=== PATIENT | female | born 1955 | race Caucasian/White ===

== ENCOUNTER 2017-01-20 12:53 | Observation (INO) ==
[2017-01-20 13:48] LABS: Basophils % 0.5 %; Eosinophils # 0.2 K/mcL (0.0-0.6); Eosinophils % 2.8 %; Hematocrit 28.9 % (35.3-44.9); Hemoglobin 8.8 g/dL (11.5-15.4); Immature Granulocytes % 0.4 % (0-4); Lymphocytes # 1.8 K/mcL (0.6-4.6); Lymphocytes % 23.1 %; Mean Corpuscular HGB Conc 30.4 g/dL (31.6-35.5); Mean Corpuscular Hemoglobin 29.1 pg (28.0-33.3); Mean Corpuscular Volume 95.7 fL (83.0-100.0); Mean Platelet Volume 9.6 fL (9.4-12.4); Monocytes # 0.5 K/mcL (0.0-1.3); Monocytes % 6.7 %; Neutrophils # 5.2 K/mcL (1.6-8.9); Platelet Count 267 K/mcL (140-400); Red Blood Count 3.02 M/mcL (3.82-4.97); Red Cell Distribution Width 13.2 % (11.5-14.5); Segmented Neutrophils % 66.5 %
[2017-01-20 14:00] LABS: Calcium 8.1 mg/dL (8.6-10.8); Potassium 4.5 mEq/L (3.5-4.5)
[2017-01-20 14:02] LABS: INR 1.1; Prothrombin Time 11.4 Seconds (9.4-12.1)
--- NOTE | 2017-01-20 14:03 | Emergency Department Note ---
Disposition Clinical Impression: Asthma with exacerbation Qualifiers: Asthma severity: mild intermittent Qualified Code(s): J45.21 - Mild intermittent asthma with (acute) exacerbation Disposition: Admitted As Inpatient Condition: Good Referrals: Aranza Ring [Primary Care Provider] - Forms: ED Satisfaction Letter SOB HPI - General Chief Complaint: ED Shortness of Breath/Dyspnea Stated Complaint: Cough Source: patient Limitations: no limitations Nursing Notes Reviewed: Yes Vital Signs Reviewed: Yes - History of Present Illness Pt Subjective Complaint: shortness of breath, cough Onset (ago): Just PATIENT SUPPORT REPRESENTATIVE Context: other (Crushable aspiration durinG EGD procedure ) Severity: mild Consistency/Duration: constant Improves with: oxygen, rest, bronchodilators Worsens with: nothing Known history of: asthma Associated symptoms: Denies: chest pain, fever Treatment prior to arrival: oxygen, bronchodilator Cough present: No - Related Data Home Medications Medication Instructions Recorded Confirmed Albuterol Sulfate [Ventolin Hfa] 2 puff IH Q4-6H PRN 01/20/17 01/20/17 Ascorbic Acid [Vitamin C] 500 mg PO DAILY 01/20/17 01/20/17 Budesonide/Formoterol 160/4.5 2 puff IH BIDR 01/20/17 01/20/17 [Symbicort 160/4.5] Bupropion HCl [Wellbutrin Xl] 300 mg PO DAILY 01/20/17 01/20/17 Calcitriol 0.25 mcg PO DAILY 01/20/17 01/20/17 Cholecalciferol (Vitamin D3) 1,000 unit PO DAILY 01/20/17 01/20/17 [Vitamin D3] Citalopram Hydrobromide 40 mg PO DAILY 01/20/17 01/20/17 [Citalopram HBr] Cyanocobalamin (Vitamin B-12) 1,000 mcg PO DAILY 01/20/17 01/20/17 [Vitamin B12] Folic Acid 1 mg PO DAILY 01/20/17 01/20/17 Lisinopril/Hydrochlorothiazide 1 each PO DAILY 01/20/17 01/20/17 [Zestoretic 20-12.5 mg Tablet] Sertraline [Zoloft] 100 mg PO DAILY 01/20/17 01/20/17 raNITIdine HCl [Ranitidine HCl] 150 mg PO BID 01/20/17 01/20/17 Allergies Allergy/AdvReac Type Severity Reaction Status Date / Time codeine AdvReac Nausea Verified 01/20/17 09:44 morphine AdvReac Nausea Verified 01/20/17 09:44 Penicillins [PCN] AdvReac Rash Verified 01/20/17 09:44 Sulfa (Sulfonamide AdvReac Rash Verified 01/20/17 09:44 Antibiotics) All systems ED: reviewed and negative except as stated. Constitutional: Denies: fever, weakness Respiratory: Reports: wheezes Gastrointestinal: Denies: nausea, vomiting Past Medical History - Past Medical History Source: patient, old records reviewed, obtained from family, nursing notes reviewed Medical history: Reports: asthma, GERD, hypertension, renal disease, other Surgical history: Reports: appendectomy, cholecystectomy, orthopedic, other Psychiatric history: Reports: anxiety, depression - Social History Smoking Status: Never smoker Smokeless Tobacco Status: No Alcohol use: Reports: none Drug use: Reports: none Physical Exam - General Limitations: no limitations General appearance: in no apparent distress - Head Head exam: atraumatic, normocephalic, normal inspection - Eye Eye exam: Present: normal appearance, PERRL, EOMI - Expanded Eye Exam Pupils: Left: reactive - ENT ENT exam: normal exam, normal oropharynx, mucous membranes moist - Expanded ENT Exam External ear exam: Present: normal external inspection Mouth exam: Present: normal external inspection Teeth exam: Present: normal inspection Throat exam: Present: normal inspection - Neck Neck exam: Present: normal inspection, full ROM, trachea midline - Chest Chest inspection: Present: normal inspection, symmetric chest wall rise - Respiratory Respiratory exam: Present: normal lung sounds bilaterally - Cardiovascular Cardiovascular exam: Present: regular rate, normal rhythm, normal heart sounds - Abdominal Exam Abdominal exam: Present: soft, Non-Tender. Absent: tenderness, distention, guarding, rebound, rigidity - Extremities Exam Extremities exam: Present: normal inspection, full ROM. Absent: tenderness, pedal edema - Expanded Upper Extremity Exam Shoulder exam: Present: normal inspection, full ROM Arm exam: Present: normal inspection, full ROM Elbow exam: Present: normal inspection, full ROM Forearm/Wrist exam: Present: normal inspection, full ROM Hand exam: Present: normal inspection, full ROM Vascular exam: Normal: capillary refill, radial pulse - Expanded Lower Extremity Exam Hip/Pelvis exam: Present: normal inspection, full ROM Upper leg exam: Present: normal inspection, full ROM Knee exam: Present: normal inspection, full ROM Lower leg exam: Present: normal inspection, full ROM Ankle exam: Present: normal inspection, full ROM Foot/toe exam: Present: normal inspection, full ROM Neurovascular/Tendon exam: Absent: motor deficit, sensory deficit, tendon deficit - Back Exam Back exam: Present: normal inspection, full ROM. Absent: tenderness - Neurological Exam Neurological exam: Present: alert, oriented X3 - Expanded Neurological Exam Patient oriented to: Present: person, place, time Coma Scale Eye Opening: Spontaneous Coma Scale Motor Response: Obeys Commands Coma Scale Verbal Response: Oriented Coma Scale Total: 15 - Psychiatric Psychiatric exam: Present: normal affect, normal mood - Skin Skin exam: Present: warm, dry, intact, normal color Course Vital Signs Temperature 98.7 F 01/20/17 12:59 Pulse Rate 74 01/20/17 12:59 Respiratory Rate 20 01/20/17 12:59 Blood Pressure 108/58 01/20/17 12:59 O2 Sat by Pulse Oximetry 98 01/20/17 12:59 Temperature 98.7 F 01/20/17 12:59 Pulse Rate 61 01/20/17 14:33 Respiratory Rate 18 01/20/17 14:33 Blood Pressure 98/62 01/20/17 14:33 O2 Sat by Pulse Oximetry 100 01/20/17 14:33 Oxygen Delivery Oxygen Delivery Room Air Shortness of Breath/Dyspnea - MDM Narrative Medical decision making narrative: DR. FORD unsure if this is atelectasis the x-ray was done 11:00 questionable aspiration of Mucomyst. The patient's saturations are normal she does have a audible wheezing she complains of some feelings of wheezing at rest without being audible. We gave her breathing treatment and [facility] will decide if they want antibiotics or not - Medical Records Medical records reviewed: Yes I reviewed the patient's medical records. - Lab Data Lab results reviewed: Yes I reviewed the patient's lab results. Result diagrams: 01/20/17 13:36 01/20/17 13:36 Lab Results 01/20/17 01/20/17 01/20/17 Range/Units 13:36 13:36 13:36 WBC 7.8 (4.3-11.1) K/mcL RBC 3.02 L (3.82-4.97) M/mcL Hgb 8.8 L (11.5-15.4) g/dL Hct 28.9 L (35.3-44.9) % MCV 95.7 (83.0-100.0) fL MCH 29.1 (28.0-33.3) pg MCHC 30.4 L (31.6-35.5) g/dL RDW 13.2 (11.5-14.5) % Plt Count 267 (140-400) K/mcL MPV 9.6 (9.4-12.4) fL Immature Gran % 0.4 (0-4) % Seg Neutrophils % 66.5 % Lymphocytes % 23.1 % Monocytes % 6.7 % Eosinophils % 2.8 % Basophils % 0.5 % Neutrophils # 5.2 (1.6-8.9) K/mcL Lymphocytes # 1.8 (0.6-4.6) K/mcL Monocytes # 0.5 (0.0-1.3) K/mcL Eosinophils # 0.2 (0.0-0.6) K/mcL Basophils # 0.0 (0.0-0.2) K/mcL PT 11.4 (9.4-12.1) Seconds INR 1.1 APTT 34.5 (26.0-36.0) Seconds Sodium 140 (136-145) mEq/L Potassium 4.5 (3.5-4.5) mEq/L Chloride 111 H (98-109) mEq/L Carbon Dioxide 23 (19-29) mEq/L BUN 35 H (7-20) mg/dL Creatinine 2.15 H (0.57-1.11) mg/dL Est GFR ( Amer) 28 L (> 60) Est GFR (Non-Af Amer) 23 L (> 60) BUN/Creatinine Ratio 16 (6-26) Glucose 127 H (70-99) mg/dL Calculated Osmolality 300 (280-300) Calcium 8.1 L (8.6-10.8) mg/dL - Radiology Data Radiology results reviewed: Yes I reviewed the patient's radiology results.
[2017-01-20 14:05] LABS: Activated Partial Thrombo Time 34.5 Seconds (26.0-36.0)
[2017-01-20] MEDS ORDERED: methylPREDNISolone 125 MG/2 ML VIAL IVP ONE (14:32)
[2017-01-20] MEDS ORDERED: Ipratropium/Albuterol Neb 3 ML IH ONE (14:32)
[2017-01-20] MEDS ORDERED: Ondansetron 4 MG/2 ML VIAL IVP PRN (15:53)
[2017-01-20] MEDS ORDERED: Naloxone 0.4 MG/ML INJ IVP PRN (15:53)
[2017-01-20] MEDS ORDERED: Acetaminophen 325 MG TABLET PO PRN (15:53)
[2017-01-20] MEDS ORDERED: levoFLOXacin 750 MG TABLET PO SCH (16:00)
--- NOTE | 2017-01-20 16:01 | Internal Med History&Physical ---
Date of Encounter: 01/20/17 Time of Encounter: 15:59 Assessment and Plan (1) Asthma with exacerbation Current visit: Yes Status: Acute Possibly secondary to aspiration of acetylicysteine durng procedure Patient was wheezing at time of review Albuterol q4h prn wheezing Prednisone 40mg daily No hypoxia, continue to monitor Qualifiers: Asthma severity: mild intermittent Qualified Code(s): J45.21 - Mild intermittent asthma with (acute) exacerbation (2) Pneumonia Current visit: Yes Status: Acute CXR done immediately after procedure showed LLL infiltrate Chest CT done here reveals the same Most likely atelectasis vs pneumonitis However, if she has a pneumonia, it is most likely community acquired due to presence of infiltrates right after procedure Patient has no fever or cough, no sick contacts, no phlegm production Patient had no symptoms prior to presentation for her procedure this morning She has multiple medication allergies, and is on QT prolonging medications Will start doxycycline po BID, and Flagyl po for anerobic coverage May escalate prn symptoms Qualifiers: Pneumonia type: due to unspecified organism Laterality: left Lung location: unspecified part of lung Qualified Code(s): J18.9 - Pneumonia, unspecified organism (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 Continue H2 blockers Qualifiers: Monsalve's esophagus type: with dysplasia of unspecified degree Qualified Code(s): K22.719 - Monsalve's esophagus with dysplasia, unspecified; K22.71 - Monsalve's esophagus with dysplasia (4) Depression Current visit: Yes Status: Chronic No suicidal ideations Resume home meds Qualifiers: Depression Type: unspecified Qualified Code(s): F32.9 - Major depressive disorder, single episode, unspecified (5) Hypertension Current visit: Yes Status: Chronic Controlled on Lisinopril-HCTZ daily However, patient with azotemia and increase in Creatinine from last value in November Hold Home meds, Norvasc will be started for HTN prn May resume home meds if renal function improves Qualifiers: Hypertension type: essential hypertension Qualified Code(s): I10 - Essential (primary) hypertension (6) CKD (chronic kidney disease), stage III Current visit: Yes Status: Chronic Creatinine slighlty higher than baseline Gave 500cc bolus, rpt Chem a.m Avoid nephrotoxins (7) Vitamin D deficiency Current visit: Yes Status: Chronic Resume home meds (8) Morbid obesity with BMI of 45.0-49.9, adult Current visit: Yes Status: Chronic Lifestyle modification (9) Anemia Current visit: Yes Status: Chronic HB slightly lower than baseline, no bleeding, resume home meds and monitor Hb Qualifiers: Anemia type: unspecified type Qualified Code(s): D64.9 - Anemia, unspecified Internal Medicine - H&P: HPI Chief complaint: I was told to stay for observation Admitted From: Home Plans for Post Hospital Care: Home History of present illness: Ms. Deleon is a 61 year old female with CKD III, HTN, Intermittent Asthma, Depression, GERD with Barrets esophagus, Morbid Obesity She was at the GI clinic for ablation of her monsalve's esophagus when she developed shortness of breath after the procedure. The quality process engineer thought she may have aspirated acetycysteine during the procedure and recommended observation in the hospital for the next 23 hours patient is seen and evaluated at the bedside with her spouse She reports wheezing fo about 5 minutes prior to the encounter but prior to this , she had no symptoms, she felt winded after the procedure, but denies wheezing at that time She was at her baseline and had no symptoms prior to presentation for her procedure She denies chest pain, palpitations, GI or or neurological symptoms She reports a history of chronic anemia and CKD III She is rarely hospitalized and has never been intubated for her asthma, she describes her asthma as mild At time of review, she was receiving nebs and was having mild expiratory bilateral wheezing. Work up revealed a HB of 8.8 (baseline is about 10), Cr slighlty elevated to 2.1 , last recorded was 1.8 CXR done immediately procedure showed LLL infiltrates, suspected to be atelectasis or pneumonia, Chest CT done showed the same, as well as non- specific findings Past Med Surg Social Fam HX - Past Medical History Medical history: asthma, GERD, hypertension, renal disease, other Psychiatric history: anxiety, depression - Past Surgical History Surgical History: appendectomy, cholecystectomy, orthopedic, other - Social History Smoking Status: Never smoker Smokeless Tobacco Status: No Alcohol use: none Drug use: none Internal Medicine - H&P: Meds Albuterol Sulfate [Ventolin Hfa] 2 puff IH Q4-6H PRN 01/20/17 [History] Ascorbic Acid [Vitamin C] 500 mg PO DAILY 01/20/17 [History] Budesonide/Formoterol 160/4.5 [Symbicort 160/4.5] 2 puff IH BIDR 01/20/17 [ History] Bupropion HCl [Wellbutrin Xl] 300 mg PO DAILY 01/20/17 [History] Calcitriol 0.25 mcg PO DAILY 01/20/17 [History] Cholecalciferol (Vitamin D3) [Vitamin D3] 1,000 unit PO DAILY 01/20/17 [History] Citalopram Hydrobromide [Citalopram HBr] 40 mg PO DAILY 01/20/17 [History] Cyanocobalamin (Vitamin B-12) [Vitamin B12] 1,000 mcg PO DAILY 01/20/17 [History ] Folic Acid 1 mg PO DAILY 01/20/17 [History] Lisinopril/Hydrochlorothiazide [Zestoretic 20-12.5 mg Tablet] 1 each PO DAILY [History] Sertraline [Zoloft] 100 mg PO DAILY 01/20/17 [History] raNITIdine HCl [Ranitidine HCl] 150 mg PO BID 01/20/17 [History] Allergies codeine Adverse Reaction (Verified 01/20/17 09:44) Nausea morphine Adverse Reaction (Verified 01/20/17 09:44) Nausea Penicillins [PCN] Adverse Reaction (Verified 01/20/17 09:44) Rash Sulfa (Sulfonamide Antibiotics) Adverse Reaction (Verified 01/20/17 09:44) Rash All Systems PM: A 10-system review of systems was performed and is negative for pertinent findings except as documented above in the HPI. - Constitutional Constitutional: no chills, no fever(s), no night sweats - EENT Eyes: no change in vision, no discharge, no pain, no photophobia Ears: no ear discharge, no ear pain, no tinnitus Nose, mouth and throat: no dysphagia, no nasal discharge, no neck pain, no sore throat - Cardiovascular Cardiovascular ROS IM: no chest pain, no diaphoresis, no dyspnea, no lightheadedness, no palpitations, no syncope - Respiratory Respiratory: as per HPI - Gastrointestinal Gastrointestinal: no abdominal pain, no diarrhea, no hematemesis, no hematochezia, no melena, no nausea, no vomiting - Genitourinary Genitourinary: no change in urinary stream, no dysuria, no flank pain, no hematuria - Musculoskeletal Musculoskeletal ROS IM: no numbness, no tingling - Integumentary Integumentary IM: no rash, no unusual bruising - Neurological Neurological ROS: no confusion, no convulsions, no focal weakness, no numbness, no tingling, no tremor(s) - Hematologic/Lymphatic Hematologic/Lymphatic: no easy bruising - Constitutional Vitals: Temp Pulse Resp BP Pulse Ox 98.7 F 61 18 91/50 100 01/20/17 12:59 01/20/17 14:33 01/20/17 15:36 01/20/17 15:36 01/20/17 15:11 General appearance: Present: A&O X 3, morbidly obese, pleasant, no acute distress - Head Head exam: Present: atraumatic, normocephalic - Eye Eye exam: Present: PERRL, conjuntiva pink, sclera anicteric Pupils: Present: PERRL - Neck Neck exam general surgery: Present: supple, trachea midline. Absent: lymphadenopathy - Respiratory Respiratory exam: Present: CTAB, wheezes. Absent: accessory muscle use, rales, rhonchi - Cardiovascular Cardiovascular exam: Present: RRR, +S1, +S2. Absent: diastolic murmur, gallop, rubs, systolic murmur - GI/Abdominal GI/Abdominal exam: Present: normal bowel sounds, soft, no peritoneal signs. Absent: distended, tenderness - Extremities Exam Extremities exam: Present: warm, radial pulses palpable and symetrical. Absent : calf tenderness, cyanotic, pedal edema - Neurological Exam Neurological exam: Present: alert, CN II-XII intact, oriented X3, no focal deficits. Absent: pronater drift, facial droop, speech deficit - Skin Skin exam: Present: dry, intact Internal Med - H&P Results - Labs CBC & Chem 7: 01/20/17 13:36 01/20/17 13:36
[2017-01-20] MEDS ORDERED: Albuterol 2.5 MG/3 ML NEBULIZER IH PRN (16:03)
[2017-01-20] MEDS ORDERED: 0.9 % Sodium Chloride 500 ML IVC ONE (16:05)
[2017-01-20] MEDS: predniSONE 20 MG TABLET PO SCH (17:10)
[2017-01-20] MEDS ORDERED: Famotidine 20 MG TABLET PO SCH (21:00)
[2017-01-20] MEDS: Doxycycline 100 MG CAPSULE PO SCH (21:37)
[2017-01-20] MEDS: metroNIDAZOLE 500 MG TABLET PO SCH (21:37)
[2017-01-20] MEDS ORDERED: Budesonide/Formoterol 160/4.5 MDI IH SCH (22:00)
[2017-01-21 05:52] LABS: Basophils % 0.1 %; Hematocrit 28.8 % (35.3-44.9); Hemoglobin 9.1 g/dL (11.5-15.4); Immature Granulocytes % 0.6 % (0-4); Lymphocytes # 0.8 K/mcL (0.6-4.6); Lymphocytes % 4.7 %; Mean Corpuscular HGB Conc 31.6 g/dL (31.6-35.5); Mean Corpuscular Hemoglobin 30.1 pg (28.0-33.3); Mean Corpuscular Volume 95.4 fL (83.0-100.0); Monocytes # 0.1 K/mcL (0.0-1.3); Monocytes % 0.6 %; Platelet Count 284 K/mcL (140-400); Red Blood Count 3.02 M/mcL (3.82-4.97); Red Cell Distribution Width 13.2 % (11.5-14.5)
[2017-01-21 06:00] LABS: Calcium 8.3 mg/dL (8.6-10.8)
[2017-01-21 07:32] VITALS: BP 136/58
[2017-01-21] MEDS ORDERED: Famotidine 20 MG TABLET PO SCH (07:55)
[2017-01-21] MEDS ORDERED: Ascorbic Acid 500 MG TABLET PO SCH (09:00)
[2017-01-21] MEDS ORDERED: Lisinopril-HCTZ 20-12.5mg TABLET PO SCH (09:00)
[2017-01-21] MEDS ORDERED: Cyanocobalamin (B-12) 1,000 MCG TABLET PO SCH (09:00)
[2017-01-21] MEDS ORDERED: BuPROPion XL (24 HR) 150 MG TABLET PO SCH (09:00)
[2017-01-21] MEDS ORDERED: Cholecalciferol (D-3) 1,000 UNIT TABLET PO SCH (09:00)
[2017-01-21] MEDS ORDERED: Folic Acid 1 MG TABLET PO SCH (09:00)
[2017-01-21] MEDS: Doxycycline 100 MG CAPSULE PO SCH (09:04)
[2017-01-21] MEDS: predniSONE 20 MG TABLET PO SCH (09:04)
[2017-01-21] MEDS: metroNIDAZOLE 500 MG TABLET PO SCH (09:05)
--- NOTE | 2017-01-21 09:36 | Discharge Summary ---
Date of Encounter: 01/21/17 Time of Encounter: 09:34 - Discharge Diagnosis (1) Asthma with exacerbation Priority: Primary Status: Acute Qualifiers: Asthma severity: mild intermittent Qualified Code(s): J45.21 - Mild intermittent asthma with (acute) exacerbation (2) Pneumonia Priority: Secondary Status: Suspected Qualifiers: Pneumonia type: aspiration pneumonia Aspiration pneumonia type: unspecified Laterality: left Lung location: unspecified part of lung Qualified Code(s): J69.0 - Pneumonitis due to inhalation of food and vomit (3) Ellington esophagus Priority: Secondary Status: Chronic Qualifiers: Ellington's esophagus type: with dysplasia of unspecified degree Qualified Code(s): K22.719 - Ellington's esophagus with dysplasia, unspecified; K22.71 - Ellington's esophagus with dysplasia (4) Hypertension Priority: Secondary Status: Chronic Qualifiers: Hypertension type: essential hypertension Qualified Code(s): I10 - Essential (primary) hypertension (5) CKD (chronic kidney disease), stage III Priority: Secondary Status: Chronic (6) Vitamin D deficiency Priority: Secondary Status: Chronic (7) Depression Priority: Secondary Status: Chronic Qualifiers: Depression Type: unspecified Qualified Code(s): F32.9 - Major depressive disorder, single episode, unspecified (8) Morbid obesity with BMI of 45.0-49.9, adult Priority: Secondary Status: Chronic - Discharge Medications Prescriptions: Levofloxacin [Levaquin] 750 mg PO Q48H #4 tablet predniSONE [PredniSONE] 40 mg PO DAILY #8 tablet Home Medications: Albuterol Sulfate [Ventolin Hfa] 2 puff IH Q4-6H PRN 01/20/17 [History] Ascorbic Acid [Vitamin C] 500 mg PO DAILY 01/20/17 [History] Budesonide/Formoterol 160/4.5 [Symbicort 160/4.5] 2 puff IH BIDR 01/20/17 [ History] Bupropion HCl [Wellbutrin Xl] 300 mg PO DAILY 01/20/17 [History] Calcitriol 0.25 mcg PO DAILY 01/20/17 [History] Cholecalciferol (Vitamin D3) [Vitamin D3] 1,000 unit PO DAILY 01/20/17 [History] Citalopram Hydrobromide [Citalopram HBr] 40 mg PO DAILY 01/20/17 [History] Cyanocobalamin (Vitamin B-12) [Vitamin B12] 1,000 mcg PO DAILY 01/20/17 [History ] Folic Acid 1 mg PO DAILY 01/20/17 [History] Lisinopril/Hydrochlorothiazide [Zestoretic 20-12.5 mg Tablet] 1 each PO DAILY [History] Sertraline [Zoloft] 100 mg PO DAILY 01/20/17 [History] raNITIdine HCl [Ranitidine HCl] 150 mg PO BID 01/20/17 [History] Levofloxacin [Levaquin] 750 mg PO Q48H #4 tablet 01/21/17 [Rx] predniSONE [PredniSONE] 40 mg PO DAILY #8 tablet 01/21/17 [Rx] Allergies/Adverse Reactions: Allergies codeine Adverse Reaction (Verified 01/20/17 09:44) Nausea morphine Adverse Reaction (Verified 01/20/17 09:44) Nausea Penicillins [PCN] Adverse Reaction (Verified 01/20/17 09:44) Rash Sulfa (Sulfonamide Antibiotics) Adverse Reaction (Verified 01/20/17 09:44) Rash Date of admission: 01/20/17 15:05 Primary care physician: Aranza Ring Discharging clinician: Tanner Norris Anticipated date of discharge: 01/21/17 - Patient Status Disposition: Home, Self-Care Condition: Good Functional capacity at discharge: independent ambulation Overall status at discharge: patient is progressing back to baseline - Discharge Instructions Instructions: Prednisone (By mouth), Levofloxacin (By mouth), Asthma (DC) Follow Up With: Tatiana Victor CNP [Advanced Practice Nurse] - 02/02/17 8:00 am (Please follow up with Tatiana as scheduled and you will still see Dr. Ring the following week as previously scheduled) Ailyn Aggarwal MD [Partnered Physician] - (Office will call you with an appointment date and time. Follow up may end up being with one of Dr. Aggarwal's CREDENTIALING MANAGER. Office will let you know when they call you with your appointment information.) - Diet and Activity Activity: resume usual activities as tolerated Diet: advance to your usual diet Hospital course: Ms. Deleon is a 61 year old female with hx of asthma placed in observation yesterday. She had undergone EGD and there was concern for aspiration. She was found to have Barretts esophagus and CXR was concerning for pneumonia. She was wheezing as well and due to her history of asthma she was placed on steroids and abx and observed. Ms. Deleon was placed in observation on med tele. She received abx and steroids as well as aerosols. She was on a clear liquid diet and advanced to full liquid without issue. She had no acute issues overnight and in AM of she was feeling well. She was afebrile and vitals were stable. At that time she was felt ready for discharge home on PO abx and steroids with outpatient follow up. - Time Spent with Patient Total time spent providing and/or coordinating discharge services: 28min - Constitutional Vitals: Temp Pulse Resp BP Pulse Ox 98.1 F 64 16 136/58 99 01/21/17 07:32 01/21/17 07:32 01/21/17 07:32 01/21/17 07:32 01/21/17 07:32 General appearance: Present: A&O X 3, morbidly obese, pleasant - Head Head exam: Present: normocephalic - Eye Eye exam: Present: EOMI, conjuntiva pink - ENT ENT exam: Present: mucous membranes dry - Respiratory Respiratory exam: Present: CTAB. Absent: rales, rhonchi, wheezes - Cardiovascular Cardiovascular exam: Present: RRR. Absent: tachycardia - GI/Abdominal GI/Abdominal exam: Present: soft. Absent: tenderness - Extremities Exam Extremities exam: Present: warm. Absent: pedal edema, tenderness - Neurological Exam Neurological exam: Present: alert, oriented X3, no focal deficits - Psychiatric Psychiatric exam: Present: normal affect, normal mood - Skin Skin exam: Present: dry, warm. Absent: rash
[2017-01-21] MEDS ORDERED: levoFLOXacin 750 MG TABLET PO ONE (09:47)
== END 2017-01-21 10:45 | disposition home or self-care (01) ==
LOC: 2ANU 12:53 → EMEROO 12:53 → 2ANU 16:42
PROVIDERS: ADMIT Internal Medicine; ATTEND Internal Medicine

== ENCOUNTER 2017-11-06 18:31 | Inpatient (IN) ==
[2017-11-06] MEDS ORDERED: 0.9 % Sodium Chloride 1,000 ML IVC ONE ×2 (18:51→22:48)
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
[2017-11-06 19:40] LABS: Bilirubin,Urine Negative (Negative); Blood,Urine Negative (Negative); Clarity,Urine Cloudy (Clear); Color,Urine Yellow (Yellow); Glucose,Urine (UA) Normal (Normal); Ketones,Urine Negative (Negative); Leukocyte Esterase,Urine Negative (Negative); Nitrite,Urine Negative (Negative); Protein,Urine Trace mg/dL (Neg-Trace); Urobilinogen,Urine Normal (Normal)
[2017-11-06 19:43] LABS: Bacteria,Urine None Seen per hpf (None-Few); Hyaline Casts,Urine None Seen per lpf (None-Few); Squamous Epithelial Cell,Urine Many per lpf (None-Few); WBC,Urine 0-3 per hpf (0-3)
[2017-11-06 19:51] LABS: Basophils % 0.3 %; Eosinophils % 0.1 %; Hematocrit 34.9 % (35.3-44.9); Hemoglobin 11.4 g/dL (11.5-15.4); Immature Granulocytes % 0.5 % (0-4); Lymphocytes # 0.6 K/mcL (0.6-4.6); Lymphocytes % 3.7 %; Mean Corpuscular HGB Conc 32.7 g/dL (31.6-35.5); Mean Corpuscular Hemoglobin 29.7 pg (28.0-33.3); Mean Corpuscular Volume 90.9 fL (83.0-100.0); Mean Platelet Volume 9.5 fL (9.4-12.4); Monocytes # 0.5 K/mcL (0.0-1.3); Monocytes % 3.4 %; Neutrophils # 13.7 K/mcL (1.6-8.9); Platelet Count 269 K/mcL (140-400); Red Blood Count 3.84 M/mcL (3.82-4.97)
[2017-11-06 19:56] LABS: INR 1.2; Prothrombin Time 12.5 Seconds (9.4-12.1)
[2017-11-06 19:59] LABS: Activated Partial Thrombo Time 30.8 Seconds (26.0-36.0)
[2017-11-06] MEDS ORDERED: Acyclovir 750 MG in D5% in Water 250 ML IVPB STA (20:11)
[2017-11-06] MEDS ORDERED: cefTRIAXone 2,000 MG in Water for inj. (sterile) 20 ML 20 ML IVP ONE (20:11)
[2017-11-06 20:12] LABS: Alanine Aminotransferase 11 Units/L (7-52); Albumin 4.3 g/dL (3.5-5.7); Albumin/Globulin Ratio 1.5 (1.1-2.2); Alkaline Phosphatase 77 Units/L (34-104); Aspartate Amino Transferase 10 Units/L (13-39); BUN/Creatinine Ratio 9 (6-26); Bilirubin,Direct 0.2 mg/dL (0.0-0.2); Bilirubin,Indirect 0.2 mg/dL (0.0-1.2); Bilirubin,Total 0.4 mg/dL (0.3-1.0); Blood Urea Nitrogen 26 mg/dL (8-23); Calcium 8.8 mg/dL (8.6-10.3); Carbon Dioxide 20 mEq/L (23-29); Chloride 107 mEq/L (98-107); Globulin 2.9 g/dL (2.4-3.5); Glucose 136 mg/dL (70-105); Magnesium 1.3 mg/dL (1.6-2.6); Osmolality,Calculated 291 (280-300); Phosphorous 3.1 mg/dL (2.7-4.5); Potassium 4.1 mEq/L (3.5-5.1); Sodium 137 mEq/L (136-145); Total Protein 7.2 g/dL (6.4-8.9); eGFR For African Americans 21 (> 60); eGFR For Non-African Americans 17 (> 60)
[2017-11-06 20:13] LABS: Troponin I < 0.03 ng/mL (< 0.04)
[2017-11-06 21:13] LABS: Red Blood Cell,CSF < 0.002 M/mcL
[2017-11-06 21:14] LABS: Appearance,CSF Clear (Clear)
[2017-11-06 21:33] LABS: Glucose,CSF 68 mg/dL (40-70); Total Protein,CSF 27 mg/dL (15-45)
[2017-11-06] MEDS ORDERED: Naloxone 0.4 MG/ML INJ IVP PRN (22:48)
--- NOTE | 2017-11-06 22:49 | Emergency Department Note ---
Disposition Clinical Impression: Encephalopathy, Acute kidney injury, Colitis Altered mental status Qualifiers: Altered mental status type: delirium Qualified Code(s): R41.0 - Disorientation , unspecified Leukocytosis Qualifiers: Leukocytosis type: unspecified Qualified Code(s): D72.829 - Elevated white blood cell count, unspecified Closed fracture of 5th metacarpal Qualifiers: Encounter type: initial encounter Metacarpal location: neck Fracture alignment : nondisplaced Laterality: right Qualified Code(s): S62.366A - Nondisplaced fracture of neck of fifth metacarpal bone, right hand, initial encounter for closed fracture Disposition: Admitted As Inpatient Condition: Undetermined General Adult HPI - General Chief complaint: ED Altered Mental Status Stated complaint: AMS Time Seen by Provider: 11/06/17 18:51 Source: patient Mode of arrival: private vehicle Limitations: altered mental status Nursing Notes Reviewed: Yes Vital Signs Reviewed: Yes - History of Present Illness Pain Scale: 10 - Related Data Home Medications Medication Instructions Recorded Confirmed Albuterol Sulfate [Ventolin Hfa] 2 puff IH Q4-6H PRN 01/20/17 11/06/17 Ascorbic Acid [Vitamin C] 500 mg PO DAILY 01/20/17 11/06/17 Bupropion HCl [Wellbutrin Xl] 300 mg PO DAILY 01/20/17 11/06/17 Calcitriol 0.25 mcg PO DAILY 01/20/17 11/06/17 Cholecalciferol (Vitamin D3) 5,000 unit PO DAILY 01/20/17 11/06/17 [Vitamin D3] Cyanocobalamin (Vitamin B-12) 1,000 mcg PO DAILY 01/20/17 11/06/17 [Vitamin B12] Folic Acid 1 mg PO DAILY 01/20/17 11/06/17 Gabapentin [Neurontin] 600 mg PO HS 03/16/17 11/06/17 Lisinopril-HCTZ 20-12.5 [Prinzide 1 tab PO DAILY 03/16/17 11/06/17 20-12.5] Pantoprazole Sodium 40 mg PO DAILY 03/16/17 11/06/17 Trazodone HCl 100 mg PO HS 04/22/17 11/06/17 Iron Ag,Ps/C/Fa6/B12/Zn/SA/Sto 1 each PO DAILY 11/06/17 11/06/17 [Niferex Tablet] Sertraline [Zoloft] 100 mg PO DAILY 11/06/17 11/06/17 Allergies Allergy/AdvReac Type Severity Reaction Status Date / Time codeine AdvReac Nausea Verified 09/29/17 09:44 morphine AdvReac Nausea Verified 09/29/17 09:44 Penicillins [PCN] AdvReac Rash Verified 09/29/17 09:44 Sulfa (Sulfonamide AdvReac Rash Verified 09/29/17 09:44 Antibiotics) Constitutional: Reports: fever, chills, weakness ENT ED: Denies: congestion Cardiovascular: Denies: chest pain Respiratory: Denies: dyspnea Gastrointestinal: Reports: abdominal pain, nausea, vomiting, diarrhea. Denies: constipation, hematemesis, melena, hematochezia Musculoskeletal: Denies: back pain, neck pain Integumentary: Denies: rash Neurological: Reports: confusion. Denies: headache Past Medical History - Past Medical History Medical history: Reports: asthma, GERD, hyperlipidemia, hypertension, renal disease, other Surgical history: Reports: appendectomy, cholecystectomy, herniorrhaphy Psychiatric history: Reports: anxiety, depression CHRONIC CONDITION NURSE history: Reports: bilateral tubal ligation - Social History Smoking Status: Former smoker Smokeless Tobacco Status: No Alcohol use: Reports: rarely Drug use: Reports: none Physical Exam - General Limitations: altered mental status General appearance: alert, in no apparent distress Course Vital Signs Temperature 100.1 F H 11/06/17 18:34 Pulse Rate 116 11/06/17 18:34 Respiratory Rate 22 11/06/17 18:34 Blood Pressure 121/70 11/06/17 18:34 O2 Sat by Pulse Oximetry 95 11/06/17 18:34 Temperature 101.6 F H 11/06/17 21:45 Pulse Rate 82 11/06/17 23:19 Respiratory Rate 18 11/06/17 23:19 Blood Pressure 99/54 11/06/17 23:19 O2 Sat by Pulse Oximetry 98 11/06/17 23:19 Oxygen Delivery Oxygen Delivery Nasal Cannula Medical Decision Making - Lab Data Result diagrams: 11/06/17 18:52 11/06/17 18:52 Lab Results 11/06/17 11/06/17 11/06/17 Range/Units 18:52 18:52 18:52 WBC 14.9 H (4.3-11.1) K/mcL RBC 3.84 (3.82-4.97) M/mcL Hgb 11.4 L (11.5-15.4) g/dL Hct 34.9 L (35.3-44.9) % MCV 90.9 (83.0-100.0) fL MCH 29.7 (28.0-33.3) pg MCHC 32.7 (31.6-35.5) g/dL RDW 13.0 (11.5-14.5) % Plt Count 269 (140-400) K/mcL MPV 9.5 (9.4-12.4) fL Immature Gran % 0.5 (0-4) % Seg Neutrophils % 92.0 % Lymphocytes % 3.7 % Monocytes % 3.4 % Eosinophils % 0.1 % Basophils % 0.3 % Neutrophils # 13.7 H (1.6-8.9) K/mcL Lymphocytes # 0.6 (0.6-4.6) K/mcL Monocytes # 0.5 (0.0-1.3) K/mcL Eosinophils # 0.0 (0.0-0.6) K/mcL Basophils # 0.0 (0.0-0.2) K/mcL PT (9.4-12.1) Seconds INR APTT (26.0-36.0) Seconds Sodium 137 (136-145) mEq/L Potassium 4.1 (3.5-5.1) mEq/L Chloride 107 (98-107) mEq/L Carbon Dioxide 20 L (23-29) mEq/L BUN 26 H (8-23) mg/dL Creatinine 2.77 H (0.60-1.20) mg/dL Est GFR ( Amer) 21 L (> 60) Est GFR (Non-Af Amer) 17 L (> 60) BUN/Creatinine Ratio 9 (6-26) Glucose 136 H (70-105) mg/dL Calculated Osmolality 291 (280-300) Lactic Acid 0.9 (0.5-2.2) mmol/L Calcium 8.8 (8.6-10.3) mg/dL Phosphorus 3.1 (2.7-4.5) mg/dL Magnesium 1.3 L (1.6-2.6) mg/dL Total Bilirubin 0.4 (0.3-1.0) mg/dL Direct Bilirubin 0.2 (0.0-0.2) mg/dL Indirect Bilirubin 0.2 (0.0-1.2) mg/dL AST 10 L (13-39) Units/L ALT 11 (7-52) Units/L Alkaline Phosphatase 77 (34-104) Units/L Troponin I < 0.03 (< 0.04) ng/mL Serum Total Protein 7.2 (6.4-8.9) g/dL Albumin 4.3 (3.5-5.7) g/dL Globulin 2.9 (2.4-3.5) g/dL Albumin/Globulin Ratio 1.5 (1.1-2.2) Urine Color (Yellow) Urine Clarity (Clear) Urine pH (5.0-8.0) pH Units Ur Specific [place] (1.010-1.025) Urine Protein (Neg-Trace) mg/dL Urine Glucose (UA) (Normal) mg/dL Urine Ketones (Negative) mg/dL Urine Blood (Negative) Urine Nitrite (Negative) Urine Bilirubin (Negative) Urine Urobilinogen (Normal) mg/dL Ur Leukocyte Esterase (Negative) Urine Microscopic RBC (0-3) per hpf Urine Microscopic WBC (0-3) per hpf Ur Squamous Epith Cells (None-Few) per lpf Urine Bacteria (None-Few) per hpf Hyaline Casts (None-Few) per lpf Ur Culture Indicated? (NO) CSF Volume mL CSF Appearance (Clear) CSF Color (Colorless) CSF RBC (0.000 - 0.002) M/mcL CSF Tot Nucleated Cells (0-5) TNC/mcL CSF Glucose (40-70) mg/dL CSF Xanth Comm (Not Observe) CSF Total Protein (15-45) mg/dL 11/06/17 11/06/17 11/06/17 Range/Units 19:27 19:38 20:51 WBC (4.3-11.1) K/mcL RBC (3.82-4.97) M/mcL Hgb (11.5-15.4) g/dL Hct (35.3-44.9) % MCV (83.0-100.0) fL MCH (28.0-33.3) pg MCHC (31.6-35.5) g/dL RDW (11.5-14.5) % Plt Count (140-400) K/mcL MPV (9.4-12.4) fL Immature Gran % (0-4) % Seg Neutrophils % % Lymphocytes % % Monocytes % % Eosinophils % % Basophils % % Neutrophils # (1.6-8.9) K/mcL Lymphocytes # (0.6-4.6) K/mcL Monocytes # (0.0-1.3) K/mcL Eosinophils # (0.0-0.6) K/mcL Basophils # (0.0-0.2) K/mcL PT 12.5 H (9.4-12.1) Seconds INR 1.2 APTT 30.8 (26.0-36.0) Seconds Sodium (136-145) mEq/L Potassium (3.5-5.1) mEq/L Chloride (98-107) mEq/L Carbon Dioxide (23-29) mEq/L BUN (8-23) mg/dL Creatinine (0.60-1.20) mg/dL Est GFR ( Amer) (> 60) Est GFR (Non-Af Amer) (> 60) BUN/Creatinine Ratio (6-26) Glucose (70-105) mg/dL Calculated Osmolality (280-300) Lactic Acid (0.5-2.2) mmol/L Calcium (8.6-10.3) mg/dL Phosphorus (2.7-4.5) mg/dL Magnesium (1.6-2.6) mg/dL Total Bilirubin (0.3-1.0) mg/dL Direct Bilirubin (0.0-0.2) mg/dL Indirect Bilirubin (0.0-1.2) mg/dL AST (13-39) Units/L ALT (7-52) Units/L Alkaline Phosphatase (34-104) Units/L Troponin I (< 0.04) ng/mL Serum Total Protein (6.4-8.9) g/dL Albumin (3.5-5.7) g/dL Globulin (2.4-3.5) g/dL Albumin/Globulin Ratio (1.1-2.2) Urine Color Yellow (Yellow) Urine Clarity Cloudy A (Clear) Urine pH 5.0 (5.0-8.0) pH Units Ur Specific [place] 1.020 (1.010-1.025) Urine Protein Trace (Neg-Trace) mg/dL Urine Glucose (UA) Normal (Normal) mg/dL Urine Ketones Negative (Negative) mg/dL Urine Blood Negative (Negative) Urine Nitrite Negative (Negative) Urine Bilirubin Negative (Negative) Urine Urobilinogen Normal (Normal) mg/dL Ur Leukocyte Esterase Negative (Negative) Urine Microscopic RBC 3-5 H (0-3) per hpf Urine Microscopic WBC 0-3 (0-3) per hpf Ur Squamous Epith Cells Many H (None-Few) per lpf Urine Bacteria None Seen (None-Few) per hpf Hyaline Casts None Seen (None-Few) per lpf Ur Culture Indicated? NO (NO) CSF Volume 4.0 mL CSF Appearance Clear (Clear) CSF Color Colorless (Colorless) CSF RBC < 0.002 (0.000 - 0.002) M/mcL CSF Tot Nucleated Cells < 3 (0-5) TNC/mcL CSF Glucose 68 (40-70) mg/dL CSF Xanth Comm Not Observed (Not Observe) CSF Total Protein 27 (15-45) mg/dL Attestation Statement - Attestation Attestation: I, Paul Loja, examined this patient and my medical decision-making was reviewed with the [employer]/PA/Advanced Practice Nurse/Resident Physician. I agree with the documented findings, disposition and treatment plan as described except to the extent set forth below. 61-year-old female presents to the emergency department, brought by family for altered mental status. Family states she has been having GI upset with nausea and vomiting and diarrhea over the past 4-5 days. today she developed acute altered mental status, she is stating that she is on a spaceship and is concerned about alien probing during my conversation with her. Family states that this is never occurred before. No history of IV drug abuse or other illicit drug use. No recent medication changes. Patient went to visit her child in the corrections facility however she was too altered to get out of the car. When the returned he had found that she was incontinent of urine and stool in the car and was babbling to herself. No recent trauma. Patient does describe having a fever of 102 earlier in the day. She denies taking Tylenol and ibuprofen prior to arrival in the emergency department. She is not febrile on initial evaluation however she does feel warm. We repeated the temperature and it did not become febrile with an oral temperature. Antibiotics were started for possible meningitis. During this time she had CT of her head to rule out acute mass. After verbal and written consent were obtained with the family and the patient after discussion of risks and benefits , the resident, Dr. Reaves, performed a lumbar puncture which did not show significant evidence of meningitis. Patient is still receiving acyclovir until we can rule out herpetic encephalopathy. Patient will be admitted to the hospitalist for further care and evaluation of her altered mental status. Vital signs are stable prior to arrival. The high probability of a clinically significant, sudden or life threatening deterioration of the neurologic system(s) required my full and direct attention , intervention and personal management. The aggregate critical care time was 35 minutes. This time is in addition to time spent performing reported procedures but includes the following: x Data Review and interpretation x Patient assessment and monitoring of vital signs x Documentation x Medication orders and management
[2017-11-06] MEDS ORDERED: Vancomycin (wt based) 1,000 MG VIAL IVPB SCH (23:00)
[2017-11-06] MEDS ORDERED: Acyclovir 500 MG in D5% in Water 100 ML IVPB ONE (23:04)
[2017-11-06] MEDS ORDERED: 0.9 % Sodium Chloride 1,000 ML ONE (23:13)
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
[2017-11-06] MEDS ORDERED: MetroNIDAZOLE 500 MG/100 ML 500 MG/100 ML BAG IVPB ONE (23:22)
[2017-11-07] MEDS: 0.9 % Sodium Chloride 1,000 ML IVC SCH ×2 (00:45→01:00)
[2017-11-07 03:48] LABS: C.difficile Toxin A/B by PCR Not detected (Not detect); Campylobacter by PCR Not detected (Not detect); Plesiomonas shigelloides PCR Not detected (Not detect)
[2017-11-07 03:51] LABS: Adenovirus F 40/41 PCR Not detected (Not detect); Astrovirus PCR Not detected (Not detect); Cryptosporidium by PCR Not detected (Not detect); Cyclospora cayetanensis PCR Not detected (Not detect); E. coli O157 by PCR Not detected (Not detect); Entamoeba histolytica PCR Not detected (Not detect); Enteroaggregative E.coli(EAEC) Not detected (Not detect); Enteropathogenic E.coli(EPEC) Not detected (Not detect); Enterotoxigenic E.coli (ETEC) Not detected (Not detect); Giardia lamblia PCR Not detected (Not detect); Norovirus GI/GII PCR Not detected (Not detect); Rotavirus A PCR Not detected (Not detect); Salmonella PCR ***DETECTED*** (Not detect); Sapovirus PCR Not detected (Not detect); Shig/EnteroinvasiveE coli EIEC Not detected (Not detect); Shigalike tox-prod E coli STEC Not detected (Not detect); Vibrio PCR Not detected (Not detect); Vibrio cholerae PCR Not detected (Not detect); Yersinia enterocolitica PCR Not detected (Not detect)
[2017-11-07 04:28] LABS: Basophils % 0.3 %; Eosinophils % 0.1 %; Hematocrit 30.8 % (35.3-44.9); Hemoglobin 9.9 g/dL (11.5-15.4); Immature Granulocytes % 0.6 % (0-4); Lymphocytes % 7.1 %; Mean Corpuscular HGB Conc 32.1 g/dL (31.6-35.5); Mean Corpuscular Volume 93.3 fL (83.0-100.0); Mean Platelet Volume 9.4 fL (9.4-12.4); Monocytes # 1.1 K/mcL (0.0-1.3); Monocytes % 7.2 %; Neutrophils # 12.3 K/mcL (1.6-8.9); Platelet Count 241 K/mcL (140-400); Segmented Neutrophils % 84.7 %
[2017-11-07 04:49] LABS: Calcium 7.7 mg/dL (8.6-10.3); Magnesium 1.9 mg/dL (1.6-2.6); Potassium 3.8 mEq/L (3.5-5.1)
[2017-11-07] MEDS: cefTRIAXone 2,000 MG in Water for inj. (sterile) 20 ML 20 ML IVP SCH ×2 (06:25→17:07)
[2017-11-07] MEDS ORDERED: MetroNIDAZOLE 500 MG/100 ML 500 MG/100 ML BAG IVPB SCH (08:00)
[2017-11-07] MEDS: Ondansetron 4 MG/2 ML VIAL IVP PRN ×2 (08:45→19:56)
[2017-11-07] MEDS: Ascorbic Acid 500 MG TABLET PO SCH (08:46)
[2017-11-07] MEDS: BuPROPion XL (24 HR) 150 MG TABLET PO SCH (08:46)
[2017-11-07] MEDS: Cyanocobalamin (B-12) 1,000 MCG TABLET PO SCH (08:46)
[2017-11-07] MEDS: Folic Acid 1 MG TABLET PO SCH (08:46)
[2017-11-07] MEDS: Cholecalciferol (D-3) 1,000 UNIT TABLET PO SCH (08:46)
[2017-11-07] MEDS: Renal Vitamin 1 MG CAPSULE PO SCH (08:54)
[2017-11-07] MEDS ORDERED: NIFEREX PO SCH (09:00)
[2017-11-07] MEDS ORDERED: Aminoglycoside Consult 1 EACH MC ONE (09:03)
--- NOTE | 2017-11-07 09:51 | Neurology - Consult Note ---
<Callum Recio - Last Filed: 11/07/17 11:01> Date of Encounter: 11/07/17 Time of Encounter: 11:01 Assessment and Plan (1) Toxic metabolic encephalopathy Current Visit: Yes Status: Acute Patient's confusion, hallucinations with fever, nausea, vomiting, diarrhea are more likley 2nd to colitis 2nd to salmonella, dehydration, JEFF Patient's CT scan was negative. Lumbar puncture does not show evidence of viral or bacterial meningitis. Patient has nonfocal, nonlateralizing neuro exam. Brudzinski and Kernig sign negative. Currently she is awake and alert and oriented 3 CSF Gram stain negative. (2) Meningitis Current Visit: Yes Status: Ruled-out patient unlikely to have meningitis as stated above CSF shows total nucleated cells less than 3. Glucose 68, total protein 27. Gram stain negative. Plan: Discontinue vancomycin. Await HSV PCR, If negative discontinue acyclovir. (3) Acute kidney injury Current Visit: Yes Status: Acute 2nd to dehydration and sepsis, from colitis on IVF plan as per primary (4) Sepsis Current Visit: Yes Status: Acute 2nd to salmonoella colitis plan as per primary Qualifiers: Sepsis type: Salmonella Qualified Code(s): A02.1 - Salmonella sepsis (5) Colitis Current Visit: Yes Status: Acute as stated above. (6) Hypertension Current Visit: Yes Status: Chronic controlled. Qualifiers: Hypertension type: essential hypertension Qualified Code(s): I10 - Essential (primary) hypertension History of Present Illness Chief complaint: N/V HPI: Ms. Deleon is a 61 year old female presented with chief complaint of nausea, vomiting, fever. Patient reports her nausea vomiting started over the past few days with at least 20 episodes daily, and constant diarrhea. Patient was also noticed to be confused in the emergency room stating she is on a space ship. and alien's are listening to her conversation. Confusion was started and patient went to visit her child a correctional facility but was very confused even to get out of the car. She also had episode of urine and stool incontinence in the car. On admission patient had a fever 102. Due to symptoms presenting above there is concern for meningitis and neurology was consulted. Patient had lumbar puncture completed in the emergency room. CT scan of the head was negative. 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 Patient was started on vancomycin, Rocephin, acyclovir empirically. This morning patient is alert and oriented 3. She denies blurry vision, hearing loss, tinnitus, difficulty swallowing, numbness, tingling. She denies history of CVA, seizures, head trauma. Past Med Surg Social Fam HX - Past Medical History Medical history: asthma, GERD, hyperlipidemia, hypertension, renal disease, other Psychiatric history: anxiety, depression - Past Surgical History Surgical History: appendectomy, cholecystectomy, herniorrhaphy - Social History Smoking Status: Never smoker Smokeless Tobacco Status: No Alcohol use: rarely Drug use: none - Family History Mother Living Status: Still Living Hx Family Cardiac Disorders: Yes (CABG) Hx Family Neurologic Disorders: Yes (DEMENTIA) Father Living Status: Medications and Allergies Albuterol Sulfate [Ventolin Hfa] 2 puff IH Q4-6H PRN 01/20/17 [History] Ascorbic Acid [Vitamin C] 500 mg PO DAILY 01/20/17 [History] Bupropion HCl [Wellbutrin Xl] 300 mg PO DAILY 01/20/17 [History] Calcitriol 0.25 mcg PO DAILY 01/20/17 [History] Cholecalciferol (Vitamin D3) [Vitamin D3] 5,000 unit PO DAILY 01/20/17 [History] Cyanocobalamin (Vitamin B-12) [Vitamin B12] 1,000 mcg PO DAILY 01/20/17 [History ] Folic Acid 1 mg PO DAILY 01/20/17 [History] Gabapentin [Neurontin] 600 mg PO HS 03/16/17 [History] Lisinopril-HCTZ 20-12.5 [Prinzide 20-12.5] 1 tab PO DAILY 03/16/17 [History] Pantoprazole Sodium 40 mg PO DAILY 03/16/17 [History] Trazodone HCl 100 mg PO HS 04/22/17 [History] Iron Ag,Ps/C/Fa6/B12/Zn/SA/Sto [Niferex Tablet] 1 each PO DAILY 11/06/17 [ History] Sertraline [Zoloft] 100 mg PO DAILY 11/06/17 [History] Mometasone/Formoterol [Dulera 200 Mcg/5 Mcg Inhaler] 2 puff IH BID 11/07/17 [ History] 3 Allergy/AdvReac Type Severity Reaction Status Date / Time codeine AdvReac Nausea Verified 09/29/17 09:44 morphine AdvReac Nausea Verified 09/29/17 09:44 Penicillins [PCN] AdvReac Rash Verified 09/29/17 09:44 Sulfa (Sulfonamide AdvReac Rash Verified 09/29/17 09:44 Antibiotics) All Systems: The remainder of the systems were reviewed and are negative Review of Systems: Constitutional: Reports fevers, chills HEENT: Reports headache, neck pain. denies vision changes, neck pain, sore throat, rhinorrhea Heart: Denies chest pain palpitations Lungs: Denies shortness of breath cough Abdomen: Reports abdominal pain, nausea, vomiting, diarrhea Back: Denies back pain Kidney: Denies dysuria, hematuria Skin: warm and dry Extremities: Denies swelling, pain Neuro: As per history of present illness Physical Examination - Vital Signs Vital Signs: Initial Vital Signs Temp Pulse Resp BP Pulse Ox 100.1 F H 116 22 121/70 95 11/06/17 18:34 11/06/17 18:34 11/06/17 18:34 11/06/17 18:34 11/06/17 18:34 - Exam Exam: General: without distress HEENT: Head atraumatic, normocephalic, EOMI, PERRLA, neck tender to palpation, absent lymphadenopathy, Moist Mucous Membranes, Heart: Regular rate and rhythm with no murmur Lungs: Clear to auscultation bilaterally Abdomen: Soft tender diffusely, nondistended positive bowel sounds Skin: warm and dry Extremities: Absent pedal edema, Neuro: Negative Brudzinski or Kernig sign Vascular: Pedal and radial pulses 2 out of 4 - Constitutional General appearance: uncomfortable - Neurologic Sensorimotor examination: intact Detailed motor examination: full strength in all major muscle groups Motor examination - right side: 5/5: deltoids, biceps, triceps, wrist flexion, wrist extension, rug cleaning supervisor, hip flexors, tibialis Anterior, quadriceps, toe extension (EHL), plantarflexion Motor examination - left side: 5/5: deltoids, biceps, triceps, wrist flexion, wrist extension, hip flexors, rug cleaning supervisor, quadriceps, tibialis Anterior, toe extension (EHL), plantarflexion Detailed sensory examination: intact Reflexes: Biceps: 2+, Triceps: 2+, Brachioradialis: 2+, Patella: 2+, Achilles: 2 + Mental Status Examination: awake, alert, oriented to person, oriented to place, oriented to time, follows commands appropriately, answers questions appropriately, no aphasia, no aproxia Cranial nerve examination: PERRL, EOMI, visual morse intact, sensory to face intact, mastication intact, no facial asymmetry is present, no dysarthria, hearing is intact symmetrically, soft palate elevates bilaterally upon phonation , flexes SCM and trapezius muscles symmetrically with full power, tongue protrudes midline, no atrophy or facial fasiculations present Cerebellar examination: no dysmetria, performs finger to nose and heel to vance symmetrically without ataxia, no truncal ataxia, no difficulty with rapid alternating movements Results - Laboratory Findings CBC and BMP: 11/07/17 04:08 11/07/17 04:08 Abnormal lab findings: Abnormal lab results WBC 14.6 K/mcL (4.3-11.1) H 11/07/17 04:08 RBC 3.30 M/mcL (3.82-4.97) L 11/07/17 04:08 Hgb 9.9 g/dL (11.5-15.4) L D 11/07/17 04:08 Hct 30.8 % (35.3-44.9) L 11/07/17 04:08 Neutrophils # 12.3 K/mcL (1.6-8.9) H 11/07/17 04:08 PT 12.5 Seconds (9.4-12.1) H 11/06/17 19:38 Sodium 135 mEq/L (136-145) L 11/07/17 04:08 Chloride 109 mEq/L (98-107) H 11/07/17 04:08 Carbon Dioxide 18 mEq/L (23-29) L 11/07/17 04:08 BUN 27 mg/dL (8-23) H 11/07/17 04:08 Creatinine 2.69 mg/dL (0.60-1.20) H 11/07/17 04:08 Est GFR ( Amer) 22 (> 60) L 11/07/17 04:08 Est GFR (Non-Af Amer) 18 (> 60) L 11/07/17 04:08 Glucose 134 mg/dL (70-105) H 11/07/17 04:08 Calcium 7.7 mg/dL (8.6-10.3) L 11/07/17 04:08 AST 10 Units/L (13-39) L 11/06/17 18:52 Urine Clarity Cloudy (Clear) A 11/06/17 19:27 Urine Microscopic RBC 3-5 per hpf (0-3) H 11/06/17 19:27 Ur Squamous Epith Cells Many per lpf (None-Few) H 11/06/17 19:27 Stool Salmonella PCR DETECTED (Not detect) A* 11/07/17 02:17 Consult Discharge Plan - Plan Referrals: Aranza Ring [Primary Care Provider] - <Audi Scott I - Last Filed: 11/07/17 15:08> Date of Encounter: 11/07/17 Assessment and Plan (1) Toxic metabolic encephalopathy Current Visit: Yes Status: Acute Pt was seen and examined, my medical decision was reviewed with the Resident Physician, I agree with the documented findings, disposition and treatment plas as described except to the extent set forth below. At the moment patient did not have any clinical signs and symptoms of meningitis at the same time no focal motor deficit to be suggestive of his stroke or seizure. Suspect that her mental status changes were likely related to underlying infectious etiology that has been addressed and is been already treated. Suggest follow ID recommendations from neurology standpoint I did not see any sinus symptoms to be suggestive of his stroke. Audi Scott MD History of Present Illness HPI: Ms. Deleon is a 61 year old female All Systems: The remainder of the systems were reviewed and are negative Physical Examination - Vital Signs Vital Signs: Initial Vital Signs Temp Pulse Resp BP Pulse Ox 100.1 F H 116 22 121/70 95 11/06/17 18:34 11/06/17 18:34 11/06/17 18:34 11/06/17 18:34 11/06/17 18:34 Results - Laboratory Findings CBC and BMP: 11/07/17 04:08 11/07/17 04:08 Abnormal lab findings: Abnormal lab results WBC 14.6 K/mcL (4.3-11.1) H 11/07/17 04:08 RBC 3.30 M/mcL (3.82-4.97) L 11/07/17 04:08 Hgb 9.9 g/dL (11.5-15.4) L D 11/07/17 04:08 Hct 30.8 % (35.3-44.9) L 11/07/17 04:08 Neutrophils # 12.3 K/mcL (1.6-8.9) H 11/07/17 04:08 PT 12.5 Seconds (9.4-12.1) H 11/06/17 19:38 Sodium 135 mEq/L (136-145) L 11/07/17 04:08 Chloride 109 mEq/L (98-107) H 11/07/17 04:08 Carbon Dioxide 18 mEq/L (23-29) L 11/07/17 04:08 BUN 27 mg/dL (8-23) H 11/07/17 04:08 Creatinine 2.69 mg/dL (0.60-1.20) H 11/07/17 04:08 Est GFR ( Amer) 22 (> 60) L 11/07/17 04:08 Est GFR (Non-Af Amer) 18 (> 60) L 11/07/17 04:08 Glucose 134 mg/dL (70-105) H 11/07/17 04:08 Calcium 7.7 mg/dL (8.6-10.3) L 11/07/17 04:08 AST 10 Units/L (13-39) L 11/06/17 18:52 Urine Clarity Cloudy (Clear) A 11/06/17 19:27 Urine Microscopic RBC 3-5 per hpf (0-3) H 11/06/17 19:27 Ur Squamous Epith Cells Many per lpf (None-Few) H 11/06/17 19:27 Stool Salmonella PCR DETECTED (Not detect) A* 11/07/17 02:17
[2017-11-07] MEDS: Acetaminophen 325 MG TABLET PO PRN ×2 (10:36→17:21)
[2017-11-07] MEDS: Ringers Solution, Lactated 1,000 ML IVC SCH (11:19)
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
--- NOTE | 2017-11-07 13:38 | Infectious Disease Consult ---
Date of Encounter: 11/07/17 Time of Encounter: 13:33 Assessment and Plan (1) Sepsis Status: Acute Assessment and plan: Temp 101.6, tachycardia, tachypnea, leukocytosis lactic acid was 0.9, 0.6 source of infection likely secondary to gastroenteritis. CT of the abdomen pelvis showed right, descending and proximal sigmoid colon is , likely infectious. Chest x-ray showed no acute process CT showed no acute abnormality urinalysis unremarkable lumbar puncture was done in the ED, Gram stain was negative, CSF WNL stool panel positive for salmonella. Creatinine clearance: 29 based on ideal body weight. patient received one dose acyclovir, one dose vancomycin, 2 doses rocephin empirically as treatment for meningitis. plan: discontinued vanc, rocephin, acyclovir, as meningitis unlikely. CSF culture pending blood cultures x2 pending HSV PCR pending cipro day 1- duration of treatment will depend on blood cultures. Qualifiers: Sepsis type: Salmonella Qualified Code(s): A02.1 - Salmonella sepsis (2) Salmonella enteritis Status: Acute Assessment and plan: Plan as above (3) Acute on chronic renal failure Status: Acute Assessment and plan: baseline Cr about 1.8 etiology likely secondary to dehydration, diarrhea management per primary service. Qualifiers: Acute renal failure type: unspecified Chronic kidney disease stage: stage 3 (moderate) Qualified Code(s): N17.9 - Acute kidney failure, unspecified; N18.3 - Chronic kidney disease, stage 3 (moderate); N18.3 - Chronic kidney disease, stage 3 (moderate) (4) Colitis Status: Acute Assessment and plan: plan as #1 above (5) Encephalopathy Status: Resolved Assessment and plan: Likely secondary to sepsis. Currently resolved. Continue to monitor. (6) Hypertension Status: Chronic Assessment and plan: Management per primary service Qualifiers: Hypertension type: essential hypertension Qualified Code(s): I10 - Essential (primary) hypertension (7) Closed fracture of 5th metacarpal Status: Acute Assessment and plan: Splint placed in the ER orthopedic surgery consulted Qualifiers: Encounter type: initial encounter Metacarpal location: neck Fracture alignment: nondisplaced Laterality: right Qualified Code(s): S62.366A - Nondisplaced fracture of neck of fifth metacarpal bone, right hand, initial encounter for closed fracture Infectious Disease HPI - Data of Consult Patient: new to practice Consult date: 11/07/17 Requesting Physician: Andreas Panda MD Primary Care Provider: Aranza Ring - Consult Narrative Reason for consult: sepsis, suspected meningitis History of present illness: Ms. Deleon is a 61 year old female who arrived to [facility] on 11/06/17 for headache, fever, nausea x2 days, and vomiting x1 day. Infectious disease service was consult it on 11/07/17 for suspected meningitis. Her past medical history includes stage III CKD, iron deficiency anemia, Ashley syndrome, hypertension, asthma, GERD s/p Conchis surgery, chronic abdominal pain. Patient says that ever since her Conchis fundoplication back in February, she has had chronic nausea and diarrhea. On Tuesday, she was having several episodes of diarrhea per day to the point where she could barely sit down without having to get up against the bathroom. She was also having episodes of vomiting that were too numerous to count as well. She denies any blood in her vomit or any blood in her stools. Per family members, patient was also hallucinating upon arrival to the emergency department. Upon arrival to the ED , she had temperature of 100.6, heart rate 116, respirations 22, blood pressure 121/70, oxygen saturation 95% on 3 L. puncture was done in the emergency room and cultures are pending. CSF fluid is within normal limits. Upon admission, pertinent labs include WBC of 14.9, neutrophil 13.7, creatinine 2.77, magnesium 1.3. LFTs were within normal limits, UA unremarkable. Stool panel positive for salmonella. Patient was placed on empiric coverage for meningitis including vancomycin, Rocephin, acyclovir. Neurology was consult it for encephalopathy. Since her admission, vancomycin, acyclovir, Rocephin has been discontinued as CSF analysis showed low likelihood of meningitis. Today, patient states that she still feels ill. She has had multiple episodes of diarrhea since this morning. She did have nausea that was relieved with Zofran. She admits to subjective fevers and chills. She denies chest pain or shortness of breath. Patient is having significant amount of abdominal pain and denies any further issues today. CC: Andreas Panda MD Past Med Surg Social Fam HX - Past Medical History Medical history: asthma, GERD, hyperlipidemia, hypertension, renal disease, other Psychiatric history: anxiety, depression - Past Surgical History Surgical History: appendectomy, cholecystectomy, herniorrhaphy - Social History Smoking Status: Never smoker Smokeless Tobacco Status: No Alcohol use: rarely Drug use: none - Family History Mother Living Status: Still Living Hx Family Cardiac Disorders: Yes (CABG) Hx Family Neurologic Disorders: Yes (DEMENTIA) Father Living Status: Infectious Disease-CN:Meds Albuterol Sulfate [Ventolin Hfa] 2 puff IH Q4-6H PRN 01/20/17 [History] Ascorbic Acid [Vitamin C] 500 mg PO DAILY 01/20/17 [History] Bupropion HCl [Wellbutrin Xl] 300 mg PO DAILY 01/20/17 [History] Calcitriol 0.25 mcg PO DAILY 01/20/17 [History] Cholecalciferol (Vitamin D3) [Vitamin D3] 5,000 unit PO DAILY 01/20/17 [History] Cyanocobalamin (Vitamin B-12) [Vitamin B12] 1,000 mcg PO DAILY 01/20/17 [History ] Folic Acid 1 mg PO DAILY 01/20/17 [History] Gabapentin [Neurontin] 600 mg PO HS 03/16/17 [History] Lisinopril-HCTZ 20-12.5 [Prinzide 20-12.5] 1 tab PO DAILY 03/16/17 [History] Pantoprazole Sodium 40 mg PO DAILY 03/16/17 [History] Trazodone HCl 100 mg PO HS 04/22/17 [History] Iron Ag,Ps/C/Fa6/B12/Zn/SA/Sto [Niferex Tablet] 1 each PO DAILY 11/06/17 [ History] Sertraline [Zoloft] 100 mg PO DAILY 11/06/17 [History] Mometasone/Formoterol [Dulera 200 Mcg/5 Mcg Inhaler] 2 puff IH BID 11/07/17 [ History] 3 Allergy/AdvReac Type Severity Reaction Status Date / Time codeine AdvReac Nausea Verified 09/29/17 09:44 morphine AdvReac Nausea Verified 09/29/17 09:44 Penicillins [PCN] AdvReac Rash Verified 09/29/17 09:44 Sulfa (Sulfonamide AdvReac Rash Verified 09/29/17 09:44 Antibiotics) All systems: reviewed and no additional remarkable complaints except as stated Exam - Constitutional Vitals: Temp Pulse Resp BP Pulse Ox 99.7 F H 68 16 113/64 97 11/07/17 11:27 11/07/17 11:27 11/07/17 11:27 11/07/17 11:27 11/07/17 11:27 General appearance: mild distress, morbidly obese Exam: Lethargic, mild distress, obese - Head Head exam: Present: atraumatic, normocephalic - Respiratory Respiratory exam: Present: CTAB - Cardiovascular Cardiovascular exam: Present: RRR, +S1, +S2 - GI/Abdominal GI/Abdominal exam: Present: distended, soft Additional comments: Soft, distended, significant tenderness to palpation in all 4 quadrants, no guarding present. - Extremities Exam Extremities exam: Present: normal inspection. Absent: calf tenderness, pedal edema, tenderness - Neurological Exam Neurological exam: Present: alert, oriented X3, no focal deficits Additional comments: No signs of meningitis - Psychiatric Psychiatric exam: Present: anxious, depressed Infectious Disease CN: Results - Labs CBC & Chem 7: 11/07/17 04:08 11/07/17 04:08 Serology: Serology 11/07/17 Range/Units 02:17 Stl C. cayetanensis PCR Not detected (Not detect) Stool Rotavirus A PCR Not detected (Not detect) Stl Adenov F 40/41 PCR Not detected (Not detect) Stool Astrovirus (PCR) Not detected (Not detect) Stool Campylobacter PCR Not detected (Not detect) Stl C. diff Tox A/B PCR Not detected (Not detect) Stool Cryptosporidium PCR Not detected (Not detect) Stl Sh Tox Pr E STEC PCR Not detected (Not detect) Stool E coli O157 PCR Not detected (Not detect) Stl Enterotoxigenic E PCR Not detected (Not detect) Stool EPEC (PCR) Not detected (Not detect) Stool EAEC (PCR) Not detected (Not detect) Stl E. histolytica PCR Not detected (Not detect) Stool Giardia Lamblia PCR Not detected (Not detect) Stool Salmonella PCR DETECTED A* (Not detect) Stool Sapovirus (PCR) Not detected (Not detect) Stl P. shigelloides PCR Not detected (Not detect) Stl Shigella/EIEC PCR Not detected (Not detect) St Y.enterocolitica PCR Not detected (Not detect) Stool Vibrio (PCR) Not detected (Not detect) Stl Vibrio cholerae PCR Not detected (Not detect) Stl Norovirus GI/GII PCR Not detected (Not detect) Stl GI Panel (PCR) Com See below Consult Discharge Plan - Plan Referrals: Aranza Ring [Primary Care Provider] - - Attending Attestation I examined this patient and my medical decision-making was reviewed with the Resident Physician. I agree with the documented findings, disposition and treatment plan as described except to the extent set forth below. This is an addendum to original report dictated by resident physician, please refer to residents note for full details. Patient is a 61-year-old woman who was admitted to [place] on November 06 with headache, fever, nausea and vomiting. We are consulted today for sepsis and suspected meningitis. Patient is 61-year-old woman with past medical history mentioned below presented to the emergency department complaining of a headache, fever and nausea for about 2 days prior to admission. Patient also had a vomiting episode on the day of admission. Patient came in to the ED for evaluation. Since admission, patient has been febrile with a MAXIMUM TEMPERATURE of 101.6 Fahrenheit, she has been tachycardic with a heart rate as high as 116, presenting WBC was 14.9 thousand with 92% neutrophils no bands. Patient also was noted to have a BUN of 26 creatinine of 2.77. A UA was obtained and was not impressive. Patient had an LP done on November 06 which showed pleocytosis less than 3, protein of 27 and glucose of 68. Gram stains revealed no bacteria. Cultures are pending. Patient had a stool sent for PCR which came back at detecting salmonella. Abdominal and pelvic CT done on November 06 revealed right descending and proximal sigmoid colitis, infectious or inflammatory. A head CT showed no acute intracranial abnormalities, a chest x- ray showed no acute process. A right wrist fracture reveals right fifth metacarpal head/neck junction fracture with dorsal soft tissue swelling in the hand. On further questioning, patient does have chicken, Doxy, cats and a dog at home. Patient denies any other family members with similar symptoms. Assessment and plan: 1. Severe Sepsis (3 SIRS criteria plus end organ damage) secondary to #2 2. Salmonella gastroenteritis 3. Metabolic Encephalopathy (due to salmonellosis vs typhoid fever?) [employer] work up negative for meningitis 4. Acute on chronic kidney injury CrCl 29 Recommendations d/c vancomycin, rocephine, Acyclovir Start ciprofloxacin IV dose adjust based on CrCl Await blood cultures to finalize
--- NOTE | 2017-11-07 13:50 | Internal Med Progress Note ---
Date of Encounter: 11/07/17 Time of Encounter: 13:48 - Assessment and plan (1) Sepsis Current Visit: Yes Status: Acute Assessment and plan: WBC count is 14.6 today. Continue IV hydration. Stool studies positive for salmonella. Cultures are so far negative. Follow infectious disease recommendations. Continue Rocephin. No signs of meningitis on my exam today. Infectious disease and neurology have been consulted to evaluate this further. We will follow recommendations. Qualifiers: Sepsis type: Salmonella Qualified Code(s): A02.1 - Salmonella sepsis (2) Colitis Current Visit: Yes Status: Acute Assessment and plan: With Salmonella. Continue Rocephin. Supportive care with IV fluids. Antiemetics for nausea or vomiting. We will stop Flagyl. (3) Encephalopathy Current Visit: Yes Status: Resolved Assessment and plan: Improved. Back to baseline now. Acute metabolic encephalopathy due to underlying sepsis. (4) Ellington esophagus Current Visit: Yes Status: Chronic Qualifiers: Ellington's esophagus type: with dysplasia of unspecified degree Qualified Code(s): K22.719 - Ellington's esophagus with dysplasia, unspecified; K22.71 - Ellington's esophagus with dysplasia (5) Hypertension Current Visit: Yes Status: Chronic Assessment and plan: Blood Pressure is well controlled Qualifiers: Hypertension type: essential hypertension Qualified Code(s): I10 - Essential (primary) hypertension (6) Closed fracture of 5th metacarpal Current Visit: Yes Status: Acute Assessment and plan: Splint in place. We will consult orthopedics for recommendations. Qualifiers: Encounter type: initial encounter Metacarpal location: neck Fracture alignment: nondisplaced Laterality: right Qualified Code(s): S62.366A - Nondisplaced fracture of neck of fifth metacarpal bone, right hand, initial encounter for closed fracture (7) Acute on chronic renal failure Current Visit: Yes Status: Acute Assessment and plan: Improving. Creatinine 2.6 Today. Continue IV hydration Qualifiers: Acute renal failure type: unspecified Chronic kidney disease stage: stage 3 (moderate) Qualified Code(s): N17.9 - Acute kidney failure, unspecified; N18.3 - Chronic kidney disease, stage 3 (moderate); N18.3 - Chronic kidney disease, stage 3 (moderate) (8) DVT prophylaxis Current Visit: Yes Status: Acute Assessment and plan: On subcutaneous heparin (9) Morbid obesity with BMI of 40.0-44.9, adult Current Visit: Yes Status: Chronic - Time Spent With Patient Total time spent is greater than 50% in coordination of care (as documented) at patient's floor/unit and/or counseling patient: - Subjective Interval history: Patient denies any headache. No photophobia. No neck stiffness or rigidity. Does report diarrhea and nausea. No hematochezia. - Constitutional Vitals: Temp Pulse Resp BP Pulse Ox 99.7 F H 68 16 113/64 97 11/07/17 11:27 11/07/17 11:27 11/07/17 11:27 11/07/17 11:27 11/07/17 11:27 General appearance: Present: cooperative, mild distress, A&O X 3, no acute distress, answers questions appropriately - Neck Neck exam general surgery: Present: supple, trachea midline. Absent: lymphadenopathy - Respiratory Respiratory exam: Present: CTAB. Absent: accessory muscle use, rales, rhonchi, wheezes - Cardiovascular Cardiovascular exam: Present: RRR, +S1, +S2. Absent: diastolic murmur, gallop, rubs, systolic murmur - GI/Abdominal GI/Abdominal exam: Present: normal bowel sounds, soft, tenderness (Epigastric), no peritoneal signs. Absent: distended - Extremities Exam Extremities exam: Present: warm, radial pulses palpable and symmetrical. Absent : calf tenderness, cyanotic, pedal edema - Neurological Exam Neurological exam: Present: CN II-XII intact, oriented X3, no focal deficits. Absent: facial droop, speech deficit Internal Medicine: Result - Labs CBC & Chem 7: 11/07/17 04:08 11/07/17 04:08 Labs: Short CBC 11/07/17 Range/Units 04:08 WBC 14.6 H (4.3-11.1) K/mcL Hgb 9.9 L D (11.5-15.4) g/dL Hct 30.8 L (35.3-44.9) % Plt Count 241 (140-400) K/mcL Neutrophils # 12.3 H (1.6-8.9) K/mcL BMP 11/07/17 04:08 Sodium 135 L Potassium 3.8 Chloride 109 H Carbon Dioxide 18 L BUN 27 H Creatinine 2.69 H Glucose 134 H Calcium 7.7 L - ABG Interpretation ABG results: PT/INR, D-dimer PT 12.5 Seconds (9.4-12.1) H 11/06/17 19:38 Consult Discharge Plan - Plan Referrals: Aranza Ring [Primary Care Provider] -
[2017-11-07] MEDS: Sucralfate 1 GM TABLET PO SCH ×2 (17:07→20:10)
[2017-11-07] MEDS: *HR* Heparin 5,000 UNIT/ML VIAL SQ SCH (17:08)
[2017-11-07] MEDS: Gabapentin 300 MG CAPSULE PO SCH (19:56)
[2017-11-07] MEDS ORDERED: D5 IVPB SCH (21:00)
[2017-11-07] MEDS ORDERED: ACYCLOVIR IVPB SCH (21:00)
[2017-11-07] MEDS ORDERED: WATER IVPB SCH (21:00)
--- NOTE | 2017-11-08 00:16 | Event Note ---
Date of Encounter: 11/08/17 Time of Encounter: 22:03 Alerted by pts. nurse that patient was reporting headache as 10/10 and reporting throbbing of her left arm to her chest and rectum with dizziness. Nurse check blood glucose which was 141, heart rate 63 temp 90 8.2F, BP 148/78. Stat troponin ordered and we will trend. Stat EKG ordered which shows sinus rhythm. Due to intense headache rated 10/10, stat CT of the head/brain ordered. Initial troponin <0.03. Patient to be monitored closely and will await CT results.
[2017-11-08] MEDS ORDERED: *HR* OxyCODONE/APAP 5/325 TABLET PO ONE (04:03)
[2017-11-08] MEDS: cefTRIAXone 2,000 MG in Water for inj. (sterile) 20 ML 20 ML IVP SCH (04:21)
[2017-11-08] MEDS: *HR* Heparin 5,000 UNIT/ML VIAL SQ SCH ×2 (04:21→17:09)
[2017-11-08] MEDS: Ringers Solution, Lactated 1,000 ML IVC SCH (06:16)
[2017-11-08] MEDS: BuPROPion XL (24 HR) 150 MG TABLET PO SCH (08:02)
[2017-11-08] MEDS: Ascorbic Acid 500 MG TABLET PO SCH (08:02)
[2017-11-08] MEDS: Sucralfate 1 GM TABLET PO SCH ×4 (08:02→20:05)
[2017-11-08] MEDS: Cyanocobalamin (B-12) 1,000 MCG TABLET PO SCH (08:02)
[2017-11-08] MEDS: Renal Vitamin 1 MG CAPSULE PO SCH (08:02)
[2017-11-08] MEDS: Folic Acid 1 MG TABLET PO SCH (08:02)
[2017-11-08] MEDS: Cholecalciferol (D-3) 1,000 UNIT TABLET PO SCH (08:02)
[2017-11-08 08:42] LABS: Basophils # 0.1 K/mcL (0.0-0.2); Basophils % 0.5 %; Eosinophils # 0.1 K/mcL (0.0-0.6); Eosinophils % 0.6 %; Hematocrit 29.2 % (35.3-44.9); Hemoglobin 9.2 g/dL (11.5-15.4); Immature Granulocytes % 0.5 % (0-4); Lymphocytes # 1.3 K/mcL (0.6-4.6); Lymphocytes % 13.2 %; Mean Corpuscular HGB Conc 31.5 g/dL (31.6-35.5); Mean Corpuscular Hemoglobin 28.8 pg (28.0-33.3); Mean Corpuscular Volume 91.5 fL (83.0-100.0); Mean Platelet Volume 9.4 fL (9.4-12.4); Monocytes # 0.7 K/mcL (0.0-1.3); Monocytes % 6.7 %; Platelet Count 231 K/mcL (140-400); Red Blood Count 3.19 M/mcL (3.82-4.97); Red Cell Distribution Width 13.2 % (11.5-14.5); Segmented Neutrophils % 78.5 %
[2017-11-08 08:50] LABS: Potassium 3.6 mEq/L (3.5-5.1)
--- NOTE | 2017-11-08 10:21 | Infectious Disease Progress No ---
Date of Encounter: 11/08/17 Time of Encounter: 10:19 - Assessment and Plan (1) Sepsis Current Visit: Yes Status: Acute Temp 101.6, tachycardia, tachypnea, leukocytosis lactic acid was 0.9, 0.6 source of infection likely secondary to gastroenteritis. CT of the abdomen pelvis showed right, descending and proximal sigmoid colon is , likely infectious. Chest x-ray showed no acute process CT showed no acute abnormality urinalysis unremarkable lumbar puncture was done in the ED, Gram stain was negative, CSF WNL stool panel positive for salmonella. Creatinine clearance: 29 based on ideal body weight. patient received one dose acyclovir, one dose vancomycin, 2 doses rocephin empirically as treatment for meningitis. plan: final CSF culture pending blood cultures x2 pending-prelim negative HSV PCR pending cipro day 2- duration of treatment will depend on blood cultures. changed dosing to q12H Qualifiers: Sepsis type: Salmonella Qualified Code(s): A02.1 - Salmonella sepsis (2) Salmonella enteritis Current Visit: Yes Status: Acute Plan as above (3) Acute on chronic renal failure Current Visit: Yes Status: Acute baseline Cr about 1.8 etiology likely secondary to dehydration, diarrhea management per primary service. Qualifiers: Acute renal failure type: unspecified Chronic kidney disease stage: stage 3 (moderate) Qualified Code(s): N17.9 - Acute kidney failure, unspecified; N18.3 - Chronic kidney disease, stage 3 (moderate); N18.3 - Chronic kidney disease, stage 3 (moderate) (4) Colitis Current Visit: Yes Status: Acute plan as #1 above (5) Encephalopathy Current Visit: Yes Status: Resolved Likely secondary to sepsis. Currently resolved. Continue to monitor. (6) Hypertension Current Visit: Yes Status: Chronic Management per primary service Qualifiers: Hypertension type: essential hypertension Qualified Code(s): I10 - Essential (primary) hypertension (7) Closed fracture of 5th metacarpal Current Visit: Yes Status: Acute Splint placed in the ER orthopedic surgery consulted Qualifiers: Encounter type: initial encounter Metacarpal location: neck Fracture alignment: nondisplaced Laterality: right Qualified Code(s): S62.366A - Nondisplaced fracture of neck of fifth metacarpal bone, right hand, initial encounter for closed fracture - Subjective Interval history: 61-year-old female evaluated at bedside. She admits to nausea without vomiting , denies fevers, chills, chest pain, shortness of breath. She has continues to have abdominal pain diffusely. She denies any new problems today Infect Dis PN-Objective Data - Labs CBC & Chem 7: 11/09/17 06:25 11/09/17 06:25 Labs: Laboratory Results - last 24 hr 11/07/17 11/07/17 11/07/17 10:20 21:55 22:22 WBC RBC Hgb Hct MCV MCH MCHC RDW Plt Count MPV Immature Gran % Seg Neutrophils % Lymphocytes % Monocytes % Eosinophils % Basophils % Neutrophils # Lymphocytes # Monocytes # Eosinophils # Basophils # Sodium Potassium Chloride Carbon Dioxide BUN Creatinine Est GFR ( Amer) Est GFR (Non-Af Amer) BUN/Creatinine Ratio Glucose POC Glucose 141 H Calculated Osmolality Calcium Troponin I < 0.03 Random Vancomycin 18 11/08/17 11/08/17 11/08/17 03:59 07:34 07:34 WBC 10.2 RBC 3.19 L Hgb 9.2 L Hct 29.2 L MCV 91.5 MCH 28.8 MCHC 31.5 L RDW 13.2 Plt Count 231 MPV 9.4 Immature Gran % 0.5 Seg Neutrophils % 78.5 Lymphocytes % 13.2 Monocytes % 6.7 Eosinophils % 0.6 Basophils % 0.5 Neutrophils # 8.0 Lymphocytes # 1.3 Monocytes # 0.7 Eosinophils # 0.1 Basophils # 0.1 Sodium 136 Potassium 3.6 Chloride 107 Carbon Dioxide 21 L BUN 23 Creatinine 2.50 H Est GFR ( Amer) 24 L Est GFR (Non-Af Amer) 20 L BUN/Creatinine Ratio 9 Glucose 114 H POC Glucose Calculated Osmolality 287 Calcium 8.0 L Troponin I < 0.03 Random Vancomycin Cultures: Cultures 11/07/17 02:17 Stool Culture - Preliminary Stool Salmonella species Serology 11/07/17 Range/Units 02:17 Stl C. cayetanensis PCR Not detected (Not detect) Stool Rotavirus A PCR Not detected (Not detect) Stl Adenov F 40/41 PCR Not detected (Not detect) Stool Astrovirus (PCR) Not detected (Not detect) Stool Campylobacter PCR Not detected (Not detect) Stl C. diff Tox A/B PCR Not detected (Not detect) Stool Cryptosporidium PCR Not detected (Not detect) Stl Sh Tox Pr E STEC PCR Not detected (Not detect) Stool E coli O157 PCR Not detected (Not detect) Stl Enterotoxigenic E PCR Not detected (Not detect) Stool EPEC (PCR) Not detected (Not detect) Stool EAEC (PCR) Not detected (Not detect) Stl E. histolytica PCR Not detected (Not detect) Stool Giardia Lamblia PCR Not detected (Not detect) Stool Salmonella PCR DETECTED A* (Not detect) Stool Sapovirus (PCR) Not detected (Not detect) Stl P. shigelloides PCR Not detected (Not detect) Stl Shigella/EIEC PCR Not detected (Not detect) St Y.enterocolitica PCR Not detected (Not detect) Stool Vibrio (PCR) Not detected (Not detect) Stl Vibrio cholerae PCR Not detected (Not detect) Stl Norovirus GI/GII PCR Not detected (Not detect) Stl GI Panel (PCR) Com See below - Impressions Impressions Head CT 11/07/17 23:21 IMPRESSION: No acute intracranial abnormality. D/ / Yvon Rodriguez / Yvno Rodriguez Interpreting Provider: Yvon Rodriguez Exam - Constitutional Vitals: Temp Pulse Resp BP Pulse Ox 98.1 F 60 18 113/65 97 11/08/17 07:43 11/08/17 07:43 11/08/17 07:43 11/08/17 07:43 11/08/17 07:43 General appearance: mild distress, morbidly obese - Head Head exam: Present: atraumatic, normocephalic - Respiratory Respiratory exam: Present: CTAB - Cardiovascular Cardiovascular exam: Present: RRR, +S1, +S2 - GI/Abdominal GI/Abdominal exam: Present: distended, normal bowel sounds, soft Additional comments: Diffuse tenderness to palpation in all quadrants. - Extremities Exam Extremities exam: Present: tenderness. Absent: pedal edema - Neurological Exam Neurological exam: Present: alert, oriented X3 - Psychiatric Psychiatric exam: Present: normal affect, normal mood - VTE Documentation of Mechanical Device: Intermittent pneumatic compression device Consult Discharge Plan - Plan Referrals: Aranza Ring [Primary Care Provider] - Adiel Mclean MD [Partnered Physician] - 11/16/17 10:50 am Amrit Randle MD [Partnered Physician] - 01/16/18 3:00 pm - Attending Attestation I examined this patient and my medical decision-making was reviewed with the Resident Physician. I agree with the documented findings, disposition and treatment plan as described except to the extent set forth below. Clinically patient is doing much better. Her diarrhea has improved significantly. Cultures from the stool or grown some minimal species. Spoke with microbiology and they will send her to [facility] for speciation. In the meantime continue ciprofloxacin. Duration of treatment depends on the clinical picture. Creatinine has improved so we will increase the dose to every 12 hours.
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
--- NOTE | 2017-11-08 16:42 | Internal Med Progress Note ---
Date of Encounter: 11/08/17 Time of Encounter: 11:45 - Assessment and plan (1) Sepsis Current Visit: Yes Status: Acute Assessment and plan: Continue Cipro. Blood cultures remain negative. WBC count is normal today. Patient remained symptomatic. We will continue current management in the hospital. Qualifiers: Sepsis type: Salmonella Qualified Code(s): A02.1 - Salmonella sepsis (2) Colitis Current Visit: Yes Status: Acute Assessment and plan: Continue treating for salmonella enteritis/colitis with Cipro. 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 Qualifiers: Ellington's esophagus type: with dysplasia of unspecified degree Qualified Code(s): K22.719 - Ellington's esophagus with dysplasia, unspecified; K22.71 - Ellington's esophagus with dysplasia (5) Hypertension Current Visit: Yes Status: Chronic Assessment and plan: Blood pressure slightly elevated. We will start patient back on lisinopril. Stop hydrochlorothiazide Qualifiers: Hypertension type: essential hypertension Qualified Code(s): I10 - Essential (primary) hypertension (6) Closed fracture of 5th metacarpal Current Visit: Yes Status: Acute Assessment and plan: Consulted orthopedics. Recommend outpatient follow-up in 1 week. Qualifiers: Encounter type: initial encounter Metacarpal location: neck Fracture alignment: nondisplaced Laterality: right Qualified Code(s): S62.366A - Nondisplaced fracture of neck of fifth metacarpal bone, right hand, initial encounter for closed fracture (7) Acute on chronic renal failure Current Visit: Yes Status: Acute Assessment and plan: Renal function continues to improve. Baseline appears to be between 1.8 and 2.4. Qualifiers: Acute renal failure type: unspecified Chronic kidney disease stage: stage 3 (moderate) Qualified Code(s): N17.9 - Acute kidney failure, unspecified; N18.3 - Chronic kidney disease, stage 3 (moderate); N18.3 - Chronic kidney disease, stage 3 (moderate) (8) DVT prophylaxis Current Visit: Yes Status: Acute Assessment and plan: With subcutaneous heparin (9) Morbid obesity with BMI of 40.0-44.9, adult Current Visit: Yes Status: Chronic - Time Spent With Patient Total time spent is greater than 50% in coordination of care (as documented) at patient's floor/unit and/or counseling patient: - Subjective Interval history: Patient continues to have abdominal pain and diarrhea. Does have nausea. Tolerating diet well so far. No fever or chills reported overnight. No dizziness headache or photophobia. - Constitutional Vitals: Temp Pulse Resp BP Pulse Ox 98.4 F 61 18 139/75 99 11/08/17 16:36 11/08/17 16:36 11/08/17 16:36 11/08/17 16:36 11/08/17 16:36 General appearance: Present: cooperative, mild distress, A&O X 3, no acute distress, answers questions appropriately - Neck Neck exam general surgery: Present: supple, trachea midline. Absent: lymphadenopathy - Respiratory Respiratory exam: Present: CTAB. Absent: accessory muscle use, rales, rhonchi, wheezes - Cardiovascular Cardiovascular exam: Present: RRR, +S1, +S2. Absent: diastolic murmur, gallop, rubs, systolic murmur - GI/Abdominal GI/Abdominal exam: Present: normal bowel sounds, soft, tenderness (Lower abdominal), no peritoneal signs. Absent: distended - Extremities Exam Extremities exam: Present: warm, radial pulses palpable and symmetrical. Absent : calf tenderness, cyanotic, pedal edema - Neurological Exam Neurological exam: Present: alert, oriented X3, no focal deficits. Absent: facial droop, speech deficit - Skin Skin exam: Present: dry, intact Internal Medicine: Result - Labs CBC & Chem 7: 11/08/17 07:34 11/08/17 07:34 Labs: Short CBC 11/08/17 Range/Units 07:34 WBC 10.2 (4.3-11.1) K/mcL Hgb 9.2 L (11.5-15.4) g/dL Hct 29.2 L (35.3-44.9) % Plt Count 231 (140-400) K/mcL Neutrophils # 8.0 (1.6-8.9) K/mcL BMP 11/08/17 07:34 Sodium 136 Potassium 3.6 Chloride 107 Carbon Dioxide 21 L BUN 23 Creatinine 2.50 H Glucose 114 H Calcium 8.0 L Cardiac Enzymes 11/07/17 11/08/17 Range/Units 22:22 03:59 Troponin I < 0.03 < 0.03 (< 0.04) ng/mL - ABG Interpretation ABG results: PT/INR, D-dimer PT 12.5 Seconds (9.4-12.1) H 11/06/17 19:38 - Impressions Impressions Head CT 11/07/17 23:21 IMPRESSION: No acute intracranial abnormality. D/ / Yvon Rodriguez / Yvon Rodriguez Interpreting Provider: Yvon Rodriguez - VTE Documentation of Mechanical Device: Intermittent pneumatic compression device Consult Discharge Plan - Plan Referrals: Aranza Ring [Primary Care Provider] -
[2017-11-08] MEDS: Gabapentin 300 MG CAPSULE PO SCH (20:05)
[2017-11-08] MEDS: Lactobacillus 1 EACH CAP.SPRINK PO SCH (20:05)
[2017-11-09 06:45] LABS: Basophils # 0.1 K/mcL (0.0-0.2); Basophils % 0.6 %; Eosinophils # 0.2 K/mcL (0.0-0.6); Eosinophils % 2.6 %; Hematocrit 27.7 % (35.3-44.9); Hemoglobin 8.8 g/dL (11.5-15.4); Immature Granulocytes % 0.6 % (0-4); Lymphocytes # 1.3 K/mcL (0.6-4.6); Lymphocytes % 16.8 %; Mean Corpuscular HGB Conc 31.8 g/dL (31.6-35.5); Mean Corpuscular Hemoglobin 28.9 pg (28.0-33.3); Mean Corpuscular Volume 91.1 fL (83.0-100.0); Mean Platelet Volume 9.3 fL (9.4-12.4); Monocytes # 0.9 K/mcL (0.0-1.3); Monocytes % 11.3 %; Neutrophils # 5.4 K/mcL (1.6-8.9); Platelet Count 226 K/mcL (140-400); Red Blood Count 3.04 M/mcL (3.82-4.97); Red Cell Distribution Width 13.2 % (11.5-14.5); Segmented Neutrophils % 68.1 %
[2017-11-09 07:23] LABS: Calcium 8.3 mg/dL (8.6-10.3); Potassium 3.4 mEq/L (3.5-5.1)
--- NOTE | 2017-11-09 10:12 | Infectious Disease Progress No ---
Date of Encounter: 11/09/17 Time of Encounter: 10:09 - Assessment and Plan (1) Sepsis Current Visit: Yes Status: Acute The patient had four SIRS criteria. Likely secondary to Salmonella gastroenteritis. Improved. Tachycardia, tachypnea, and leukocytosis has resolved. The patient has been afebrile. Blood cultures drawn 11/06/17 are NGTD x 2 sets. Qualifiers: Sepsis type: Salmonella Qualified Code(s): A02.1 - Salmonella sepsis (2) Salmonella enteritis Current Visit: Yes Status: Acute Causative organism: Salmonella per stool panel and stool culture. Source unclear. Clinically improved. Continue Cipro 500mg PO BID. Duration of treatment depends on the clinical picture, but recommend a total of 14 days. Treat through 11/20/17. Monitor renal function and dose-adjust antibiotics. Follow up with ID 11/16/17 at 1440. (3) Colitis Current Visit: Yes Status: Acute CT scan showed right, descending and proximal sigmoid colitis. Likely secondary to Salmonella. Clinically improved. Continue Cipro as above. (4) Encephalopathy Current Visit: Yes Status: Resolved Likely secondary to sepsis. Status post LP --> no pleocytosis. CSF culture negative. HSV PCR pending, but low index of suspicion for viral meningitis. CT head negative. Appears resolved. Continue to monitor closely. (5) Acute on chronic renal failure Current Visit: Yes Status: Acute Likely multifactorial: sepsis and dehydration. Serum creatinine stable. Continue to trend. Strict I's and O's. Dose-adjust antibiotics. Avoid nephrotoxins as able. Qualifiers: Acute renal failure type: unspecified Chronic kidney disease stage: stage 3 (moderate) Qualified Code(s): N17.9 - Acute kidney failure, unspecified; N18.3 - Chronic kidney disease, stage 3 (moderate); N18.3 - Chronic kidney disease, stage 3 (moderate) (6) Closed fracture of 5th metacarpal Current Visit: Yes Status: Acute Secondary to trauma. Ortho consulted and following. Qualifiers: Encounter type: initial encounter Metacarpal location: neck Fracture alignment: nondisplaced Laterality: right Qualified Code(s): S62.366A - Nondisplaced fracture of neck of fifth metacarpal bone, right hand, initial encounter for closed fracture (7) Anemia Current Visit: No Status: Chronic Hgb down to 8.8 this morning. ? Hemodilution + CKD. Etiology unclear. No acute bleeding noted on exam. Further workup and management per the primary team. Qualifiers: Anemia type: unspecified type Qualified Code(s): D64.9 - Anemia, unspecified (8) Morbid obesity with BMI of 40.0-44.9, adult Current Visit: Yes Status: Chronic - Subjective Interval history: Patient is seen in agreement. No acute events noted overnight. Patient resting quietly in bed. States overall she feels better today. Denies any fevers or chills or rigors. Denies any chest pain or shortness of breath. Reports a nonproductive cough. Denies any vomiting or diarrhea this morning. States she was a little nauseous, but was able to eat a little bit of breakfast. States she is not having any abdominal pain. States she has not had any diarrhea this morning and had 5 loose stools yesterday. Denies any urinary complaints. States she would like to get out of bed and walk around the room and see how she feels this morning. Denies any oral thrush or any skin lesions. Infect Dis PN-Objective Data - Labs CBC & Chem 7: 11/09/17 06:25 11/09/17 06:25 Labs: Laboratory Results - last 24 hr 11/09/17 11/09/17 06:25 06:25 WBC 7.9 RBC 3.04 L Hgb 8.8 L Hct 27.7 L MCV 91.1 MCH 28.9 MCHC 31.8 RDW 13.2 Plt Count 226 MPV 9.3 L Immature Gran % 0.6 Seg Neutrophils % 68.1 Lymphocytes % 16.8 Monocytes % 11.3 Eosinophils % 2.6 Basophils % 0.6 Neutrophils # 5.4 Lymphocytes # 1.3 Monocytes # 0.9 Eosinophils # 0.2 Basophils # 0.1 Sodium 140 Potassium 3.4 L Chloride 111 H Carbon Dioxide 22 L BUN 20 Creatinine 2.41 H Est GFR ( Amer) 25 L Est GFR (Non-Af Amer) 20 L BUN/Creatinine Ratio 8 Glucose 113 H Calculated Osmolality 293 Calcium 8.3 L Cultures: Cultures 11/07/17 02:17 Stool Culture - Preliminary Stool Salmonella species Serology 11/07/17 Range/Units 02:17 Stl C. cayetanensis PCR Not detected (Not detect) Stool Rotavirus A PCR Not detected (Not detect) Stl Adenov F 40/41 PCR Not detected (Not detect) Stool Astrovirus (PCR) Not detected (Not detect) Stool Campylobacter PCR Not detected (Not detect) Stl C. diff Tox A/B PCR Not detected (Not detect) Stool Cryptosporidium PCR Not detected (Not detect) Stl Sh Tox Pr E STEC PCR Not detected (Not detect) Stool E coli O157 PCR Not detected (Not detect) Stl Enterotoxigenic E PCR Not detected (Not detect) Stool EPEC (PCR) Not detected (Not detect) Stool EAEC (PCR) Not detected (Not detect) Stl E. histolytica PCR Not detected (Not detect) Stool Giardia Lamblia PCR Not detected (Not detect) Stool Salmonella PCR DETECTED A* (Not detect) Stool Sapovirus (PCR) Not detected (Not detect) Stl P. shigelloides PCR Not detected (Not detect) Stl Shigella/EIEC PCR Not detected (Not detect) St Y.enterocolitica PCR Not detected (Not detect) Stool Vibrio (PCR) Not detected (Not detect) Stl Vibrio cholerae PCR Not detected (Not detect) Stl Norovirus GI/GII PCR Not detected (Not detect) Stl GI Panel (PCR) Com See below Exam - Constitutional Vitals: Temp Pulse Resp BP Pulse Ox 98.0 F 71 17 135/81 97 11/09/17 07:54 11/09/17 07:54 11/09/17 07:54 11/09/17 07:54 11/09/17 07:54 General appearance: cooperative, no acute distress, obese - Head Head exam: Present: atraumatic, normal inspection, normocephalic - Eye Eye exam: Present: EOMI, normal appearance, PERRL Pupils: Present: normal accommodation - ENT ENT exam: Present: mucous membranes moist - Neck Neck exam: Present: normal inspection - Respiratory Respiratory exam: Present: CTAB. Absent: rales, respiratory distress, rhonchi, wheezes - Cardiovascular Cardiovascular exam: Present: RRR, +S1, +S2 - GI/Abdominal GI/Abdominal exam: Present: distended (Obese), normal bowel sounds, soft, tenderness (Periumbilical) - Extremities Exam Extremities exam: Present: normal inspection. Absent: joint swelling, pedal edema, tenderness - Neurological Exam Neurological exam: Present: alert, oriented X3, no focal deficits - Psychiatric Psychiatric exam: Present: normal affect, normal mood - Skin Skin exam: Present: dry, intact, normal color, warm - VTE Documentation of Mechanical Device: Intermittent pneumatic compression device Consult Discharge Plan - Plan Referrals: Aranza Ring [Primary Care Provider] - Adiel Mclean MD [Partnered Physician] - 11/16/17 10:50 am Amrit Randle MD [Partnered Physician] - 01/16/18 3:00 pm Ad Mendoza MD [Partnered Physician] - 11/16/17 2:40 pm - Attending Attestation I examined this patient and my medical decision-making was reviewed with the Resident Physician. I agree with the documented findings, disposition and treatment plan as described except to the extent set forth below. continue cipro follow up with us in clinic in 2 weeks follow up with [facility] on salmonella spp
[2017-11-09] MEDS: *HR* Heparin 5,000 UNIT/ML VIAL SQ SCH ×2 (11:16→17:22)
[2017-11-09] MEDS: Sucralfate 1 GM TABLET PO SCH ×4 (11:17→20:52)
[2017-11-09] MEDS: Renal Vitamin 1 MG CAPSULE PO SCH (11:34)
[2017-11-09] MEDS: Lisinopril 20 MG TABLET PO SCH (11:34)
[2017-11-09] MEDS: Cholecalciferol (D-3) 1,000 UNIT TABLET PO SCH (11:34)
[2017-11-09] MEDS: Cyanocobalamin (B-12) 1,000 MCG TABLET PO SCH (11:34)
[2017-11-09] MEDS: BuPROPion XL (24 HR) 150 MG TABLET PO SCH (11:34)
[2017-11-09] MEDS: Lactobacillus 1 EACH CAP.SPRINK PO SCH ×2 (11:34→20:51)
[2017-11-09] MEDS: Folic Acid 1 MG TABLET PO SCH (11:35)
[2017-11-09] MEDS: Ascorbic Acid 500 MG TABLET PO SCH (11:35)
--- NOTE | 2017-11-09 13:01 | Discharge Summary ---
- NOTES TO OUTPATIENT PROVIDER Notes to Outpatient Provider: Patient admitted with sepsis from salmonella enteritis/colitis. Responded well to ciprofloxacin. Patient will complete 14 day treatment course. Date of Encounter: 11/09/17 Time of Encounter: 12:59 - Discharge Diagnosis (1) Sepsis Priority: Primary Status: Acute Qualifiers: Sepsis type: Salmonella Qualified Code(s): A02.1 - Salmonella sepsis (2) Colitis Priority: Secondary Status: Acute (3) Encephalopathy Priority: Secondary Status: Resolved (4) Ellington esophagus Priority: Secondary Status: Chronic Qualifiers: Ellington's esophagus type: with dysplasia of unspecified degree Qualified Code(s): K22.719 - Ellington's esophagus with dysplasia, unspecified; K22.71 - Ellington's esophagus with dysplasia (5) Hypertension Priority: Secondary Status: Chronic Qualifiers: Hypertension type: essential hypertension Qualified Code(s): I10 - Essential (primary) hypertension (6) Closed fracture of 5th metacarpal Priority: Secondary Status: Acute Qualifiers: Encounter type: initial encounter Metacarpal location: neck Fracture alignment: nondisplaced Laterality: right Qualified Code(s): S62.366A - Nondisplaced fracture of neck of fifth metacarpal bone, right hand, initial encounter for closed fracture (7) Acute on chronic renal failure Priority: Secondary Status: Resolved Qualifiers: Acute renal failure type: unspecified Chronic kidney disease stage: stage 3 (moderate) Qualified Code(s): N17.9 - Acute kidney failure, unspecified; N18.3 - Chronic kidney disease, stage 3 (moderate); N18.3 - Chronic kidney disease, stage 3 (moderate) (8) DVT prophylaxis Priority: Secondary Status: Acute (9) Morbid obesity with BMI of 40.0-44.9, adult Priority: Secondary Status: Chronic Hospital course: Ms. Deleon is a 61 year old female patient with a history of chronic kidney disease stage III, hypertension, asthma, gastroesophageal reflux disease/hiatal hernia status post Conchis's fundoplication, Chronic abdominal pain and diarrhea presented to the ER with complaints of headache dizziness nausea or vomiting and diarrhea. She had a fever with temperature of 101.3 on presentation. She was also disoriented and had some mild hallucinations on presentation. She was suspected of having sepsis from possible meningitis. As such she underwent lumbar puncture in the ER and was started on broad-spectrum antibiotics for this. However overnight her stools were positive for salmonella. Infectious disease and neurology evaluated the patient and concluded that the patient did not have any signs or symptoms of meningitis. Her mental status quickly improved. Her blood cultures have remained negative. She did respond well to antibiotics. Her diarrhea has also improved. She is now tolerating diet well. She will be discharged tomorrow if she continues to keep her food down and remains pain-free. She will complete 14 day treatment course with ciprofloxacin for salmonella enteritis/colitis. She was also diagnosed with fracture of her right fifth metacarpal head/neck junction in her right forearm and hand have been placed in splint. She was evaluated by orthopedics and recommended follow-up in 1 week. Discharge discussed with: patient, nurse - Time Spent with Patient Total time spent providing and/or coordinating discharge services: Less than 30 minutes (25 min) - Discharge Medications Prescriptions: Ciprofloxacin [Cipro] 500 mg PO Q12H #22 tablet Lactobacillus [Culturelle] 1 each PO BID #30 cap.sprink Lisinopril [Zestril] 20 mg PO DAILY #30 tablet Sucralfate [Carafate] 1 gm PO QIDAC #120 tablet Home Medications: Albuterol Sulfate [Ventolin Hfa] 2 puff IH Q4-6H PRN 01/20/17 [History] Ascorbic Acid [Vitamin C] 500 mg PO DAILY 01/20/17 [History] Bupropion HCl [Wellbutrin Xl] 300 mg PO DAILY 01/20/17 [History] Calcitriol 0.25 mcg PO DAILY 01/20/17 [History] Cholecalciferol (Vitamin D3) [Vitamin D3] 5,000 unit PO DAILY 01/20/17 [History] Cyanocobalamin (Vitamin B-12) [Vitamin B12] 1,000 mcg PO DAILY 01/20/17 [History ] Folic Acid 1 mg PO DAILY 01/20/17 [History] Gabapentin [Neurontin] 600 mg PO HS 03/16/17 [History] Pantoprazole Sodium 40 mg PO DAILY 03/16/17 [History] Trazodone HCl 100 mg PO HS 04/22/17 [History] Iron Ag,Ps/C/Fa6/B12/Zn/SA/Sto [Niferex Tablet] 1 each PO DAILY 11/06/17 [ History] Sertraline [Zoloft] 100 mg PO DAILY 11/06/17 [History] Mometasone/Formoterol [Dulera 200 Mcg/5 Mcg Inhaler] 2 puff IH BID 11/07/17 [ History] Ciprofloxacin [Cipro] 500 mg PO Q12H #22 tablet 11/09/17 [Rx] Lactobacillus [Culturelle] 1 each PO BID #30 cap.sprink 11/09/17 [Rx] Lisinopril [Zestril] 20 mg PO DAILY #30 tablet 11/09/17 [Rx] Sucralfate [Carafate] 1 gm PO QIDAC #120 tablet 11/09/17 [Rx] Allergies/Adverse Reactions: 3 Allergy/AdvReac Type Severity Reaction Status Date / Time codeine AdvReac Nausea Verified 09/29/17 09:44 morphine AdvReac Nausea Verified 09/29/17 09:44 Penicillins [PCN] AdvReac Rash Verified 09/29/17 09:44 Sulfa (Sulfonamide AdvReac Rash Verified 09/29/17 09:44 Antibiotics) Date of admission: 11/06/17 23:42 Primary care physician: Aranza Ring Consults: 11/07/17 06:53 Consult to Gastroenterology [CONS] Routine Consulting Provider: Gastroenterology Shirin Reason for Consult: Abd pain, n/v and diarrhea, colitis Call Completed: No 11/07/17 07:16 Consult to Infectious Diseases [CONS] Routine Consulting Provider: Infectious Disease Shirin Reason for Consult: Sepsis, suspected meningitis Call Completed: No 11/08/17 07:43 Consult to Orthopedic Surgery [CONS] Routine Consulting Provider: Orthopedics [facility] Reason for Consult: Right 5th metAcarpal fracture Time Notified: 07:44 Call Completed: Yes Discharging clinician: Andreas Panda Anticipated date of discharge: 11/10/17 - Constitutional Vitals: Temp Pulse Resp BP Pulse Ox 98.1 F 55 17 130/80 96 11/09/17 11:26 11/09/17 11:26 11/09/17 11:26 11/09/17 11:26 11/09/17 11:26 General appearance: Present: cooperative, mild distress, A&O X 3, no acute distress, answers questions appropriately - Neck Neck exam general surgery: Present: supple, trachea midline. Absent: lymphadenopathy - Respiratory Respiratory exam: Present: CTAB. Absent: accessory muscle use, rales, rhonchi, wheezes - Cardiovascular Cardiovascular exam: Present: RRR, +S1, +S2. Absent: diastolic murmur, gallop, rubs, systolic murmur - GI/Abdominal GI/Abdominal exam: Present: normal bowel sounds, soft, no peritoneal signs. Absent: distended, tenderness - Extremities Exam Extremities exam: Present: tenderness (right forearm and wrist in split), warm, radial pulses palpable and symmetrical. Absent: calf tenderness, cyanotic, pedal edema - Neurological Exam Neurological exam: Present: alert, oriented X3, no focal deficits. Absent: facial droop, speech deficit - Skin Skin exam: Present: dry, intact - Patient Status Disposition: Home, Self-Care Condition: Good Functional capacity at discharge: independent ambulation Overall status at discharge: patient is progressing back to baseline - Discharge Instructions Instructions: Sepsis (DC) Follow Up With: Aranza Ring [Primary Care Provider] - 11/29/17 1:30 pm Adiel Mclean MD [Partnered Physician] - 11/16/17 10:50 am Amrit Randle MD [Partnered Physician] - 01/16/18 3:00 pm Ad Mendoza MD [Partnered Physician] - 11/16/17 2:40 pm Forms: ED Satisfaction Letter - Diet and Activity Activity: increase activity as tolerated Diet: low fat, low cholesterol, low salt diet - VTE Documentation of Mechanical Device: Intermittent pneumatic compression device
[2017-11-09 13:22] LABS: HSV Source CSF
[2017-11-09] MEDS: Gabapentin 300 MG CAPSULE PO SCH (20:51)
[2017-11-10] MEDS: Acetaminophen 325 MG TABLET PO PRN (00:46)
[2017-11-10] MEDS: Sucralfate 1 GM TABLET PO SCH ×2 (06:06→10:31)
[2017-11-10] MEDS: *HR* Heparin 5,000 UNIT/ML VIAL SQ SCH (06:07)
--- NOTE | 2017-11-10 09:37 | Infectious Disease Progress No ---
Date of Encounter: 11/10/17 Time of Encounter: 08:45 - Assessment and Plan (1) Sepsis Current Visit: Yes Status: Resolved The patient had four SIRS criteria. Likely secondary to Salmonella gastroenteritis. Improved. Tachycardia, tachypnea, and leukocytosis has resolved. The patient has been afebrile. Blood cultures drawn 11/06/17 are NGTD x 2 sets. Qualifiers: Sepsis type: Salmonella Qualified Code(s): A02.1 - Salmonella sepsis (2) Salmonella enteritis Current Visit: Yes Status: Acute Causative organism: Salmonella per stool panel and stool culture. Source unclear. Clinically improved. Continue Cipro 500mg PO BID. Duration of treatment depends on the clinical picture, but recommend a total of 14 days. Treat through 11/20/17. Monitor renal function and dose-adjust antibiotics. Follow up with ID 11/16/17 at 1440. (3) Colitis Current Visit: Yes Status: Acute CT scan showed right, descending and proximal sigmoid colitis. Likely secondary to Salmonella. Clinically improved. Continue Cipro as above. (4) Encephalopathy Current Visit: Yes Status: Resolved Likely secondary to sepsis. Status post LP --> no pleocytosis. CSF culture negative. HSV PCR negative. CT head negative. Appears resolved. Continue to monitor closely. (5) Acute on chronic renal failure Current Visit: Yes Status: Resolved Likely multifactorial: sepsis and dehydration. Serum creatinine stable. Continue to trend. Strict I's and O's. Dose-adjust antibiotics. Avoid nephrotoxins as able. Qualifiers: Acute renal failure type: unspecified Chronic kidney disease stage: stage 3 (moderate) Qualified Code(s): N17.9 - Acute kidney failure, unspecified; N18.3 - Chronic kidney disease, stage 3 (moderate); N18.3 - Chronic kidney disease, stage 3 (moderate) (6) Closed fracture of 5th metacarpal Current Visit: Yes Status: Acute Secondary to trauma. Ortho consulted and following. Qualifiers: Encounter type: initial encounter Metacarpal location: neck Fracture alignment: nondisplaced Laterality: right Qualified Code(s): S62.366A - Nondisplaced fracture of neck of fifth metacarpal bone, right hand, initial encounter for closed fracture (7) Anemia Current Visit: No Status: Chronic Hgb down to 8.8: ? Hemodilution + CKD. Etiology unclear. No acute bleeding noted on exam. Further workup and management per the primary team. Qualifiers: Anemia type: unspecified type Qualified Code(s): D64.9 - Anemia, unspecified (8) Morbid obesity with BMI of 40.0-44.9, adult Current Visit: Yes Status: Chronic - Subjective Interval history: Patient is seen and examined. No acute events noted overnight. Patient resting quietly in bed. States overall she feels better today and is ready to go home. Denies any fevers or chills or rigors. Denies any chest pain or shortness of breath. Reports a nonproductive cough. Denies any vomiting or diarrhea this morning. Denies nausea and states she was able to eat breakfast without a problem. States she is not having any abdominal pain, but feels gassy and bloated. States she has not had any diarrhea this morning and had 4 loose stools yesterday. Denies any urinary complaints. Denies any oral thrush or any skin lesions. Infect Dis PN-Objective Data - Labs CBC & Chem 7: 11/09/17 06:25 11/09/17 06:25 Cultures: Cultures 11/07/17 02:17 Stool Culture - Preliminary Stool Salmonella species Serology 11/07/17 Range/Units 02:17 Stl C. cayetanensis PCR Not detected (Not detect) Stool Rotavirus A PCR Not detected (Not detect) Stl Adenov F 40/41 PCR Not detected (Not detect) Stool Astrovirus (PCR) Not detected (Not detect) Stool Campylobacter PCR Not detected (Not detect) Stl C. diff Tox A/B PCR Not detected (Not detect) Stool Cryptosporidium PCR Not detected (Not detect) Stl Sh Tox Pr E STEC PCR Not detected (Not detect) Stool E coli O157 PCR Not detected (Not detect) Stl Enterotoxigenic E PCR Not detected (Not detect) Stool EPEC (PCR) Not detected (Not detect) Stool EAEC (PCR) Not detected (Not detect) Stl E. histolytica PCR Not detected (Not detect) Stool Giardia Lamblia PCR Not detected (Not detect) Stool Salmonella PCR DETECTED A* (Not detect) Stool Sapovirus (PCR) Not detected (Not detect) Stl P. shigelloides PCR Not detected (Not detect) Stl Shigella/EIEC PCR Not detected (Not detect) St Y.enterocolitica PCR Not detected (Not detect) Stool Vibrio (PCR) Not detected (Not detect) Stl Vibrio cholerae PCR Not detected (Not detect) Stl Norovirus GI/GII PCR Not detected (Not detect) Stl GI Panel (PCR) Com See below Exam - Constitutional Vitals: Temp Pulse Resp BP Pulse Ox 98.0 F 64 17 128/83 98 11/10/17 07:38 11/10/17 07:38 11/10/17 07:38 11/10/17 07:38 11/10/17 07:38 General appearance: cooperative, no acute distress, obese - Head Head exam: Present: atraumatic, normal inspection, normocephalic - Eye Eye exam: Present: EOMI, normal appearance, PERRL Pupils: Present: normal accommodation - ENT ENT exam: Present: mucous membranes moist - Neck Neck exam: Present: normal inspection - Respiratory Respiratory exam: Present: CTAB. Absent: rales, respiratory distress, rhonchi, wheezes - Cardiovascular Cardiovascular exam: Present: RRR, +S1, +S2 - GI/Abdominal GI/Abdominal exam: Present: distended (obese), normal bowel sounds, soft. Absent: tenderness - Extremities Exam Extremities exam: Present: normal inspection. Absent: joint swelling, pedal edema, tenderness Additional comments: Right hand splint C/D/I. - Neurological Exam Neurological exam: Present: alert, oriented X3, no focal deficits - Psychiatric Psychiatric exam: Present: normal affect, normal mood - Skin Skin exam: Present: dry, intact, normal color, warm - VTE Documentation of Mechanical Device: Intermittent pneumatic compression device Consult Discharge Plan - Plan Instructions: Sepsis (DC) Referrals: Aranza Ring [Primary Care Provider] - 11/29/17 1:30 pm Adiel Mclean MD [Partnered Physician] - 11/16/17 10:50 am Amrit Randle MD [Partnered Physician] - 01/16/18 3:00 pm Ad Mendoza MD [Partnered Physician] - 11/16/17 2:40 pm Prescriptions: Ciprofloxacin [Cipro] 500 mg PO Q12H #22 tablet Lactobacillus [Culturelle] 1 each PO BID #30 cap.sprink Lisinopril [Zestril] 20 mg PO DAILY #30 tablet Sucralfate [Carafate] 1 gm PO QIDA #120 tablet - Attending Attestation I examined this patient and my medical decision-making was reviewed with the Resident Physician. I agree with the documented findings, disposition and treatment plan as described except to the extent set forth below.
[2017-11-10] MEDS: Ascorbic Acid 500 MG TABLET PO SCH (10:30)
[2017-11-10] MEDS: BuPROPion XL (24 HR) 150 MG TABLET PO SCH (10:31)
[2017-11-10] MEDS: Lactobacillus 1 EACH CAP.SPRINK PO SCH (10:31)
[2017-11-10] MEDS: Renal Vitamin 1 MG CAPSULE PO SCH (10:31)
[2017-11-10] MEDS: Folic Acid 1 MG TABLET PO SCH (10:31)
[2017-11-10] MEDS: Lisinopril 20 MG TABLET PO SCH (10:31)
[2017-11-10] MEDS: Cyanocobalamin (B-12) 1,000 MCG TABLET PO SCH (10:31)
[2017-11-10] MEDS: Cholecalciferol (D-3) 1,000 UNIT TABLET PO SCH (10:31)
[2017-11-10 11:21] VITALS: BP 125/77
--- NOTE | 2017-11-10 11:35 | Internal Med Progress Note ---
Date of Encounter: 11/10/17 Time of Encounter: 10:50 - Assessment and plan (1) Sepsis Current Visit: Yes Status: Resolved Assessment and plan: Sepsis resolved. Complete oral antibiotic course. Qualifiers: Sepsis type: Salmonella Qualified Code(s): A02.1 - Salmonella sepsis (2) Colitis Current Visit: Yes Status: Acute Assessment and plan: With salmonella. Complete Cipro course for 14 days total. (3) Encephalopathy Current Visit: Yes Status: Resolved (4) Ellington esophagus Current Visit: Yes Status: Chronic Assessment and plan: Continue PPI and carafate. Qualifiers: Ellington's esophagus type: with dysplasia of unspecified degree Qualified Code(s): K22.719 - Ellington's esophagus with dysplasia, unspecified; K22.71 - Ellington's esophagus with dysplasia (5) Hypertension Current Visit: Yes Status: Chronic Assessment and plan: Well controlled Qualifiers: Hypertension type: essential hypertension Qualified Code(s): I10 - Essential (primary) hypertension (6) Closed fracture of 5th metacarpal Current Visit: Yes Status: Acute Assessment and plan: F/u with orthopedics after discharge. Right forearm and wrist in splint. Qualifiers: Encounter type: initial encounter Metacarpal location: neck Fracture alignment: nondisplaced Laterality: right Qualified Code(s): S62.366A - Nondisplaced fracture of neck of fifth metacarpal bone, right hand, initial encounter for closed fracture (7) Acute on chronic renal failure Current Visit: Yes Status: Resolved Qualifiers: Acute renal failure type: unspecified Chronic kidney disease stage: stage 3 (moderate) Qualified Code(s): N17.9 - Acute kidney failure, unspecified; N18.3 - Chronic kidney disease, stage 3 (moderate); N18.3 - Chronic kidney disease, stage 3 (moderate) (8) DVT prophylaxis Current Visit: Yes Status: Acute (9) Morbid obesity with BMI of 40.0-44.9, adult Current Visit: Yes Status: Chronic - Time Spent With Patient Total time spent is greater than 50% in coordination of care (as documented) at patient's floor/unit and/or counseling patient: - Subjective Interval history: Patient doing much better today. No abdominal pain. No nausea or vomiting. Does have mild diarrhea but this is improving. Feels that she is ready enough to go home. - Constitutional Vitals: Temp Pulse Resp BP Pulse Ox 97.9 F 57 17 125/77 97 11/10/17 11:19 11/10/17 11:19 11/10/17 11:19 11/10/17 11:19 11/10/17 11:19 General appearance: Present: cooperative, A&O X 3, no acute distress, answers questions appropriately - Neck Neck exam general surgery: Present: supple, trachea midline. Absent: lymphadenopathy - Respiratory Respiratory exam: Present: CTAB. Absent: accessory muscle use, rales, rhonchi, wheezes - Cardiovascular Cardiovascular exam: Present: RRR, +S1, +S2. Absent: diastolic murmur, gallop, rubs, systolic murmur - GI/Abdominal GI/Abdominal exam: Present: normal bowel sounds, soft, no peritoneal signs. Absent: distended, tenderness - Extremities Exam Extremities exam: Present: warm, radial pulses palpable and symmetrical. Absent : calf tenderness, cyanotic, pedal edema - Neurological Exam Neurological exam: Present: CN II-XII intact, oriented X3, no focal deficits. Absent: facial droop, speech deficit - Skin Skin exam: Present: dry, intact Internal Medicine: Result - Labs CBC & Chem 7: 11/09/17 06:25 11/09/17 06:25 - ABG Interpretation ABG results: PT/INR, D-dimer PT 12.5 Seconds (9.4-12.1) H 11/06/17 19:38 - VTE Documentation of Mechanical Device: Intermittent pneumatic compression device Consult Discharge Plan - Plan Instructions: Sepsis (DC) Referrals: Aranza Ring [Primary Care Provider] - 11/29/17 1:30 pm Adiel Mclean MD [Partnered Physician] - 11/16/17 10:50 am Amrit Randle MD [Partnered Physician] - 01/16/18 3:00 pm Ad Mendoza MD [Partnered Physician] - 11/16/17 2:40 pm Prescriptions: Ciprofloxacin [Cipro] 500 mg PO Q12H #22 tablet Lactobacillus [Culturelle] 1 each PO BID #30 cap.sprink Lisinopril [Zestril] 20 mg PO DAILY #30 tablet Sucralfate [Carafate] 1 gm PO QIDAC #120 tablet
--- NOTE | 2017-11-11 12:22 | Electrocardiograph Report ---
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
== END 2017-11-10 12:31 | disposition home or self-care (01) | DRG 720 ==
LOC: EMEROO 18:31 → 2ANU 18:31 → SUATTDRO 23:42 → 2ANU 23:55
PROVIDERS: ADMIT Internal Medicine; ATTEND Internal Medicine

== ENCOUNTER 2017-12-18 12:33 | Inpatient (IN) ==
[2017-12-18] MEDS ORDERED: 0.9 % Sodium Chloride 1,000 ML IVC ONE (13:04)
[2017-12-18] MEDS ORDERED: Ondansetron 4 MG/2 ML VIAL IVP ONE (13:09)
[2017-12-18] MEDS ORDERED: Isovue-370 500 ML INFUS..BTL IV ONE (13:12)
[2017-12-18] MEDS ORDERED: *HR* FentaNYL (PF) 100 MCG/2 ML VIAL IVP ONE (13:13)
[2017-12-18 13:25] LABS: Platelet Count 263 K/mcL (140-400)
[2017-12-18 13:26] LABS: Hematocrit 31.9 % (35.3-44.9); Hemoglobin 10.6 g/dL (11.5-15.4); Mean Corpuscular HGB Conc 33.2 g/dL (31.6-35.5); Mean Corpuscular Hemoglobin 30.5 pg (28.0-33.3); Mean Corpuscular Volume 91.9 fL (83.0-100.0); Mean Platelet Volume 9.2 fL (9.4-12.4); Red Blood Count 3.47 M/mcL (3.82-4.97); Red Cell Distribution Width 13.1 % (11.5-14.5)
--- NOTE | 2017-12-18 13:30 | Emergency Department Note ---
Disposition Clinical Impression: Sigmoid diverticulitis Disposition: Admitted As Inpatient Condition: Fair Referrals: Aranza Ring [Primary Care Provider] - Forms: ED Satisfaction Letter, Work/School Release Abdominal Pain HPI - General Chief Complaint: ED Abdominal Pain Stated Complaint: abd pain Time Seen by Provider: 12/18/17 12:41 Source: patient Nursing Notes Reviewed: Yes Vital Signs Reviewed: Yes - History of Present Illness HPI Narrative: 61-year-old female presents emergency department with concern for severe, left lower quadrant abdominal pain. Patient states she was recently diagnosed with Salmonella food poisoning a couple weeks ago. Patient reported no bowel movements today. States that she did have diarrhea before that. Patient had 2 episodes of nausea vomiting today. Reports subjective fevers. Patient states that the abdominal pain is diffuse does radiate some to the back. Patient denies any chest pain, pressure, tightness. Pain Scale: 8 - Related Data Home Medications Medication Instructions Recorded Confirmed Albuterol Sulfate [Ventolin Hfa] 2 puff IH Q4-6H PRN 01/20/17 12/18/17 Ascorbic Acid [Vitamin C] 500 mg PO DAILY 01/20/17 12/18/17 Bupropion HCl [Wellbutrin Xl] 300 mg PO DAILY 01/20/17 12/18/17 Calcitriol 0.25 mcg PO DAILY 01/20/17 12/18/17 Cholecalciferol (Vitamin D3) 5,000 unit PO DAILY 01/20/17 12/18/17 [Vitamin D3] Cyanocobalamin (Vitamin B-12) 1,000 mcg PO DAILY 01/20/17 12/18/17 [Vitamin B12] Folic Acid 1 mg PO DAILY 01/20/17 12/18/17 Gabapentin [Neurontin] 600 mg PO HS 03/16/17 12/18/17 Pantoprazole Sodium 40 mg PO DAILY 03/16/17 12/18/17 Trazodone HCl 100 mg PO HS 04/22/17 12/18/17 Iron Ag,Ps/C/Fa6/B12/Zn/SA/Sto 1 each PO DAILY 11/06/17 12/18/17 [Niferex Tablet] Mometasone/Formoterol [Dulera 200 2 puff IH BID 11/07/17 12/18/17 Mcg/5 Mcg Inhaler] Paroxetine [Paxil] 30 mg PO DAILY 12/18/17 12/18/17 Previous Rx's Medication Instructions Recorded Lisinopril [Zestril] 20 mg PO DAILY #30 tablet 11/09/17 Allergies Allergy/AdvReac Type Severity Reaction Status Date / Time codeine AdvReac Nausea Verified 12/18/17 14:53 morphine AdvReac Nausea Verified 12/18/17 14:53 Penicillins [PCN] AdvReac Rash Verified 12/18/17 14:53 Sulfa (Sulfonamide AdvReac Rash Verified 12/18/17 14:53 Antibiotics) All systems ED: reviewed and negative except as stated. Review of Systems: As Per HPI Constitutional: Reports: fever Cardiovascular: Denies: chest pain, palpitations, dyspnea on exertion Respiratory: Denies: cough, dyspnea, wheezes Gastrointestinal: Reports: abdominal pain, nausea, vomiting Genitourinary: Denies: urgency, dysuria, frequency, hematuria Musculoskeletal: Reports: back pain Integumentary: Denies: rash Neurological: Denies: headache, weakness, numbness Abdominal Pain PMH - Past Medical History Medical history: Reports: asthma, GERD, hyperlipidemia, hypertension, renal disease, other Female Surgical History: Reports: appendectomy, cholecystectomy, knee replacement, orthopedic, other, other [employer] history: Reports: bilateral tubal ligation Psychiatric history: Reports: anxiety, depression - Social History Smoking status: Never smoker Alcohol use: Reports: none Drug use: Reports: none Physical Exam - General Limitations: no limitations General appearance: alert, in no apparent distress - Head Head exam: atraumatic, normocephalic - Eye Eye exam: Present: EOMI. Absent: scleral icterus - ENT ENT exam: normal exam, normal oropharynx - Neck Neck exam: Present: trachea midline. Absent: tenderness, meningismus - Chest Chest inspection: Present: normal inspection, symmetric chest wall rise - Respiratory Respiratory exam: Present: normal lung sounds bilaterally. Absent: respiratory distress, accessory muscle use - Cardiovascular Cardiovascular exam: Present: regular rate, normal rhythm, normal heart sounds - Abdominal Exam Abdominal exam: Present: tenderness, guarding. Absent: distention, rebound, rigidity Abdominal tenderness: Present: RLQ, severe - Extremities Exam Extremities exam: Absent: pedal edema - Back Exam Back exam: Absent: CVA tenderness (R), CVA tenderness (L) Course Vital Signs Temperature 98.3 F 12/18/17 12:35 Pulse Rate 84 05/27/18 12:35 Respiratory Rate 20 12/18/17 12:35 Blood Pressure 100/55 12/18/17 12:35 O2 Sat by Pulse Oximetry 94 12/18/17 12:35 Temperature 98.3 F 12/18/17 12:35 Pulse Rate 76 12/18/17 15:05 Respiratory Rate 20 12/18/17 15:05 Blood Pressure 115/66 12/18/17 15:05 O2 Sat by Pulse Oximetry 100 12/18/17 15:05 Oxygen Delivery Oxygen Delivery Room Air Abdominal Pain - MDM Narrative Medical decision making narrative: 62-year-old female presents emergency department with concern for left lower quadrant abdominal pain. Bedside ultrasound was obtained and revealed an aorta that had normal size and caliber. CT scan abdomen and pelvis reveals evidence of acute sigmoid diverticulitis. Patient has leukocytosis of 36,000. Hemoglobin at 10.6. This is her normal. Patient has mildly elevated creatinine , but this is consistent with her chronic kidney disease. Hepatic acid was not elevated. Patient was given Flagyl and ciprofloxacin. I ordered a GI infection panel. This will take him to come back. Patient was given 1 L of fluids in the emergency department. She was also given fentanyl and Percocet as well as Zofran. Spoke with patient and her about admission, and she agreed. Patient admitted to the hospitalist, Dr. Larson. She agreed to accept the admission. Chest X-Ray 12/18/17 13:15 IMPRESSION: No acute process. D/ / Maikel Stevenson MD / Maikel Stevenson MD Interpreting Provider: Maikel Stevenson MD Abdomen/Pelvis CT 12/18/17 13:28 IMPRESSION: Acute sigmoid diverticulitis. No fluid collection or free air. D/ / Sanjana Gillette MD / Sanjana Gillette MD Interpreting Provider: Sanjana Gillette MD - Lab Data Result diagrams: 12/18/17 13:13 12/18/17 13:13 Lab Results 12/18/17 12/18/17 12/18/17 Range/Units 13:13 13:13 13:47 WBC 36.0 H* (4.3-11.1) K/mcL RBC 3.47 L (3.82-4.97) M/mcL Hgb 10.6 L (11.5-15.4) g/dL Hct 31.9 L (35.3-44.9) % MCV 91.9 (83.0-100.0) fL MCH 30.5 (28.0-33.3) pg MCHC 33.2 (31.6-35.5) g/dL RDW 13.1 (11.5-14.5) % Plt Count 263 (140-400) K/mcL MPV 9.2 L (9.4-12.4) fL Seg Neutrophils % 88.0 % Lymphocytes % 6.0 % Monocytes % 6.0 % Neutrophils # 31.7 H (1.6-8.9) K/mcL Lymphocytes # 2.2 (0.6-4.6) K/mcL Monocytes # 2.2 H (0.0-1.3) K/mcL Platelet Estimate Normal (Normal) Sodium 136 (136-145) mEq/L Potassium 3.9 (3.5-5.1) mEq/L Chloride 109 H (98-107) mEq/L Carbon Dioxide 17 L (23-29) mEq/L BUN 30 H (8-23) mg/dL Creatinine 2.38 H (0.60-1.20) mg/dL Est GFR ( Amer) 25 L (> 60) Est GFR (Non-Af Amer) 21 L (> 60) BUN/Creatinine Ratio 13 (6-26) Glucose 162 H (70-105) mg/dL Calculated Osmolality 292 (280-300) Lactic Acid 1.4 (0.5-2.2) mmol/L Calcium 8.8 (8.6-10.3) mg/dL Total Bilirubin 0.7 (0.3-1.0) mg/dL Direct Bilirubin 0.1 (0.0-0.2) mg/dL Indirect Bilirubin 0.6 (0.0-1.2) mg/dL AST 11 L (13-39) Units/L ALT 15 (7-52) Units/L Alkaline Phosphatase 62 (34-104) Units/L Troponin I < 0.03 (< 0.04) ng/mL Serum Total Protein 6.4 (6.4-8.9) g/dL Albumin 4.1 (3.5-5.7) g/dL Globulin 2.3 L (2.4-3.5) g/dL Albumin/Globulin Ratio 1.8 (1.1-2.2) Lipase 7 L (11-82) Units/L Urine Color (Yellow) Urine Clarity (Clear) Urine pH (5.0-8.0) pH Units Ur Specific [place] (1.010-1.025) Urine Protein (Neg-Trace) mg/dL Urine Glucose (UA) (Normal) mg/dL Urine Ketones (Negative) mg/dL Urine Blood (Negative) Urine Nitrite (Negative) Urine Bilirubin (Negative) Urine Urobilinogen (Normal) mg/dL Ur Leukocyte Esterase (Negative) Urine Microscopic RBC (0-3) per hpf Urine Microscopic WBC (0-3) per hpf Ur Squamous Epith Cells (None-Few) per lpf Urine Bacteria (None-Few) per hpf Hyaline Casts (None-Few) per lpf Granular Casts (None Seen) per lpf Ur Culture Indicated? (NO) 12/18/17 Range/Units 14:48 WBC (4.3-11.1) K/mcL RBC (3.82-4.97) M/mcL Hgb (11.5-15.4) g/dL Hct (35.3-44.9) % MCV (83.0-100.0) fL MCH (28.0-33.3) pg MCHC (31.6-35.5) g/dL RDW (11.5-14.5) % Plt Count (140-400) K/mcL MPV (9.4-12.4) fL Seg Neutrophils % % Lymphocytes % % Monocytes % % Neutrophils # (1.6-8.9) K/mcL Lymphocytes # (0.6-4.6) K/mcL Monocytes # (0.0-1.3) K/mcL Platelet Estimate (Normal) Sodium (136-145) mEq/L Potassium (3.5-5.1) mEq/L Chloride (98-107) mEq/L Carbon Dioxide (23-29) mEq/L BUN (8-23) mg/dL Creatinine (0.60-1.20) mg/dL Est GFR ( Amer) (> 60) Est GFR (Non-Af Amer) (> 60) BUN/Creatinine Ratio (6-26) Glucose (70-105) mg/dL Calculated Osmolality (280-300) Lactic Acid (0.5-2.2) mmol/L Calcium (8.6-10.3) mg/dL Total Bilirubin (0.3-1.0) mg/dL Direct Bilirubin (0.0-0.2) mg/dL Indirect Bilirubin (0.0-1.2) mg/dL AST (13-39) Units/L ALT (7-52) Units/L Alkaline Phosphatase (34-104) Units/L Troponin I (< 0.04) ng/mL Serum Total Protein (6.4-8.9) g/dL Albumin (3.5-5.7) g/dL Globulin (2.4-3.5) g/dL Albumin/Globulin Ratio (1.1-2.2) Lipase (11-82) Units/L Urine Color Yellow (Yellow) Urine Clarity Cloudy A (Clear) Urine pH 6.0 (5.0-8.0) pH Units Ur Specific [place] 1.018 (1.010-1.025) Urine Protein 30 H (Neg-Trace) mg/dL Urine Glucose (UA) Normal (Normal) mg/dL Urine Ketones Negative (Negative) mg/dL Urine Blood Negative (Negative) Urine Nitrite Negative (Negative) Urine Bilirubin Negative (Negative) Urine Urobilinogen Normal (Normal) mg/dL Ur Leukocyte Esterase Negative (Negative) Urine Microscopic RBC 0-3 (0-3) per hpf Urine Microscopic WBC 0-3 (0-3) per hpf Ur Squamous Epith Cells Many H (None-Few) per lpf Urine Bacteria None Seen (None-Few) per hpf Hyaline Casts None Seen (None-Few) per lpf Granular Casts Few H (None Seen) per lpf Ur Culture Indicated? NO (NO) - EKG Data EKG attestation: Yes I reviewed and interpreted this EKG. EKG results narrative: 13:28 Ventricular rate 70 bpm, WI interval 123 ms, QRS duration 96% segs, QT 369 ms, QTC 389 ms, left axis deviation. Sinus rhythm with a ventricular rate of 70 beats for minute. No ST changes that are concerning for ischemia when in comparison with the previous one obtained on 11/07/2017.
[2017-12-18 13:45] LABS: Troponin I < 0.03 ng/mL (< 0.04)
[2017-12-18 13:46] LABS: Alanine Aminotransferase 15 Units/L (7-52); Albumin 4.1 g/dL (3.5-5.7); Albumin/Globulin Ratio 1.8 (1.1-2.2); Alkaline Phosphatase 62 Units/L (34-104); Aspartate Amino Transferase 11 Units/L (13-39); BUN/Creatinine Ratio 13 (6-26); Bilirubin,Direct 0.1 mg/dL (0.0-0.2); Bilirubin,Indirect 0.6 mg/dL (0.0-1.2); Bilirubin,Total 0.7 mg/dL (0.3-1.0); Blood Urea Nitrogen 30 mg/dL (8-23); Calcium 8.8 mg/dL (8.6-10.3); Carbon Dioxide 17 mEq/L (23-29); Chloride 109 mEq/L (98-107); Globulin 2.3 g/dL (2.4-3.5); Glucose 162 mg/dL (70-105); Lipase 7 Units/L (11-82); Lymphocytes # 2.2 K/mcL (0.6-4.6); Monocytes # 2.2 K/mcL (0.0-1.3); Neutrophils # 31.7 K/mcL (1.6-8.9); Osmolality,Calculated 292 (280-300); Platelet Estimate Normal (Normal); Potassium 3.9 mEq/L (3.5-5.1); Sodium 136 mEq/L (136-145); Total Protein 6.4 g/dL (6.4-8.9); eGFR For African Americans 25 (> 60); eGFR For Non-African Americans 21 (> 60)
[2017-12-18] MEDS ORDERED: *HR* OxyCODONE/APAP 5/325 TABLET PO ONE (14:36)
[2017-12-18] MEDS ORDERED: MetroNIDAZOLE 500 MG/100 ML 500 MG/100 ML BAG IVPB ONE (14:41)
[2017-12-18 14:57] LABS: Bilirubin,Urine Negative (Negative); Blood,Urine Negative (Negative); Clarity,Urine Cloudy (Clear); Color,Urine Yellow (Yellow); Glucose,Urine (UA) Normal (Normal); Ketones,Urine Negative (Negative); Leukocyte Esterase,Urine Negative (Negative); Nitrite,Urine Negative (Negative); Protein,Urine 30 mg/dL (Neg-Trace); Specific Gravity,Urine 1.018 (1.010-1.025); Urobilinogen,Urine Normal (Normal)
[2017-12-18 15:00] LABS: Bacteria,Urine None Seen per hpf (None-Few); Hyaline Casts,Urine None Seen per lpf (None-Few); Squamous Epithelial Cell,Urine Many per lpf (None-Few); WBC,Urine 0-3 per hpf (0-3)
[2017-12-18 15:21] LABS: Granular Casts,Urine Few per lpf (None Seen); RBC,Urine 0-3 per hpf (0-3)
--- NOTE | 2017-12-18 15:27 | Emergency Department Note ---
Disposition Clinical Impression: Sigmoid diverticulitis Disposition: Admitted As Inpatient Condition: Fair Referrals: Aranza Ring [Primary Care Provider] - Forms: ED Satisfaction Letter, Work/School Release Abdominal Pain HPI - General Chief Complaint: ED Abdominal Pain Stated Complaint: abd pain Time Seen by Provider: 12/18/17 12:41 Source: patient Mode of arrival: ambulatory Limitations: no limitations Nursing Notes Reviewed: Yes Vital Signs Reviewed: Yes - History of Present Illness Pain Scale: 7 - Related Data Home Medications Medication Instructions Recorded Confirmed Albuterol Sulfate [Ventolin Hfa] 2 puff IH Q4-6H PRN 01/20/17 11/06/17 Ascorbic Acid [Vitamin C] 500 mg PO DAILY 01/20/17 11/06/17 Bupropion HCl [Wellbutrin Xl] 300 mg PO DAILY 01/20/17 11/06/17 Calcitriol 0.25 mcg PO DAILY 01/20/17 11/06/17 Cholecalciferol (Vitamin D3) 5,000 unit PO DAILY 01/20/17 11/06/17 [Vitamin D3] Cyanocobalamin (Vitamin B-12) 1,000 mcg PO DAILY 01/20/17 11/06/17 [Vitamin B12] Folic Acid 1 mg PO DAILY 01/20/17 11/06/17 Gabapentin [Neurontin] 600 mg PO HS 03/16/17 11/06/17 Pantoprazole Sodium 40 mg PO DAILY 03/16/17 11/06/17 Trazodone HCl 100 mg PO HS 04/22/17 11/06/17 Iron Ag,Ps/C/Fa6/B12/Zn/SA/Sto 1 each PO DAILY 11/06/17 11/06/17 [Niferex Tablet] Mometasone/Formoterol [Dulera 200 2 puff IH BID 11/07/17 11/07/17 Mcg/5 Mcg Inhaler] Paroxetine [Paxil] 30 mg PO DAILY 12/18/17 12/18/17 Previous Rx's Medication Instructions Recorded Lisinopril [Zestril] 20 mg PO DAILY #30 tablet 11/09/17 Allergies Allergy/AdvReac Type Severity Reaction Status Date / Time codeine AdvReac Nausea Verified 12/18/17 14:53 morphine AdvReac Nausea Verified 12/18/17 14:53 Penicillins [PCN] AdvReac Rash Verified 12/18/17 14:53 Sulfa (Sulfonamide AdvReac Rash Verified 12/18/17 14:53 Antibiotics) Constitutional: Reports: fever Cardiovascular: Denies: chest pain, palpitations, dyspnea on exertion Respiratory: Denies: cough, dyspnea, wheezes Gastrointestinal: Reports: abdominal pain, nausea, vomiting Genitourinary: Denies: urgency, dysuria, frequency, hematuria Musculoskeletal: Reports: back pain Integumentary: Denies: rash Neurological: Denies: headache, weakness, numbness Abdominal Pain PMH - Past Medical History Medical history: Reports: asthma, GERD, hyperlipidemia, hypertension, renal disease, other Female Surgical History: Reports: appendectomy, cholecystectomy, knee replacement, orthopedic, other, other [employer] history: Reports: bilateral tubal ligation Psychiatric history: Reports: anxiety, depression - Social History Smoking status: Never smoker Alcohol use: Reports: none Drug use: Reports: none Physical Exam - General Limitations: no limitations General appearance: alert, in no apparent distress Course Vital Signs Temperature 98.3 F 12/18/17 12:35 Pulse Rate 84 12/18/17 12:35 Respiratory Rate 20 12/18/17 12:35 Blood Pressure 100/55 12/18/17 12:35 O2 Sat by Pulse Oximetry 94 12/18/17 12:35 Temperature 98.3 F 12/18/17 12:35 Pulse Rate 76 12/18/17 15:05 Respiratory Rate 20 12/18/17 15:05 Blood Pressure 115/66 12/18/17 15:05 O2 Sat by Pulse Oximetry 100 12/18/17 15:05 Oxygen Delivery Oxygen Delivery Room Air Abdominal Pain - Lab Data Result diagrams: 12/18/17 13:13 12/18/17 13:13 Lab Results 12/18/17 12/18/17 12/18/17 Range/Units 13:13 13:13 13:47 WBC 36.0 H* (4.3-11.1) K/mcL RBC 3.47 L (3.82-4.97) M/mcL Hgb 10.6 L (11.5-15.4) g/dL Hct 31.9 L (35.3-44.9) % MCV 91.9 (83.0-100.0) fL MCH 30.5 (28.0-33.3) pg MCHC 33.2 (31.6-35.5) g/dL RDW 13.1 (11.5-14.5) % Plt Count 263 (140-400) K/mcL MPV 9.2 L (9.4-12.4) fL Seg Neutrophils % 88.0 % Lymphocytes % 6.0 % Monocytes % 6.0 % Neutrophils # 31.7 H (1.6-8.9) K/mcL Lymphocytes # 2.2 (0.6-4.6) K/mcL Monocytes # 2.2 H (0.0-1.3) K/mcL Platelet Estimate Normal (Normal) Sodium 136 (136-145) mEq/L Potassium 3.9 (3.5-5.1) mEq/L Chloride 109 H (98-107) mEq/L Carbon Dioxide 17 L (23-29) mEq/L BUN 30 H (8-23) mg/dL Creatinine 2.38 H (0.60-1.20) mg/dL Est GFR ( Amer) 25 L (> 60) Est GFR (Non-Af Amer) 21 L (> 60) BUN/Creatinine Ratio 13 (6-26) Glucose 162 H (70-105) mg/dL Calculated Osmolality 292 (280-300) Lactic Acid 1.4 (0.5-2.2) mmol/L Calcium 8.8 (8.6-10.3) mg/dL Total Bilirubin 0.7 (0.3-1.0) mg/dL Direct Bilirubin 0.1 (0.0-0.2) mg/dL Indirect Bilirubin 0.6 (0.0-1.2) mg/dL AST 11 L (13-39) Units/L ALT 15 (7-52) Units/L Alkaline Phosphatase 62 (34-104) Units/L Troponin I < 0.03 (< 0.04) ng/mL Serum Total Protein 6.4 (6.4-8.9) g/dL Albumin 4.1 (3.5-5.7) g/dL Globulin 2.3 L (2.4-3.5) g/dL Albumin/Globulin Ratio 1.8 (1.1-2.2) Lipase 7 L (11-82) Units/L Urine Color (Yellow) Urine Clarity (Clear) Urine pH (5.0-8.0) pH Units Ur Specific [place] (1.010-1.025) Urine Protein (Neg-Trace) mg/dL Urine Glucose (UA) (Normal) mg/dL Urine Ketones (Negative) mg/dL Urine Blood (Negative) Urine Nitrite (Negative) Urine Bilirubin (Negative) Urine Urobilinogen (Normal) mg/dL Ur Leukocyte Esterase (Negative) Urine Microscopic RBC (0-3) per hpf Urine Microscopic WBC (0-3) per hpf Ur Squamous Epith Cells (None-Few) per lpf Urine Bacteria (None-Few) per hpf Hyaline Casts (None-Few) per lpf Granular Casts (None Seen) per lpf Ur Culture Indicated? (NO) 12/18/17 Range/Units 14:48 WBC (4.3-11.1) K/mcL RBC (3.82-4.97) M/mcL Hgb (11.5-15.4) g/dL Hct (35.3-44.9) % MCV (83.0-100.0) fL MCH (28.0-33.3) pg MCHC (31.6-35.5) g/dL RDW (11.5-14.5) % Plt Count (140-400) K/mcL MPV (9.4-12.4) fL Seg Neutrophils % % Lymphocytes % % Monocytes % % Neutrophils # (1.6-8.9) K/mcL Lymphocytes # (0.6-4.6) K/mcL Monocytes # (0.0-1.3) K/mcL Platelet Estimate (Normal) Sodium (136-145) mEq/L Potassium (3.5-5.1) mEq/L Chloride (98-107) mEq/L Carbon Dioxide (23-29) mEq/L BUN (8-23) mg/dL Creatinine (0.60-1.20) mg/dL Est GFR ( Amer) (> 60) Est GFR (Non-Af Amer) (> 60) BUN/Creatinine Ratio (6-26) Glucose (70-105) mg/dL Calculated Osmolality (280-300) Lactic Acid (0.5-2.2) mmol/L Calcium (8.6-10.3) mg/dL Total Bilirubin (0.3-1.0) mg/dL Direct Bilirubin (0.0-0.2) mg/dL Indirect Bilirubin (0.0-1.2) mg/dL AST (13-39) Units/L ALT (7-52) Units/L Alkaline Phosphatase (34-104) Units/L Troponin I (< 0.04) ng/mL Serum Total Protein (6.4-8.9) g/dL Albumin (3.5-5.7) g/dL Globulin (2.4-3.5) g/dL Albumin/Globulin Ratio (1.1-2.2) Lipase (11-82) Units/L Urine Color Yellow (Yellow) Urine Clarity Cloudy A (Clear) Urine pH 6.0 (5.0-8.0) pH Units Ur Specific [place] 1.018 (1.010-1.025) Urine Protein 30 H (Neg-Trace) mg/dL Urine Glucose (UA) Normal (Normal) mg/dL Urine Ketones Negative (Negative) mg/dL Urine Blood Negative (Negative) Urine Nitrite Negative (Negative) Urine Bilirubin Negative (Negative) Urine Urobilinogen Normal (Normal) mg/dL Ur Leukocyte Esterase Negative (Negative) Urine Microscopic RBC 0-3 (0-3) per hpf Urine Microscopic WBC 0-3 (0-3) per hpf Ur Squamous Epith Cells Many H (None-Few) per lpf Urine Bacteria None Seen (None-Few) per hpf Hyaline Casts None Seen (None-Few) per lpf Granular Casts Few H (None Seen) per lpf Ur Culture Indicated? NO (NO) Attestation Statement - Attestation Attestation: I, Paul Loja, examined this patient and my medical decision-making was reviewed with the DIRECTOR REGULATORY AGENCY/PA/Advanced Practice Nurse/Resident Physician. I agree with the documented findings, disposition and treatment plan as described except to the extent set forth below. 61-year-old female presents emergency Department with concerns of abdominal pain. Patient states the pain is in the bilateral lower quadrants and suprapubic region. Patient states she has mild back pain in association with the abdominal pain. Patient denies vaginal bleeding or vaginal discharge. Denies hematochezia or melena. No epigastric pain. Patient blood pressure was soft on initial evaluation. Patient denies chest pain or shortness of breath or palpitations. No syncopal events. Bedside ultrasound was performed which did not show an aortic aneurysm. CT of the abdomen and pelvis without contrast shows sigmoid colon diverticulitis. Patient has a significantly elevated leukocytosis. We do have concerns about possible C. difficile and we will obtain stool culture. Patient will be admitted to the hospitalist for further care and evaluation.
[2017-12-18] MEDS ORDERED: Naloxone 0.4 MG/ML INJ IVP PRN (17:52)
[2017-12-18] MEDS ORDERED: Ondansetron 4 MG/2 ML VIAL IVP PRN (17:52)
--- NOTE | 2017-12-18 18:04 | Internal Med History&Physical ---
Date of Encounter: 12/18/17 Time of Encounter: 18:01 Internal Medicine - H&P: HPI Chief complaint: abdominal pain Admitted From: Home Plans for Post Hospital Care: Home History of present illness: Ms. Deleon is a 62 year old female who has history of CK D stages 3 morbid obesity GERD hypertension presenting emergency room for sudden onset abdominal pain. Pain is located to the lower abdominal, start from 6 AM; 8 out of 10 constant sharp associated was nausea vomiting no diarrhea. She also Has some fever and chills. In the emergency room she has WBCs 36. CT scan shows acute diverticulitis patient is going to be admitted for acute diverticulitis. Past Med Surg Social Fam HX - Past Medical History Medical history: asthma, GERD, hyperlipidemia, hypertension, renal disease, other Psychiatric history: anxiety, depression - Past Surgical History Surgical History: appendectomy, cholecystectomy, herniorrhaphy - Social History Smoking Status: Never smoker Smokeless Tobacco Status: No Alcohol use: none Drug use: none - Family History Mother Living Status: Still Living Hx Family Cardiac Disorders: Yes (CABG) Hx Family Neurologic Disorders: Yes (DEMENTIA) Father Living Status: Internal Medicine - H&P: Meds Albuterol Sulfate [Ventolin Hfa] 2 puff IH Q4-6H PRN 01/20/17 [History] Ascorbic Acid [Vitamin C] 500 mg PO DAILY 01/20/17 [History] Bupropion HCl [Wellbutrin Xl] 300 mg PO DAILY 01/20/17 [History] Calcitriol 0.25 mcg PO DAILY 01/20/17 [History] Cholecalciferol (Vitamin D3) [Vitamin D3] 5,000 unit PO DAILY 01/20/17 [History] Cyanocobalamin (Vitamin B-12) [Vitamin B12] 1,000 mcg PO DAILY 01/20/17 [History ] Folic Acid 1 mg PO DAILY 01/20/17 [History] Gabapentin [Neurontin] 600 mg PO HS 03/16/17 [History] Pantoprazole Sodium 40 mg PO DAILY 03/16/17 [History] Trazodone HCl 100 mg PO HS 04/22/17 [History] Iron Ag,Ps/C/Fa6/B12/Zn/SA/Sto [Niferex Tablet] 1 each PO DAILY 11/06/17 [ History] Mometasone/Formoterol [Dulera 200 Mcg/5 Mcg Inhaler] 2 puff IH BID 11/07/17 [ History] Lisinopril [Zestril] 20 mg PO DAILY #30 tablet 11/09/17 [Rx] Paroxetine [Paxil] 30 mg PO DAILY 12/18/17 [History] 3 Allergy/AdvReac Type Severity Reaction Status Date / Time codeine AdvReac Nausea Verified 12/18/17 14:53 morphine AdvReac Nausea Verified 12/18/17 14:53 Penicillins [PCN] AdvReac Rash Verified 12/18/17 14:53 Sulfa (Sulfonamide AdvReac Rash Verified 12/18/17 14:53 Antibiotics) All Systems PM: A 10-system review of systems was performed and is negative for pertinent findings except as documented above in the HPI. - Constitutional Vitals: Temp Pulse Resp BP Pulse Ox 98.2 F 64 16 117/76 99 12/18/17 16:19 12/18/17 16:19 12/18/17 16:19 12/18/17 16:19 12/18/17 16:19 General appearance: Present: A&O X 3, pleasant, obese, answers questions appropriately Exam: CONSTITUTIONAL: Patient appears as an age appropriate female well developed, in no acute distress. EYES Clear sclerae, bilateral pupils are equal, reactive to light and accommodation. Extraocular movements are intact RESPIRATORY: No accessory muscle use, bilateral clear to auscultation, no wheezing, no crackles/rales. CARDIOVASCULAR: Regular heart rate, normal S1 and S2, no murmurs GASTROINTESTINAL: bowel sounds present, soft, lower abdominal tenderness. No hepatosplenomegaly. No bilateral CVA tenderness MUSCULOSKELETAL: Joints in normal range of motion, no clubbing, no edema, no cyanosis. Bilateral peripheral pulses 2+ LYMPHATIC no lymphadenopathy in neck, groin and axilla bilaterally, no thyromegaly. NEUROLOGIC: CN II to XII are grossly intact, no focal neurological deficit. Deep tendon reflexes 2+ bilaterally. Normal light touch sensation to upper and lower extremity PSYCHIATRIC: Oriented x3, with good insight, mood is euthymic. No hallucinations or delusions. SKIN: Skin warm and dry, no rashes, no open wound. Internal Med - H&P Results - Labs CBC & Chem 7: 12/18/17 13:13 12/18/17 13:13 - Assessment and plan (1) Sigmoid diverticulitis Current Visit: Yes Status: Acute Assessment and plan: CT confirmed, no abscess. Continue Flagyl and Cipro (2) Salmonella enteritis Current Visit: No Status: Acute Assessment and plan: recent infection completed 14 days of ATB (3) Morbid obesity with BMI of 40.0-44.9, adult Current Visit: Yes Status: Chronic (4) Depression Current Visit: Yes Status: Chronic Qualifiers: Depression Type: unspecified Qualified Code(s): F32.9 - Major depressive disorder, single episode, unspecified (5) Hypertension Current Visit: Yes Status: Chronic Assessment and plan: continue home meds Qualifiers: Hypertension type: essential hypertension Qualified Code(s): I10 - Essential (primary) hypertension (6) CKD (chronic kidney disease), stage III Current Visit: Yes Status: Chronic Assessment and plan: stable cr - Time Spent With Patient Total time spent is greater than 50% in coordination of care (as documented) at patient's floor/unit and/or counseling patient:
[2017-12-18] MEDS: D5% in 0.45% NACL 1,000 ML IVC SCH (19:33)
[2017-12-18] MEDS: OXYCODONE Oral CONC 10 MG/0.5 ML ORAL.SYG SL PRN (19:44)
[2017-12-18] MEDS: Budesonide/Formoterol 160/4.5 MDI IH SCH (19:55)
[2017-12-18] MEDS: Gabapentin 300 MG CAPSULE PO SCH (21:10)
[2017-12-18] MEDS: traZODone 50 MG TABLET PO SCH (21:10)
[2017-12-18] MEDS: MetroNIDAZOLE 500 MG/100 ML 500 MG/100 ML BAG IVPB SCH (23:56)
[2017-12-19] MEDS: D5% in 0.45% NACL 1,000 ML IVC SCH (05:54)
[2017-12-19 06:32] LABS: Hematocrit 26.9 % (35.3-44.9); Hemoglobin 8.8 g/dL (11.5-15.4); Mean Corpuscular HGB Conc 32.7 g/dL (31.6-35.5); Mean Corpuscular Hemoglobin 30.8 pg (28.0-33.3); Mean Corpuscular Volume 94.1 fL (83.0-100.0); Mean Platelet Volume 9.6 fL (9.4-12.4); Platelet Count 224 K/mcL (140-400); Red Blood Count 2.86 M/mcL (3.82-4.97); Red Cell Distribution Width 13.2 % (11.5-14.5)
[2017-12-19 06:53] LABS: Calcium 8.1 mg/dL (8.6-10.3); Magnesium 1.3 mg/dL (1.6-2.6); Phosphorous 3.9 mg/dL (2.7-4.5); Potassium 3.7 mEq/L (3.5-5.1)
[2017-12-19] MEDS: Budesonide/Formoterol 160/4.5 MDI IH SCH ×2 (07:41→20:18)
[2017-12-19] MEDS: BuPROPion XL (24 HR) 150 MG TABLET PO SCH (10:01)
[2017-12-19] MEDS: Cyanocobalamin (B-12) 1,000 MCG TABLET PO SCH (10:01)
[2017-12-19] MEDS: Iron Polysaccharide Complex 150 MG CAPSULE PO SCH (10:01)
[2017-12-19] MEDS: MetroNIDAZOLE 500 MG/100 ML 500 MG/100 ML BAG IVPB SCH ×3 (10:01→23:42)
[2017-12-19] MEDS: Lisinopril 20 MG TABLET PO SCH (10:01)
[2017-12-19] MEDS: Folic Acid 1 MG TABLET PO SCH (10:01)
[2017-12-19] MEDS: Cholecalciferol (D-3) 1,000 UNIT TABLET PO SCH (10:02)
[2017-12-19] MEDS: Ascorbic Acid 500 MG TABLET PO SCH (10:02)
[2017-12-19] MEDS: OXYCODONE Oral CONC 10 MG/0.5 ML ORAL.SYG SL PRN (10:25)
[2017-12-19] MEDS: Acetaminophen 325 MG TABLET PO PRN (18:52)
[2017-12-19] MEDS: traZODone 50 MG TABLET PO SCH (20:56)
[2017-12-19] MEDS: Gabapentin 300 MG CAPSULE PO SCH (20:56)
--- NOTE | 2017-12-19 22:55 | Internal Med Progress Note ---
Date of Encounter: 12/19/17 Time of Encounter: 19:00 - Assessment and plan (1) Acute diverticulitis Status: Acute Assessment and plan: Getting better. Will start clear liquids. We will continue IV fluids. She's on IV ciprofloxacin and IV metronidazole. (2) Ellington esophagus Status: Chronic Qualifiers: Ellington's esophagus type: with dysplasia of unspecified degree Qualified Code(s): K22.719 - Ellington's esophagus with dysplasia, unspecified; K22.71 - Ellington's esophagus with dysplasia (3) Hypertensive renal disease with renal failure Status: Acute Assessment and plan: Under control. Will continue lisinopril. - Time Spent With Patient Total time spent is greater than 50% in coordination of care (as documented) at patient's floor/unit and/or counseling patient: - Subjective Interval history: She feels significantly better.Her pain is relatively mild. It is located in left lower quadrant. It is not associated with nausea or vomiting. She was hungry a little bit. - Constitutional Vitals: Temp Pulse Resp BP Pulse Ox 97.2 F L 57 16 103/50 98 12/19/17 19:40 12/19/17 19:40 12/19/17 20:20 12/19/17 19:40 12/19/17 20:20 General appearance: Present: A&O X 3, pleasant, obese, answers questions appropriately - Respiratory Respiratory exam: Present: CTAB. Absent: accessory muscle use, rales, rhonchi, wheezes - Cardiovascular Cardiovascular exam: Present: RRR, +S1, +S2. Absent: diastolic murmur, gallop, rubs, systolic murmur - GI/Abdominal GI/Abdominal exam: Present: normal bowel sounds, soft, no peritoneal signs. Absent: distended, tenderness - Skin Skin exam: Present: dry, intact Internal Medicine: Result - Labs CBC & Chem 7: 12/21/17 05:53 12/21/17 05:53 Labs: Short CBC 12/19/17 Range/Units 05:56 WBC 17.2 H D (4.3-11.1) K/mcL Hgb 8.8 L D (11.5-15.4) g/dL Hct 26.9 L (35.3-44.9) % Plt Count 224 (140-400) K/mcL BMP 12/19/17 05:56 Sodium 137 Potassium 3.7 Chloride 111 H Carbon Dioxide 19 L BUN 30 H Creatinine 2.20 H Glucose 128 H Calcium 8.1 L Consult Discharge Plan - Plan Instructions: Diverticulitis (DC) Referrals: Aranza Ring [Primary Care Provider] - 01/05/18 8:15 am Prescriptions: Ciprofloxacin [Cipro] 250 mg PO BID 9 Days #18 tablet metroNIDAZOLE [Flagyl] 500 mg PO TID 9 Days #27 tablet
[2017-12-20 06:30] LABS: Hematocrit 28.4 % (35.3-44.9); Hemoglobin 9.2 g/dL (11.5-15.4); Mean Corpuscular HGB Conc 32.4 g/dL (31.6-35.5); Mean Corpuscular Hemoglobin 30.8 pg (28.0-33.3); Mean Platelet Volume 9.7 fL (9.4-12.4); Platelet Count 244 K/mcL (140-400); Red Blood Count 2.99 M/mcL (3.82-4.97); Red Cell Distribution Width 13.2 % (11.5-14.5)
[2017-12-20 07:04] LABS: Calcium 8.5 mg/dL (8.6-10.3); Magnesium 2.1 mg/dL (1.6-2.6); Potassium 4.1 mEq/L (3.5-5.1)
[2017-12-20] MEDS: Budesonide/Formoterol 160/4.5 MDI IH SCH ×2 (07:27→20:03)
[2017-12-20] MEDS: Cholecalciferol (D-3) 1,000 UNIT TABLET PO SCH (09:15)
[2017-12-20] MEDS: Cyanocobalamin (B-12) 1,000 MCG TABLET PO SCH (09:16)
[2017-12-20] MEDS: Lisinopril 20 MG TABLET PO SCH (09:16)
[2017-12-20] MEDS: Iron Polysaccharide Complex 150 MG CAPSULE PO SCH (09:16)
[2017-12-20] MEDS: Folic Acid 1 MG TABLET PO SCH (09:16)
[2017-12-20] MEDS: BuPROPion XL (24 HR) 150 MG TABLET PO SCH (09:16)
[2017-12-20] MEDS: MetroNIDAZOLE 500 MG/100 ML 500 MG/100 ML BAG IVPB SCH ×2 (09:17→15:23)
[2017-12-20] MEDS: Ascorbic Acid 500 MG TABLET PO SCH (09:21)
[2017-12-20] MEDS: *HR* Heparin 5,000 UNIT/ML VIAL SQ SCH ×2 (09:23→18:24)
--- NOTE | 2017-12-20 12:48 | Internal Med Progress Note ---
Date of Encounter: 12/20/17 Time of Encounter: 10:00 - Assessment and plan (1) Acute diverticulitis Current Visit: Yes Status: Acute Assessment and plan: Date #3 IV Cipro and Flagyl. Anticipate changed to oral soon. Patient to complete a 10-14 day course of therapy. She is improving. Once I am sure she is tolerating clears I will entertain advancing diet as well as change in these to oral medications. She did have a recent gastroenteritis per records. ? If related. (2) Morbid obesity with BMI of 40.0-44.9, adult Current Visit: Yes Status: Chronic (3) Hypertension Current Visit: Yes Status: Chronic Assessment and plan: Stable, blood pressure on soft side. Qualifiers: Hypertension type: essential hypertension Qualified Code(s): I10 - Essential (primary) hypertension (4) CKD (chronic kidney disease), stage III Current Visit: Yes Status: Chronic Assessment and plan: Patient with kidney disease stage III. Creatinine is around her baseline as of the last 3-4 months. We will need close outpatient follow-up. Avoid nephrotoxins, continue IV fluids, monitor. (5) Salmonella enteritis Current Visit: No Status: Acute Assessment and plan: Was treated recently. ? If related to presenting complaint - Time Spent With Patient Total time spent is greater than 50% in coordination of care (as documented) at patient's floor/unit and/or counseling patient: 25 - 35 minutes - Subjective Interval history: Ms. Deleon is a 62 year old female who has history of CK D stages 3 morbid obesity GERD hypertension presenting emergency room for sudden onset abdominal pain. Pain is located to the lower abdominal, start from 6 AM; 8 out of 10 constant sharp associated was nausea vomiting no diarrhea. She also Has some fever and chills. In the emergency room she has WBCs 36. CT scan shows acute sigmoid diverticulitis patient is going to be admitted for acute diverticulitis. 12/20: Patient states her pain is improved but still rated as a 5 out of 10 aching pain in the midabdomen. No fevers or chills. No nausea, vomiting, diarrhea. No chest pain or shortness of breath. She is been tolerating a clear liquid diet. We have had difficulties with IV access and access team has been consulted. - Constitutional Vitals: Temp Pulse Resp BP Pulse Ox 98.0 F 63 14 110/69 93 12/20/17 10:24 12/20/17 10:24 12/20/17 10:24 12/20/17 10:24 12/20/17 10:24 General appearance: Present: mild distress, A&O X 3, pleasant, obese, answers questions appropriately Exam: Complaining of abdominal discomfort - Eye Eye exam: Present: PERRL, conjuntiva pink, sclera anicteric Pupils: Present: PERRL - Neck Neck exam general surgery: Present: supple, trachea midline. Absent: lymphadenopathy - Cardiovascular Cardiovascular exam: Present: RRR, +S1, +S2. Absent: diastolic murmur, gallop, rubs, systolic murmur - GI/Abdominal GI/Abdominal exam: Present: normal bowel sounds, soft, no peritoneal signs. Absent: distended - Extremities Exam Extremities exam: Present: warm, radial pulses palpable and symmetrical. Absent : calf tenderness, cyanotic, pedal edema - Neurological Exam Neurological exam: Present: CN II-XII intact, oriented X3, no focal deficits. Absent: pronater drift, facial droop, speech deficit - Skin Skin exam: Present: dry, intact Internal Medicine: Result - Labs CBC & Chem 7: 12/20/17 05:56 12/20/17 05:56 Labs: Short CBC 12/20/17 Range/Units 05:56 WBC 10.0 (4.3-11.1) K/mcL Hgb 9.2 L (11.5-15.4) g/dL Hct 28.4 L (35.3-44.9) % Plt Count 244 (140-400) K/mcL [facility] 12/20/17 05:56 Sodium 138 Potassium 4.1 Chloride 110 H Carbon Dioxide 19 L BUN 32 H Creatinine 2.68 H Glucose 109 H Calcium 8.5 L Consult Discharge Plan - Plan Instructions: Diverticulitis (DC) Referrals: Aranza Ring [Primary Care Provider] -
[2017-12-20] MEDS: 0.9 % Sodium Chloride 1,000 ML IVC SCH (15:21)
[2017-12-20] MEDS: OXYCODONE Oral CONC 10 MG/0.5 ML ORAL.SYG SL PRN (18:27)
[2017-12-20] MEDS ORDERED: Ondansetron 4 MG/2 ML VIAL IVP PRN (19:46)
[2017-12-20] MEDS: traZODone 50 MG TABLET PO SCH (22:30)
[2017-12-20] MEDS: Gabapentin 300 MG CAPSULE PO SCH (22:30)
[2017-12-21] MEDS: MetroNIDAZOLE 500 MG/100 ML 500 MG/100 ML BAG IVPB SCH ×2 (01:08→08:50)
[2017-12-21] MEDS: 0.9 % Sodium Chloride 1,000 ML IVC SCH ×2 (02:43→11:49)
[2017-12-21] MEDS: *HR* Heparin 5,000 UNIT/ML VIAL SQ SCH ×2 (05:48→20:28)
[2017-12-21 06:27] LABS: Hematocrit 26.4 % (35.3-44.9); Hemoglobin 8.3 g/dL (11.5-15.4); Mean Corpuscular HGB Conc 31.4 g/dL (31.6-35.5); Mean Corpuscular Hemoglobin 30.3 pg (28.0-33.3); Mean Corpuscular Volume 96.4 fL (83.0-100.0); Mean Platelet Volume 9.8 fL (9.4-12.4); Platelet Count 229 K/mcL (140-400); Red Blood Count 2.74 M/mcL (3.82-4.97); Red Cell Distribution Width 13.4 % (11.5-14.5)
[2017-12-21 06:44] LABS: Calcium 8.4 mg/dL (8.6-10.3)
--- NOTE | 2017-12-21 06:53 | Electrocardiograph Report ---
[address] [address] Test Date: 2017-12-18 Pat Name: Toña Deleon Department: 103 Room: 3A51 Gender: F [employer]: : 1955 Requested By: Erick Santiago Order Number: [id number] Reading MD: Mani Plata Measurements Intervals [place] Rate: 70 P: 24 CA: 123 QRS: -4 QRSD: 96 T: 12 QT: 369 QTc: 389 Interpretive Statements SINUS RHYTHM MODERATE VOLTAGE CRITERIA FOR LVH, CONSIDER NORMAL VARIANT Electronically Signed On 12-21-2017 6:52:24 EDT by Mani Plata
[2017-12-21] MEDS: Budesonide/Formoterol 160/4.5 MDI IH SCH ×2 (07:34→20:22)
[2017-12-21] MEDS: Cholecalciferol (D-3) 1,000 UNIT TABLET PO SCH (08:47)
[2017-12-21] MEDS: Folic Acid 1 MG TABLET PO SCH (08:47)
[2017-12-21] MEDS: BuPROPion XL (24 HR) 150 MG TABLET PO SCH (08:48)
[2017-12-21] MEDS: Iron Polysaccharide Complex 150 MG CAPSULE PO SCH (08:48)
[2017-12-21] MEDS: Cyanocobalamin (B-12) 1,000 MCG TABLET PO SCH (08:48)
[2017-12-21] MEDS: Ascorbic Acid 500 MG TABLET PO SCH (08:49)
--- NOTE | 2017-12-21 13:01 | Internal Med Progress Note ---
Date of Encounter: 12/21/17 Time of Encounter: 10:00 - Assessment and plan (1) Acute diverticulitis Current Visit: Yes Status: Acute Assessment and plan: Date #3 IV Cipro and Flagyl. Anticipate changed to oral soon. Patient to complete a 10-14 day course of therapy. She is improving. Once I am sure she is tolerating clears I will entertain advancing diet as well as change in these to oral medications. She did have a recent gastroenteritis per records. ? If related. 12/21: Patient is day #4 Cipro and Flagyl. I will change to oral. I will also advance diet as tolerated. Anticipate discharge in the next 24 hours if she continues to do well. (2) Morbid obesity with BMI of 40.0-44.9, adult Current Visit: Yes Status: Chronic (3) Hypertension Current Visit: Yes Status: Chronic Assessment and plan: Stable, blood pressure on soft side. Qualifiers: Hypertension type: essential hypertension Qualified Code(s): I10 - Essential (primary) hypertension (4) CKD (chronic kidney disease), stage III Current Visit: Yes Status: Chronic Assessment and plan: Patient with kidney disease stage III. Creatinine is around her baseline as of the last 3-4 months. We will need close outpatient follow-up. Avoid nephrotoxins, continue IV fluids, monitor. (5) Salmonella enteritis Current Visit: No Status: Acute Assessment and plan: Was treated recently. ? If related to presenting complaint - Time Spent With Patient Total time spent is greater than 50% in coordination of care (as documented) at patient's floor/unit and/or counseling patient: 25 - 35 minutes - Subjective Interval history: Ms. Deleon is a 62 year old female who has history of CK D stages 3 morbid obesity GERD hypertension presenting emergency room for sudden onset abdominal pain. Pain is located to the lower abdominal, start from 6 AM; 8 out of 10 constant sharp associated was nausea vomiting no diarrhea. She also Has some fever and chills. In the emergency room she has WBCs 36. CT scan shows acute sigmoid diverticulitis patient is going to be admitted for acute diverticulitis. 12/20: Patient states her pain is improved but still rated as a 5 out of 10 aching pain in the midabdomen. No fevers or chills. No nausea, vomiting, diarrhea. No chest pain or shortness of breath. She is been tolerating a clear liquid diet. We have had difficulties with IV access and access team has been consulted. 12/21: Abdominal pain has improved. Still 4-5 out of 10 but overall stating it is better. No fevers or chills. No nausea, vomiting, diarrhea. She has been tolerating a clear diet. Patient had 3 soft bowel movements this morning. - Constitutional Vitals: Temp Pulse Resp BP Pulse Ox 98.5 F 56 14 92/55 93 12/21/17 11:37 12/21/17 11:37 12/21/17 11:37 12/21/17 11:37 12/21/17 11:37 General appearance: Present: mild distress, A&O X 3, pleasant, obese, answers questions appropriately - Head Head exam: Present: atraumatic, normocephalic - Eye Eye exam: Present: PERRL, conjuntiva pink, sclera anicteric Pupils: Present: PERRL - Neck Neck exam general surgery: Present: supple, trachea midline. Absent: lymphadenopathy - Respiratory Respiratory exam: Present: CTAB. Absent: accessory muscle use, rales, rhonchi, wheezes - Cardiovascular Cardiovascular exam: Present: RRR, +S1, +S2. Absent: diastolic murmur, gallop, rubs, systolic murmur - GI/Abdominal GI/Abdominal exam: Present: normal bowel sounds, soft, tenderness, no peritoneal signs. Absent: distended - Extremities Exam Extremities exam: Present: warm, radial pulses palpable and symmetrical. Absent : calf tenderness, cyanotic, pedal edema - Neurological Exam Neurological exam: Present: CN II-XII intact, oriented X3, no focal deficits. Absent: pronater drift, facial droop, speech deficit - Skin Skin exam: Present: dry, intact Internal Medicine: Result - Labs CBC & Chem 7: 12/21/17 05:53 12/21/17 05:53 Labs: Short CBC 12/21/17 Range/Units 05:53 WBC 7.6 (4.3-11.1) K/mcL Hgb 8.3 L (11.5-15.4) g/dL Hct 26.4 L (35.3-44.9) % Plt Count 229 (140-400) K/mcL BMP 12/21/17 05:53 Sodium 140 Potassium 4.0 Chloride 113 H Carbon Dioxide 20 L BUN 26 H Creatinine 2.43 H Glucose 104 Calcium 8.4 L Consult Discharge Plan - Plan Instructions: Diverticulitis (DC) Referrals: Aranza Ring [Primary Care Provider] -
[2017-12-21] MEDS: Acetaminophen 325 MG TABLET PO PRN (16:53)
[2017-12-21] MEDS: metroNIDAZOLE 500 MG TABLET PO SCH ×2 (16:53→20:30)
[2017-12-21] MEDS: traZODone 50 MG TABLET PO SCH (20:28)
[2017-12-21] MEDS: Gabapentin 300 MG CAPSULE PO SCH (20:29)
[2017-12-22] MEDS: *HR* Heparin 5,000 UNIT/ML VIAL SQ SCH (06:21)
[2017-12-22] MEDS: Budesonide/Formoterol 160/4.5 MDI IH SCH (08:01)
[2017-12-22] MEDS: Folic Acid 1 MG TABLET PO SCH (09:38)
[2017-12-22] MEDS: BuPROPion XL (24 HR) 150 MG TABLET PO SCH (09:38)
[2017-12-22] MEDS: Cholecalciferol (D-3) 1,000 UNIT TABLET PO SCH (09:38)
[2017-12-22] MEDS: Ascorbic Acid 500 MG TABLET PO SCH (09:38)
[2017-12-22] MEDS: Iron Polysaccharide Complex 150 MG CAPSULE PO SCH (09:38)
[2017-12-22] MEDS: Cyanocobalamin (B-12) 1,000 MCG TABLET PO SCH (09:39)
[2017-12-22] MEDS: metroNIDAZOLE 500 MG TABLET PO SCH (09:39)
[2017-12-22 10:56] VITALS: BP 116/76
--- NOTE | 2017-12-22 11:25 | Discharge Summary ---
Date of Encounter: 12/22/17 Time of Encounter: 11:22 - Discharge Diagnosis (1) Acute diverticulitis Priority: Primary Status: Acute Assessment and Plan: Date #3 IV Cipro and Flagyl. Anticipate changed to oral soon. Patient to complete a 10-14 day course of therapy. She is improving. Once I am sure she is tolerating clears I will entertain advancing diet as well as change in these to oral medications. She did have a recent gastroenteritis per records. ? If related. 12/21: Patient is day #4 Cipro and Flagyl. I will change to oral. I will also advance diet as tolerated. Anticipate discharge in the next 24 hours if she continues to do well. 12/22: Day #5 of 14 days Cipro/Flagyl (2) Morbid obesity with BMI of 40.0-44.9, adult Priority: Secondary Status: Chronic (3) Hypertension Priority: Secondary Status: Chronic Assessment and Plan: Stable Qualifiers: Hypertension type: essential hypertension Qualified Code(s): I10 - Essential (primary) hypertension (4) CKD (chronic kidney disease), stage III Priority: Secondary Status: Chronic Assessment and Plan: Patient with kidney disease stage III. Creatinine is around her baseline as of the last 3-4 months. We will need close outpatient follow-up. Avoid nephrotoxins, continue IV fluids, monitor. 12/22: Stable (5) Salmonella enteritis Priority: Secondary Status: Acute Assessment and Plan: Was treated recently. ? If related to presenting complaint Hospital course: Ms. Deleon is a 62 year old female who has history of CK D stages 3 morbid obesity GERD hypertension presenting emergency room for sudden onset abdominal pain. Pain is located to the lower abdominal, start from 6 AM; 8 out of 10 constant sharp associated was nausea vomiting no diarrhea. She also Has some fever and chills. In the emergency room she has WBCs 36. CT scan shows acute sigmoid diverticulitis patient is going to be admitted for acute diverticulitis. 12/20: Patient states her pain is improved but still rated as a 5 out of 10 aching pain in the midabdomen. No fevers or chills. No nausea, vomiting, diarrhea. No chest pain or shortness of breath. She is been tolerating a clear liquid diet. We have had difficulties with IV access and access team has been consulted. 12/21: Abdominal pain has improved. Still 4-5 out of 10 but overall stating it is better. No fevers or chills. No nausea, vomiting, diarrhea. She has been tolerating a clear diet. Patient had 3 soft bowel movements this morning. 12/22: Patient doing much better today. Pain is almost gone. Tolerating a full diet. No complaints patient is stable for discharge. She is currently day #5 of a planned 14 day course of Flagyl 500 mg by mouth 3 times a day, Cipro 500 mg by mouth twice a day for acute sigmoid diverticulitis. Follow-up with primary care provider next week. Víctor Diaz should she develop fevers, increased pain or any other problems appear Discharge discussed with: patient - Time Spent with Patient Total time spent providing and/or coordinating discharge services: Less than 30 minutes - Discharge Medications Home Medications: Albuterol Sulfate [Ventolin Hfa] 2 puff IH Q4-6H PRN 01/20/17 [History] Ascorbic Acid [Vitamin C] 500 mg PO DAILY 01/20/17 [History] Bupropion HCl [Wellbutrin Xl] 300 mg PO DAILY 01/20/17 [History] Calcitriol 0.25 mcg PO DAILY 01/20/17 [History] Cholecalciferol (Vitamin D3) [Vitamin D3] 5,000 unit PO DAILY 01/20/17 [History] Cyanocobalamin (Vitamin B-12) [Vitamin B12] 1,000 mcg PO DAILY 01/20/17 [History ] Folic Acid 1 mg PO DAILY 01/20/17 [History] Gabapentin [Neurontin] 600 mg PO HS 03/16/17 [History] Pantoprazole Sodium 40 mg PO DAILY 03/16/17 [History] Trazodone HCl 100 mg PO HS 04/22/17 [History] Iron Ag,Ps/C/Fa6/B12/Zn/SA/Sto [Niferex Tablet] 1 each PO DAILY 11/06/17 [ History] Mometasone/Formoterol [Dulera 200 Mcg/5 Mcg Inhaler] 2 puff IH BID 11/07/17 [ History] Lisinopril [Zestril] 20 mg PO DAILY #30 tablet 11/09/17 [Rx] Paroxetine [Paxil] 30 mg PO DAILY 12/18/17 [History] Allergies/Adverse Reactions: 3 Allergy/AdvReac Type Severity Reaction Status Date / Time codeine AdvReac Nausea Verified 12/18/17 14:53 morphine AdvReac Nausea Verified 12/18/17 14:53 Penicillins [PCN] AdvReac Rash Verified 12/18/17 14:53 Sulfa (Sulfonamide AdvReac Rash Verified 12/18/17 14:53 Antibiotics) Date of admission: 12/18/17 20:21 Primary care physician: Aranza Ring Consults: 12/20/17 09:25 Consult to Invasive Line Access Team [CONS] Routine Reason for Consult: poor vascular access Line Type: EPIV Discharging clinician: William Cartwright Anticipated date of discharge: 12/22/17 - Constitutional Vitals: Temp Pulse Resp BP Pulse Ox 97.9 F 50 16 116/76 96 12/22/17 10:55 12/22/17 10:55 12/22/17 10:55 12/22/17 10:55 12/22/17 10:55 General appearance: Present: mild distress, A&O X 3, pleasant, obese, answers questions appropriately - Head Head exam: Present: atraumatic, normocephalic - Eye Eye exam: Present: PERRL, conjuntiva pink, sclera anicteric Pupils: Present: PERRL - Neck Neck exam general surgery: Present: supple, trachea midline. Absent: lymphadenopathy - Respiratory Respiratory exam: Present: CTAB. Absent: accessory muscle use, rales, rhonchi, wheezes - Cardiovascular Cardiovascular exam: Present: RRR, +S1, +S2. Absent: diastolic murmur, gallop, rubs, systolic murmur - GI/Abdominal GI/Abdominal exam: Present: normal bowel sounds, soft, no peritoneal signs. Absent: distended, tenderness - Extremities Exam Extremities exam: Present: warm, radial pulses palpable and symmetrical. Absent : calf tenderness, cyanotic, pedal edema - Neurological Exam Neurological exam: Present: CN II-XII intact, oriented X3, no focal deficits. Absent: pronater drift, facial droop, speech deficit - Skin Skin exam: Present: dry, intact - Patient Status Disposition: Home, Self-Care Condition: Fair Functional capacity at discharge: independent ambulation Overall status at discharge: patient is progressing back to baseline - Discharge Instructions Instructions: Diverticulitis (DC) Follow Up With: Aranza Ring [Primary Care Provider] - - Diet and Activity Activity: increase activity as tolerated Diet: advance to your usual diet
== END 2017-12-22 12:35 | disposition home or self-care (01) | DRG 244 ==
LOC: EMEROO 12:33 → 3ANU 12:33 → SUATTDRO 20:21
PROVIDERS: ADMIT Hospitalist; ATTEND Internal Medicine

== ENCOUNTER 2018-01-29 13:54 | Inpatient (IN) ==
[2018-01-29 15:00] LABS: Basophils # 0.1 K/mcL (0.0-0.2); Basophils % 0.4 %; Eosinophils # 0.2 K/mcL (0.0-0.6); Eosinophils % 1.1 %; Hematocrit 37.3 % (35.3-44.9); Immature Granulocytes % 0.4 % (0-4); Lymphocytes # 1.4 K/mcL (0.6-4.6); Lymphocytes % 8.6 %; Mean Corpuscular HGB Conc 32.2 g/dL (31.6-35.5); Mean Corpuscular Hemoglobin 29.6 pg (28.0-33.3); Mean Corpuscular Volume 92.1 fL (83.0-100.0); Mean Platelet Volume 9.3 fL (9.4-12.4); Monocytes # 0.8 K/mcL (0.0-1.3); Monocytes % 5.1 %; Neutrophils # 13.2 K/mcL (1.6-8.9); Platelet Count 314 K/mcL (140-400); Red Blood Count 4.05 M/mcL (3.82-4.97); Red Cell Distribution Width 13.2 % (11.5-14.5); Segmented Neutrophils % 84.4 %
[2018-01-29 15:49] LABS: Lipase < 3 Units/L (11-82)
[2018-01-29 15:52] LABS: Alanine Aminotransferase 5 Units/L (7-52); Albumin 3.8 g/dL (3.5-5.7); Albumin/Globulin Ratio 1.5 (1.1-2.2); Alkaline Phosphatase 70 Units/L (34-104); Aspartate Amino Transferase 5 Units/L (13-39); BUN/Creatinine Ratio 9 (6-26); Bilirubin,Direct 0.1 mg/dL (0.0-0.2); Bilirubin,Indirect 0.2 mg/dL (0.0-1.2); Bilirubin,Total 0.3 mg/dL (0.3-1.0); Blood Urea Nitrogen 35 mg/dL (8-23); Calcium 8.7 mg/dL (8.6-10.3); Carbon Dioxide 14 mEq/L (23-29); Chloride 114 mEq/L (98-107); Globulin 2.5 g/dL (2.4-3.5); Glucose 119 mg/dL (70-105); Osmolality,Calculated 295 (280-300); Potassium 3.8 mEq/L (3.5-5.1); Sodium 138 mEq/L (136-145); Total Protein 6.3 g/dL (6.4-8.9); eGFR For African Americans 15 (> 60); eGFR For Non-African Americans 12 (> 60)
[2018-01-29 15:57] LABS: Bilirubin,Urine Negative (Negative); Blood,Urine Negative (Negative); Clarity,Urine Clear (Clear); Color,Urine Yellow (Yellow); Glucose,Urine (UA) Normal (Normal); Ketones,Urine Negative (Negative); Leukocyte Esterase,Urine Negative (Negative); Nitrite,Urine Negative (Negative); Protein,Urine Trace mg/dL (Neg-Trace); Specific Gravity,Urine 1.014 (1.010-1.025); Urobilinogen,Urine Normal (Normal)
[2018-01-29] MEDS ORDERED: 0.9 % Sodium Chloride 1,000 ML IVC ONE (16:09)
[2018-01-29] MEDS ORDERED: *HR* FentaNYL (PF) 100 MCG/2 ML VIAL IVP ONE (16:09)
--- NOTE | 2018-01-29 16:12 | Emergency Department Note ---
Disposition Clinical Impression: Colitis presumed to be due to infection, Acute kidney injury Disposition: Admitted As Inpatient Condition: Fair Referrals: Aranza Ring [Primary Care Provider] - Forms: ED Satisfaction Letter Time of Disposition: 17:57 Abdominal Pain HPI - General Chief Complaint: ED Abdominal Pain Stated Complaint: stomach hurting and diarrhea Time Seen by Provider: 01/29/18 16:02 Source: patient Mode of arrival: private vehicle Limitations: no limitations Nursing Notes Reviewed: Yes Vital Signs Reviewed: Yes - History of Present Illness Pt Subjective Complaint: abdominal pain Onset (ago): day(s) (5 days) Consistency: constant Location: RUQ, epigastric Pain Severity: severe Pain Scale: 8 Quality: sharp Radiation: RUQ, R flank Migration to: no migration Improves with: nothing Worsens with: nothing Context: recent antibiotic use (Treated for diverticulitis at the end of November), history of similar episodes (Diagnoses diverticulitis) Associated symptoms: Reports: nausea, diarrhea (Frequent diarrhea for couple weeks). Denies: fever, chills Treatments prior to arrival: none - Related Data Home Medications Medication Instructions Recorded Confirmed Albuterol Sulfate [Ventolin Hfa] 2 puff IH Q4-6H PRN 01/20/17 12/18/17 Ascorbic Acid [Vitamin C] 500 mg PO DAILY 01/20/17 12/18/17 Bupropion HCl [Wellbutrin Xl] 300 mg PO DAILY 01/20/17 12/18/17 Calcitriol 0.25 mcg PO DAILY 01/20/17 12/18/17 Cholecalciferol (Vitamin D3) 5,000 unit PO DAILY 01/20/17 12/18/17 [Vitamin D3] Cyanocobalamin (Vitamin B-12) 1,000 mcg PO DAILY 01/20/17 12/18/17 [Vitamin B12] Folic Acid 1 mg PO DAILY 01/20/17 12/18/17 Gabapentin [Neurontin] 600 mg PO HS 03/16/17 12/18/17 Pantoprazole Sodium 40 mg PO DAILY 03/16/17 12/18/17 Trazodone HCl 100 mg PO HS 04/22/17 12/18/17 Iron Ag,Ps/C/Fa6/B12/Zn/SA/Sto 1 each PO DAILY 11/06/17 12/18/17 [Niferex Tablet] Mometasone/Formoterol [Dulera 200 2 puff IH BID 11/07/17 12/18/17 Mcg/5 Mcg Inhaler] Paroxetine [Paxil] 30 mg PO DAILY 12/18/17 12/18/17 Previous Rx's Medication Instructions Recorded Lisinopril [Zestril] 20 mg PO DAILY #30 tablet 11/09/17 Ciprofloxacin [Cipro] 250 mg PO BID 9 Days #18 tablet 12/22/17 metroNIDAZOLE [Flagyl] 500 mg PO TID 9 Days #27 tablet 12/22/17 Allergies Allergy/AdvReac Type Severity Reaction Status Date / Time codeine AdvReac Nausea Verified 12/18/17 14:53 morphine AdvReac Nausea Verified 12/18/17 14:53 Penicillins [PCN] AdvReac Rash Verified 12/18/17 14:53 Sulfa (Sulfonamide AdvReac Rash Verified 12/18/17 14:53 Antibiotics) All systems ED: reviewed and negative except as stated. Constitutional: Denies: fever, chills ENT ED: Denies: ear pain, throat pain, congestion Cardiovascular: Denies: chest pain, palpitations Respiratory: Denies: cough, dyspnea Gastrointestinal: Reports: abdominal pain, nausea, vomiting (Vomited today), diarrhea (Multiple episodes) Genitourinary: Denies: urgency, dysuria, frequency Musculoskeletal: Denies: back pain Integumentary: Denies: rash Neurological: Denies: headache Abdominal Pain PMH - Past Medical History Medical history: Reports: asthma, GERD, hyperlipidemia, hypertension, renal disease, other Female Surgical History: Reports: appendectomy, cholecystectomy, knee replacement, orthopedic, other, other [employer] history: Reports: bilateral tubal ligation Psychiatric history: Reports: anxiety, depression - Social History Smoking status: Never smoker Alcohol use: Reports: none Drug use: Reports: none Physical Exam - General Limitations: no limitations General appearance: alert, in no apparent distress - Head Head exam: atraumatic, normocephalic, normal inspection - Eye Eye exam: Present: normal appearance, PERRL. Absent: scleral icterus, conjunctival injection - ENT ENT exam: normal exam, normal oropharynx, mucous membranes moist, normal external ear exam - Neck Neck exam: Present: normal inspection, full ROM - Chest Chest inspection: Present: normal inspection, symmetric chest wall rise. Absent : tenderness - Respiratory Respiratory exam: Present: normal lung sounds bilaterally. Absent: respiratory distress, wheezes - Cardiovascular Cardiovascular exam: Present: regular rate, normal rhythm, normal heart sounds - Abdominal Exam Abdominal exam: Present: soft, tenderness, normal bowel sounds. Absent: distention Abdominal tenderness: Present: RUQ, epigastrium, moderate - Extremities Exam Extremities exam: Present: normal inspection. Absent: pedal edema - Back Exam Back exam: Present: full ROM. Absent: tenderness - Neurological Exam Neurological exam: Present: alert, oriented X3 - Psychiatric Psychiatric exam: Present: normal affect, normal mood - Skin Skin exam: Present: warm, dry. Absent: rash Course Course Narrative: Patient presents with abdominal pain that she says is consistent with diverticulitis which she has had recently, most recently in November of this year. However the location of her discomfort is epigastric and right upper quadrant when she had a sigmoid diverticulitis back then. She is also having a lot of diarrhea since that diverticulitis episode in November. That makes me suspicious of C. difficile. However she is focally tender to palpation in the right upper quadrant and epigastrium. I think we need to CT her belly as well as collect a stool specimen. Labs show an elevation of white count and an elevation of creatinine so I am given her pain medicines and IV fluids and will await the CT results as well as the C. difficile result to determine appropriate disposition. - Reevaluation(s) Reevaluation #1: White count is little bit elevated at 15. Creatinine is up whole point from baseline. CT scan of the abdomen shows a localized colitis. He does not report diverticulitis. The etiology of the colitis could quite possibly be C. difficile given the fact that she has had diarrhea since getting antibiotics 6 weeks ago. However the patient has not given me a stool specimen yet to test for the C. difficile. I am going to empirically start her on Levaquin and Flagyl for colitis. She will need to be admitted to the hospital for hydration and further evaluation. I have paged the hospitalist. Time: 17:36 - Consultations Consultation #1: Dr. Powell, hospitalist - I discussed the case with the hospitalist. Patient is accepted for admission to the hospital. Time: 17:56 Vital Signs Temperature 98.0 F 01/29/18 14:00 Pulse Rate 76 01/29/18 14:00 Respiratory Rate 16 01/29/18 14:00 O2 Sat by Pulse Oximetry 96 01/29/18 14:00 Temperature 98.0 F 01/29/18 14:03 Pulse Rate 85 01/29/18 17:42 Respiratory Rate 18 01/29/18 17:42 Blood Pressure 138/57 01/29/18 17:42 O2 Sat by Pulse Oximetry 96 01/29/18 17:42 Oxygen Delivery Oxygen Delivery Room Air Abdominal Pain - Medical Records Medical records reviewed: Yes I reviewed the patient's medical records. - Lab Data Lab results reviewed: Yes I reviewed the patient's lab results. Result diagrams: 01/29/18 14:52 01/29/18 14:52 Lab Results 01/29/18 01/29/18 01/29/18 Range/Units 14:52 14:52 15:48 WBC 15.6 H (4.3-11.1) K/mcL RBC 4.05 (3.82-4.97) M/mcL Hgb 12.0 (11.5-15.4) g/dL Hct 37.3 (35.3-44.9) % MCV 92.1 (83.0-100.0) fL MCH 29.6 (28.0-33.3) pg MCHC 32.2 (31.6-35.5) g/dL RDW 13.2 (11.5-14.5) % Plt Count 314 (140-400) K/mcL MPV 9.3 L (9.4-12.4) fL Immature Gran % 0.4 (0-4) % Seg Neutrophils % 84.4 % Lymphocytes % 8.6 % Monocytes % 5.1 % Eosinophils % 1.1 % Basophils % 0.4 % Neutrophils # 13.2 H (1.6-8.9) K/mcL Lymphocytes # 1.4 (0.6-4.6) K/mcL Monocytes # 0.8 (0.0-1.3) K/mcL Eosinophils # 0.2 (0.0-0.6) K/mcL Basophils # 0.1 (0.0-0.2) K/mcL Sodium 138 (136-145) mEq/L Potassium 3.8 (3.5-5.1) mEq/L Chloride 114 H (98-107) mEq/L Carbon Dioxide 14 L (23-29) mEq/L BUN 35 H (8-23) mg/dL Creatinine 3.79 H (0.60-1.20) mg/dL Est GFR ( Amer) 15 L (> 60) Est GFR (Non-Af Amer) 12 L (> 60) BUN/Creatinine Ratio 9 (6-26) Glucose 119 H (70-105) mg/dL Calculated Osmolality 295 (280-300) Calcium 8.7 (8.6-10.3) mg/dL Total Bilirubin 0.3 (0.3-1.0) mg/dL Direct Bilirubin 0.1 (0.0-0.2) mg/dL Indirect Bilirubin 0.2 (0.0-1.2) mg/dL AST 5 L (13-39) Units/L ALT 5 L (7-52) Units/L Alkaline Phosphatase 70 (34-104) Units/L Serum Total Protein 6.3 L (6.4-8.9) g/dL Albumin 3.8 (3.5-5.7) g/dL Globulin 2.5 (2.4-3.5) g/dL Albumin/Globulin Ratio 1.5 (1.1-2.2) Lipase < 3 L (11-82) Units/L Urine Color Yellow (Yellow) Urine Clarity Clear (Clear) Urine pH 6.0 (5.0-8.0) pH Units Ur Specific [place] 1.014 (1.010-1.025) Urine Protein Trace (Neg-Trace) mg/dL Urine Glucose (UA) Normal (Normal) mg/dL Urine Ketones Negative (Negative) mg/dL Urine Blood Negative (Negative) Urine Nitrite Negative (Negative) Urine Bilirubin Negative (Negative) Urine Urobilinogen Normal (Normal) mg/dL Ur Leukocyte Esterase Negative (Negative) Ur Culture Indicated? NO (NO) - Radiology Data Radiology results reviewed: Yes I reviewed the patient's radiology results.
[2018-01-29] MEDS ORDERED: Levofloxacin 750 MG/150 ML 750 MG/150 ML BAG IVPB ONE (17:33)
[2018-01-29] MEDS ORDERED: MetroNIDAZOLE 500 MG/100 ML 500 MG/100 ML BAG IVPB ONE (17:33)
[2018-01-29] MEDS ORDERED: Naloxone 0.4 MG/ML INJ IVP PRN (19:55)
[2018-01-29] MEDS ORDERED: Acetaminophen 325 MG TABLET PO PRN (19:55)
--- NOTE | 2018-01-29 20:11 | Internal Med History&Physical ---
Date of Encounter: 01/29/18 Time of Encounter: 19:00 Internal Medicine - H&P: HPI Chief complaint: Abdominal pain Admitted From: Home Plans for Post Hospital Care: Home History of present illness: Ms. Deleon is a 62 year old female present to ER for abdominal pain and diarrhea. Past medical history is significant for anemia, CKD stage IV, GERD S/ P fundoplication. Patient has chronic diarrhea since last February. Patient was found diverticulitis and salmonella infection in this November. She was treated with antibiotics and was discharged to home on by mouth antibiotics. Patient said she still has chronic diarrhea and abdominal pain. Sometimes nausea and vomiting. Patient denies fever. Patient has severe watery diarrhea, nonbloody , 10-15 times a day. Patient said that the diarrhea affect her life significantly and she has seen GI as outpatient. Today, patient came to ER and abdominal CT shows colitis and the patient was found worsening kidney function. Patient was admitted for further management. Past Med Surg Social Fam HX - Past Medical History Medical history: asthma, GERD, hyperlipidemia, hypertension, renal disease, other Additional medical history: diverticulitis Psychiatric history: anxiety, depression - Past Surgical History Surgical History: appendectomy, cholecystectomy, herniorrhaphy Additional surgical history: bilateral knees - Social History Smoking Status: Never smoker Smokeless Tobacco Status: No Alcohol use: none Drug use: none - Family History Mother Living Status: Still Living Hx Family Cardiac Disorders: Yes (CABG) Hx Family Neurologic Disorders: Yes (DEMENTIA) Father Living Status: Internal Medicine - H&P: Meds Albuterol Sulfate [Ventolin Hfa] 2 puff IH Q4-6H PRN 01/20/17 [History] Ascorbic Acid [Vitamin C] 500 mg PO DAILY 01/20/17 [History] Bupropion HCl [Wellbutrin Xl] 300 mg PO DAILY 01/20/17 [History] Calcitriol 0.25 mcg PO DAILY 01/20/17 [History] Cholecalciferol (Vitamin D3) [Vitamin D3] 5,000 unit PO DAILY 01/20/17 [History] Cyanocobalamin (Vitamin B-12) [Vitamin B12] 1,000 mcg PO DAILY 01/20/17 [History ] Folic Acid 1 mg PO DAILY 01/20/17 [History] Gabapentin [Neurontin] 600 mg PO HS 03/16/17 [History] Pantoprazole Sodium 40 mg PO DAILY 03/16/17 [History] Trazodone HCl 100 mg PO HS 04/22/17 [History] Iron Ag,Ps/C/Fa6/B12/Zn/SA/Sto [Niferex Tablet] 1 each PO DAILY 11/06/17 [ History] Mometasone/Formoterol [Dulera 200 Mcg/5 Mcg Inhaler] 2 puff IH BID 11/07/17 [ History] Lisinopril [Zestril] 20 mg PO DAILY #30 tablet 11/09/17 [Rx] Paroxetine [Paxil] 30 mg PO DAILY 12/18/17 [History] Ciprofloxacin [Cipro] 250 mg PO BID 9 Days #18 tablet 12/22/17 [Rx] metroNIDAZOLE [Flagyl] 500 mg PO TID 9 Days #27 tablet 12/22/17 [Rx] 3 Allergy/AdvReac Type Severity Reaction Status Date / Time codeine AdvReac Nausea Verified 12/18/17 14:53 morphine AdvReac Nausea Verified 12/18/17 14:53 Penicillins [PCN] AdvReac Rash Verified 12/18/17 14:53 Sulfa (Sulfonamide AdvReac Rash Verified 12/18/17 14:53 Antibiotics) All Systems PM: A 10-system review of systems was performed and is negative for pertinent findings except as documented above in the HPI. - Constitutional Vitals: Temp Pulse Resp BP Pulse Ox 98.0 F 85 18 104/69 96 01/29/18 14:03 01/29/18 17:42 01/29/18 18:52 01/29/18 18:52 01/29/18 17:42 General appearance: Present: A&O X 3, no acute distress, answers questions appropriately - Head Head exam: Present: atraumatic, normocephalic - Eye Eye exam: Present: PERRL, conjuntiva pink, sclera anicteric Pupils: Present: PERRL - Neck Neck exam general surgery: Present: supple, trachea midline. Absent: lymphadenopathy - Respiratory Respiratory exam: Present: CTAB. Absent: accessory muscle use, rales, rhonchi, wheezes - Cardiovascular Cardiovascular exam: Present: RRR, +S1, +S2. Absent: diastolic murmur, gallop, rubs, systolic murmur - GI/Abdominal GI/Abdominal exam: Present: normal bowel sounds, soft, tenderness (Tenderness in 4Q without rebound or guarding), no peritoneal signs. Absent: distended - Extremities Exam Extremities exam: Present: warm, radial pulses palpable and symmetrical. Absent : calf tenderness, cyanotic, pedal edema - Neurological Exam Neurological exam: Present: CN II-XII intact, oriented X3, no focal deficits. Absent: pronater drift, facial droop, speech deficit - Skin Skin exam: Present: dry, intact Internal Med - H&P Results - Labs CBC & Chem 7: 01/29/18 14:52 01/29/18 14:52 - Assessment and plan (1) Acute on chronic renal failure Current Visit: No Status: Resolved Assessment and plan: Probably due to dehydration which caused by diarrhea and poor intake. Patient also has mild metabolic acidosis. - Place patient on Ringer lactate fluid 120ml per hour - Avoid nephrotoxic medications, dose medication with renal function - Monitor renal function closely Qualifiers: Acute renal failure type: unspecified Chronic kidney disease stage: stage 3 (moderate) Qualified Code(s): N17.9 - Acute kidney failure, unspecified; N18.3 - Chronic kidney disease, stage 3 (moderate); N18.3 - Chronic kidney disease, stage 3 (moderate) (2) Colitis Current Visit: No Status: Acute Assessment and plan: Abdominal CT shows colitis. Patient has abdominal pain, leukocytosis, diarrhea - Place patient on clear liquid diet, IV fluid - Continue Levaquin and Flagyl IV - GI stool panel to rule out Salmonella and C. difficile infection - Consult GI for further management as patient has persistent symptoms (3) DVT prophylaxis Current Visit: No Status: Acute Assessment and plan: Heparin subcutaneously - Time Spent With Patient Total time spent is greater than 50% in coordination of care (as documented) at patient's floor/unit and/or counseling patient: 40 minutes Greater than 35 minutes
[2018-01-29] MEDS: Ringers Solution, Lactated 1,000 ML IVC SCH (20:55)
[2018-01-29] MEDS: Budesonide/Formoterol 160/4.5 MDI IH SCH (22:06)
[2018-01-29] MEDS: MetroNIDAZOLE 500 MG/100 ML 500 MG/100 ML BAG IVPB SCH ×2 (23:54→23:55)
[2018-01-30] MEDS ORDERED: MetroNIDAZOLE 500 MG/100 ML 500 MG/100 ML BAG IVPB SCH
[2018-01-30 04:37] LABS: Basophils # 0.1 K/mcL (0.0-0.2); Basophils % 0.4 %; Eosinophils # 0.2 K/mcL (0.0-0.6); Eosinophils % 1.4 %; Hematocrit 29.9 % (35.3-44.9); Immature Granulocytes % 0.5 % (0-4); Lymphocytes # 1.4 K/mcL (0.6-4.6); Lymphocytes % 12.1 %; Mean Corpuscular HGB Conc 32.4 g/dL (31.6-35.5); Mean Corpuscular Hemoglobin 29.3 pg (28.0-33.3); Mean Corpuscular Volume 90.3 fL (83.0-100.0); Mean Platelet Volume 9.3 fL (9.4-12.4); Monocytes # 0.9 K/mcL (0.0-1.3); Monocytes % 7.5 %; Neutrophils # 8.9 K/mcL (1.6-8.9); Platelet Count 289 K/mcL (140-400); Red Blood Count 3.31 M/mcL (3.82-4.97); Red Cell Distribution Width 13.2 % (11.5-14.5); Segmented Neutrophils % 78.1 %
[2018-01-30 04:41] LABS: Hemoglobin 9.7 g/dL (11.5-15.4)
[2018-01-30 04:56] LABS: Calcium 8.2 mg/dL (8.6-10.3); Magnesium 1.5 mg/dL (1.6-2.6); Phosphorous 4.6 mg/dL (2.7-4.5); Potassium 3.6 mEq/L (3.5-5.1)
[2018-01-30] MEDS: Ringers Solution, Lactated 1,000 ML IVC SCH (05:07)
[2018-01-30] MEDS: MetroNIDAZOLE 500 MG/100 ML 500 MG/100 ML BAG IVPB SCH ×2 (05:08→13:19)
[2018-01-30] MEDS: *HR* Heparin 5,000 UNIT/ML VIAL SQ SCH ×2 (05:09→17:09)
[2018-01-30 08:35] LABS: Adenovirus F 40/41 PCR Not detected (Not detect); Astrovirus PCR Not detected (Not detect); C.difficile Toxin A/B by PCR See reflex test (Not detect); Campylobacter by PCR Not detected (Not detect); Cryptosporidium by PCR Not detected (Not detect); Cyclospora cayetanensis PCR Not detected (Not detect); E. coli O157 by PCR Not detected (Not detect); Entamoeba histolytica PCR Not detected (Not detect); Enteroaggregative E.coli(EAEC) Not detected (Not detect); Enteropathogenic E.coli(EPEC) Not detected (Not detect); Enterotoxigenic E.coli (ETEC) Not detected (Not detect); Giardia lamblia PCR Not detected (Not detect); Norovirus GI/GII PCR Not detected (Not detect); Plesiomonas shigelloides PCR Not detected (Not detect); Rotavirus A PCR Not detected (Not detect); Salmonella PCR Not detected (Not detect); Sapovirus PCR Not detected (Not detect); Shig/EnteroinvasiveE coli EIEC Not detected (Not detect); Shigalike tox-prod E coli STEC Not detected (Not detect); Vibrio PCR Not detected (Not detect); Vibrio cholerae PCR Not detected (Not detect); Yersinia enterocolitica PCR Not detected (Not detect)
[2018-01-30] MEDS ORDERED: Aspirin Enteric Coated 81 MG Tablet PO SCH (09:45)
[2018-01-30] MEDS: Budesonide/Formoterol 160/4.5 MDI IH SCH ×2 (10:49→19:52)
--- NOTE | 2018-01-30 12:19 | Internal Med Progress Note ---
Date of Encounter: 01/30/18 Time of Encounter: 12:16 - Assessment and plan (1) Acute on chronic renal failure Current Visit: No Status: Resolved Assessment and plan: Probably due to dehydration which caused by diarrhea and poor intake. Patient also has mild metabolic acidosis. - Place patient on Ringer lactate fluid 120ml per hour - Avoid nephrotoxic medications, dose medication with renal function - Monitor renal function closely 01/30-slowly improving renal function. Continue to avoid nephrotoxins medications and continue on IV fluids for now. Consider consulting nephrology if renal function deteriorates or does not improve tomorrow. Repeat BMP in the morning Qualifiers: Acute renal failure type: unspecified Chronic kidney disease stage: stage 3 (moderate) Qualified Code(s): N17.9 - Acute kidney failure, unspecified; N18.3 - Chronic kidney disease, stage 3 (moderate); N18.3 - Chronic kidney disease, stage 3 (moderate) (2) C. difficile diarrhea Current Visit: Yes Status: Acute Assessment and plan: Abdominal CT shows colitis. Patient has abdominal pain, leukocytosis, diarrhea - Place patient on clear liquid diet, IV fluid - Continue Levaquin and Flagyl IV - GI stool panel to rule out Salmonella and C. difficile infection - Consult GI for further management as patient has persistent symptoms 01/30-patient is now positive for Clostridium differential is toxin type B. Started oral vancomycin 4 times a day. I will also consult infectious disease for input. Patient has multiple risk factors for C. difficile including recent antibiotic use(first for Salmonella and then for diverticulitis) and also has prolonged history of a PPI use given her GERD history. I am going to change her from Protonix to Zantac for now and I will also instructed her to discuss this with her primary kinesiology professor as an outpatient. I will also get an opinion from gastroenterology while the patient is in-house. (3) DVT prophylaxis Current Visit: No Status: Acute Assessment and plan: Heparin subcutaneously - Time Spent With Patient Total time spent is greater than 50% in coordination of care (as documented) at patient's floor/unit and/or counseling patient: Greater than 35 minutes - Subjective Interval history: Patient is doing a little bit better than yesterday. She still continues to have diarrhea and has had 2 episodes of early this morning. She claims that she had approximately 10 diarrheal episodes since yesterday. She had abdominal pain yesterday but today she denies having any. - Constitutional Vitals: Temp Pulse Resp BP Pulse Ox 97.9 F 67 16 100/62 95 01/30/18 11:35 01/30/18 11:35 01/30/18 11:35 01/30/18 11:35 01/30/18 11:35 General appearance: Present: A&O X 3, no acute distress, answers questions appropriately Exam: GENERAL: Alert, moderate distress, cooperative EYES: PERRLA, EOMI EARS: External ears normal, canals clear OROPHARYNX: Lips, mucosa, and tongue normal. Teeth and gums normal. Oropharynx normal. NECK: No jugulovenous distention, No carotid bruits, Carotid pulse normal contour, Supple LUNGS: Lungs clear to auscultation, Good diaphragmatic excursion CARDIAC: Normal S1 and S2; no rubs, murmurs, or gallops ABDOMEN: Abdomen soft, mild tenderness to palpation diffusely. No guarding no rigidity Rest of the exam is non contributory Internal Medicine: Result - Labs CBC & Chem 7: 01/30/18 04:22 01/30/18 04:22 Labs: Short CBC 01/30/18 Range/Units 04:22 WBC 11.4 H (4.3-11.1) K/mcL Hgb 9.7 L D (11.5-15.4) g/dL Hct 29.9 L (35.3-44.9) % Plt Count 289 (140-400) K/mcL Neutrophils # 8.9 (1.6-8.9) K/mcL BMP 01/30/18 04:22 Sodium 138 Potassium 3.6 Chloride 115 H Carbon Dioxide 15 L BUN 33 H Creatinine 3.24 H Glucose 116 H Calcium 8.2 L Consult Discharge Plan - Plan Referrals: Aranza Ring [Primary Care Provider] -
[2018-01-30] MEDS: Vancomycin Oral Soln 125 MG/2.5 ML UDC PO SCH ×3 (13:24→21:48)
--- NOTE | 2018-01-30 13:51 | Gastroenterology Consult Note ---
Date of Encounter: 01/30/18 Time of Encounter: 13:50 - Assessment and plan (1) C. difficile diarrhea Current Visit: Yes Status: Acute Assessment and plan: - Recurrent diarrhea with reported 15 bowel movements per day watery and nonbloody - GI panel is obtained this facility shows Clostridium difficile positive PCR - Likely etiology of multiple antibiotics including Cipro, Flagyl, Rocephin, acyclovir for infections of diverticulitis and salmonella bacteremia previous admissions. Plan - Okay to continue PPI as outpatient given history of Ellington's esophagus - Continue vancomycin orally - Recommending starting probiotic lactobacillus twice a day - We will start Cholestyramine 4 g daily at bedtime - Supportive care including fluid resuscitation and diet as tolerated. - Contact precautions (2) Salmonella enteritis Current Visit: No Status: Resolved (3) Sigmoid diverticulitis Current Visit: No Status: Resolved Assessment and plan: - Resolved at last admission - monitor - Time Spent With Patient Total time spent is greater than 50% in coordination of care (as documented) at patient's floor/unit and/or counseling patient: GI History of Present Illness - Data of Consult Consult date: 01/30/18 Requesting Physician: Talon Santos - Consult Narrative Reason for consult: Diarrhea History of present illness: Ms. Deleon is a 62 year old female with past medical history of asthma, Ellington' s esophagus, hyperlipidemia, hypertension, diverticulosis, CKD IV, anxiety, depression presents to emergency room with complaint of diarrhea. She states that she was discharged from this facility in December for diverticulitis and has had persistent diarrhea ever since. She states that she has 10-15 bowel movements per day all of which are watery without evidence of blood. She does see as an outpatient for her Ellington's esophagus. She was also notably treated for salmonella bacteremia in November 2017 which was treated with ceftriaxone and acyclovir. She admits to associated periumbilical abdominal pain and nausea without vomiting. She states she still has an appetite and has been taking in clear liquids. During course of hospital stay, CT scan shows colitis and laboratory results were significant for acute kidney injury as well as positive C. difficile toxin on GI panel. She was started on oral vancomycin. Most recent EGD on 07/11/15 showed choledocholithiasis status post complete removal by biliary sphincterotomy and balloon extraction. Ellington's esophagus was noted on endoscopy on 06/11/15. Past Med Surg Social Fam HX - Past Medical History Medical history: asthma, GERD, hyperlipidemia, hypertension, renal disease, other Additional medical history: diverticulitis Psychiatric history: anxiety, depression - Past Surgical History Surgical History: appendectomy, cholecystectomy, herniorrhaphy Additional surgical history: bilateral knees - Social History Smoking Status: Never smoker Smokeless Tobacco Status: No Alcohol use: none Drug use: none - Family History Mother Living Status: Still Living Hx Family Cardiac Disorders: Yes (CABG) Hx Family Neurologic Disorders: Yes (DEMENTIA) Father Living Status: - Gastrointestinal Gastrointestinal: Present: abdominal pain, bloating, change in bowel habits, diarrhea. Absent: coffee ground emesis, constipation, heartburn, hematemesis, hematochezia, melena, nausea, vomiting - Constitutional Constitutional: no fever(s) - Cardiovascular Cardiovascular ROS: Absent: chest pain - Respiratory Respiratory IM: Absent: dyspnea - Constitutional Vitals: Temp Pulse Resp BP Pulse Ox 97.9 F 67 16 100/62 95 01/30/18 11:35 01/30/18 11:35 01/30/18 11:35 01/30/18 11:35 01/30/18 11:35 Exam: Gen.: Vitals noted. No acute distress. AAOx3, resting comfortably in bed HEENT: PERRL/EOMI, oropharynx clear, Normocephalic, atraumatic, MMM Cardiac: RRR, no murmur, +S1/S2 Pulmonary: CTA bilaterally, no wheezes, rales or rhonchi, equal chest expansion Abdomen: soft, mildly tender to palpation in the periumbilical region., BS noted , no guarding, no rebound. Extremities: no BLE edema, nontender calf, no cyanosis or clubbing Neuro: A&Ox3, moves all extremities, no focal deficits Psych: Appropriate mood and behavior Results - Labs CBC & Chem 7: 01/30/18 04:22 01/30/18 04:22 Labs: Last Result Calcium 8.2 mg/dL (8.6-10.3) L 01/30/18 04:22 Entire Visit Hgb 9.7 g/dL (11.5-15.4) L D 01/30/18 04:22 Hct 29.9 % (35.3-44.9) L 01/30/18 04:22 Total Bilirubin 0.3 mg/dL (0.3-1.0) 01/29/18 14:52 AST 5 Units/L (13-39) L 01/29/18 14:52 ALT 5 Units/L (7-52) L 01/29/18 14:52 Lipase < 3 Units/L (11-82) L 01/29/18 14:52 Consult Discharge Plan - Plan Referrals: Aranza Ring [Primary Care Provider] -
--- NOTE | 2018-01-30 14:10 | Infectious Disease Consult ---
Date of Encounter: 01/31/18 Time of Encounter: 14:08 Infectious Disease HPI - Data of Consult Patient: known to practice within the last 3 years Consult date: 01/30/18 Requesting Physician: Talon Santos Primary Care Provider: Aranza Ring - Consult Narrative Reason for consult: C. diff History of present illness: Ms. Deleon is a 62 year old female kidney disease stage IV, salmonella enteritis , and diverticulitis. The patient was omitted to the hospital January 29 for abdominal pain and diarrhea. We are consulted January 30 for further recommendations for C. difficile colitis. Briefly, the patient's a 62-year-old female with past medical history as stated above. The patient was admitted to the hospital on the day of admission after she presented to the ER with complaints of persistent diarrhea since October when she was admitted to the hospital and diagnosed with Salmonella enteritis. She was treated with a 14 day course of Cipro. She states her symptoms improved, but she continued to have loose stools. She was hospitalized again on December 22 for diverticulitis and treated with 14 days of LEvaquin and Flagyl. She states her abdominal pain improved, but she continued to have diarrhea. She reports acute worsening of her diarrhea a few days before she was admitted. She reports multiple mucousy, watery stools every 30 minutes to one hour around the clock and generally feeling unwell. Upon arrival to the ER, she was afebrile and hemodynamically stable. She had leukocytosis with neutrophilic predominance and an JEFF with serum creatinine 3.79. Urinalysis wative. CT of the abdomen and pelvis showed findings consistent with colitis of the cecum and ascending colon. She was started on Levaquin and Flagyl and admitted to the hospital for further evaluation. Since admission, the patient's WBC has improved. She has remained afebrile and hemodynamically stable. Her GI panel came back positive for C. diff. She was started on PO Vancomycin and C. diff precautions were instituted. We've been asked to evaluate and make further recommendations. During my exam today, the patient endorses the history as stated above. She reports generalized fatigue and malaise, but denies fevers, chills, or rigors. Denies headache or neck pain. Denies congestion, earache, or sore throat. Denies chest pain, shortness of breath, or cough. Denies nausea or vomiting, but states her appetite has been poor. She reports the diarrhea is frequent, mucousy, watery, and non-bloody. She reports the abdominal pain was mainly around the umbilicus and radiated to the right side of the abdomen. She states her abdominal pain has improved and she has had three bowel movements so far today. She denies urinary complaints, back/flank pain, or joint pain. She denies oral thrush or skin lesions. The patient lives at home with her and granddaughter. She denies tobacco , alcohol, or illicit drug use. She denies any ill contacts. She denies any recent travel. CC: Talon Santos Past Med Surg Social Fam HX - Past Medical History Attestation: Yes The following information was validated with the patient. Source: patient, old records reviewed, nursing notes reviewed Medical history: asthma, GERD, hyperlipidemia, hypertension, renal disease, other Additional medical history: diverticulitis Psychiatric history: anxiety, depression - Past Surgical History Surgical History: appendectomy, cholecystectomy, herniorrhaphy Additional surgical history: bilateral knees - Social History Smoking Status: Never smoker Smokeless Tobacco Status: No Alcohol use: none Drug use: none Occupational status: unemployed Current living situation: Home - Independent Activity Level: Independent ambulation Recent Out of Country Travel Within the Last 8 Weeks: No Exposure or Possible Exposure to Illness During Travel: No - Family History Mother Living Status: Still Living Hx Family Cardiac Disorders: Yes (CABG) Hx Family Neurologic Disorders: Yes (DEMENTIA) Father Living Status: Infectious Disease-CN:Meds Albuterol Sulfate [Ventolin Hfa] 2 puff IH Q4-6H PRN 01/20/17 [History] Ascorbic Acid [Vitamin C] 500 mg PO DAILY 01/20/17 [History] Bupropion HCl [Wellbutrin Xl] 300 mg PO DAILY 01/20/17 [History] Cholecalciferol (Vitamin D3) [Vitamin D3] 5,000 unit PO DAILY 01/20/17 [History] Cyanocobalamin (Vitamin B-12) [Vitamin B12] 1,000 mcg PO DAILY 01/20/17 [History ] Folic Acid 1 mg PO DAILY 01/20/17 [History] Gabapentin [Neurontin] 600 mg PO HS 03/16/17 [History] Trazodone HCl 100 mg PO HS 04/22/17 [History] Iron Ag,Ps/C/Fa6/B12/Zn/SA/Sto [Niferex Tablet] 1 each PO DAILY 11/06/17 [ History] Mometasone/Formoterol [Dulera 200 Mcg/5 Mcg Inhaler] 2 puff IH BID 11/07/17 [ History] Paroxetine [Paxil] 30 mg PO DAILY 12/18/17 [History] Calcitriol [Rocaltrol] 0.25 mcg PO DAILY 01/30/18 [History] Dicyclomine [Bentyl] 10 mg PO QID 01/30/18 [History] Acetaminophen [Tylenol] 650 mg PO Q6HR PRN tablet 01/31/18 [Rx] Famotidine [Pepcid] 20 mg PO HS tablet 01/31/18 [Rx] Lactobacillus [Culturelle] 1 each PO BID cap.sprink 01/31/18 [Rx] Vancomycin Oral Soln [Firvanq] 125 mg PO QID 12 Days #120 ml 01/31/18 [Rx] 3 Allergy/AdvReac Type Severity Reaction Status Date / Time codeine AdvReac Nausea Verified 12/18/17 14:53 morphine AdvReac Nausea Verified 12/18/17 14:53 Penicillins [PCN] AdvReac Rash Verified 12/18/17 14:53 Sulfa (Sulfonamide AdvReac Rash Verified 12/18/17 14:53 Antibiotics) All systems: reviewed and no additional remarkable complaints except as stated Exam - Constitutional Vitals: Temp Pulse Resp BP Pulse Ox 97.9 F 67 16 100/62 95 01/30/18 11:35 01/30/18 11:35 01/30/18 11:35 01/30/18 11:35 01/30/18 11:35 General appearance: average body habitus, cooperative, no acute distress - Head Head exam: Present: atraumatic, normal inspection, normocephalic - Eye Eye exam: Present: EOMI, normal appearance, PERRL Pupils: Present: normal accommodation - ENT ENT exam: Present: mucous membranes moist - Neck Neck exam: Present: normal inspection - Respiratory Respiratory exam: Present: CTAB. Absent: rales, respiratory distress, rhonchi, wheezes - Cardiovascular Cardiovascular exam: Present: RRR, +S1, +S2 - GI/Abdominal GI/Abdominal exam: Present: normal bowel sounds, soft. Absent: distended, tenderness - Extremities Exam Extremities exam: Present: normal inspection. Absent: joint swelling, pedal edema, tenderness - Neurological Exam Neurological exam: Present: alert, oriented X3, no focal deficits - Psychiatric Psychiatric exam: Present: normal affect, normal mood - Skin Skin exam: Present: dry, intact, normal color, warm Infectious Disease CN: Results - Labs CBC & Chem 7: 01/31/18 05:26 01/31/18 05:26 Serology: Serology 01/30/18 01/30/18 Range/Units 05:35 05:35 Stl C. cayetanensis PCR Not detected (Not detect) Stool Rotavirus A PCR Not detected (Not detect) Stl Adenov F 40/41 PCR Not detected (Not detect) Stool Astrovirus (PCR) Not detected (Not detect) Stool Campylobacter PCR Not detected (Not detect) Stl C. diff Tox B Gene Positive (Negative) Stl C. diff Tox A/B PCR See reflex test A (Not detect) Stool Cryptosporidium PCR Not detected (Not detect) Stl Sh Tox Pr E STEC PCR Not detected (Not detect) Stool E coli O157 PCR Not detected (Not detect) Stl Enterotoxigenic E PCR Not detected (Not detect) Stool EPEC (PCR) Not detected (Not detect) Stool EAEC (PCR) Not detected (Not detect) Stl E. histolytica PCR Not detected (Not detect) Stool Giardia Lamblia PCR Not detected (Not detect) Stool Salmonella PCR Not detected (Not detect) Stool Sapovirus (PCR) Not detected (Not detect) Stl P. shigelloides PCR Not detected (Not detect) Stl Shigella/EIEC PCR Not detected (Not detect) St Y.enterocolitica PCR Not detected (Not detect) Stool Vibrio (PCR) Not detected (Not detect) Stl Vibrio cholerae PCR Not detected (Not detect) Stl Norovirus GI/GII PCR Not detected (Not detect) Stl GI Panel (PCR) Com See below Consult Discharge Plan - Plan Instructions: Clostridium Difficile Infection (DC) Referrals: Aranza Ring [Primary Care Provider] - 02/20/18 12:30 pm Prescriptions: Vancomycin Oral Soln [Firvanq] 125 mg PO QID 12 Days #120 ml - Attending Attestation I examined this patient and my medical decision-making was reviewed with the Resident Physician. I agree with the documented findings, disposition and treatment plan as described except to the extent set forth below. This is an addendum to original report dictated by Becky Hou CNP. Please refer to Becky's note for full detail. Patient is a 59-year-old woman with past medical history mentioned below was admitted to the hospital with severe diarrhea. Patient is well-known to our service and was treated with Bactrim days for salmonella. Patient also has multiple drug allergies. Patient was noted to have C. difficile colitis with that was severe with WBC of 15,000 and elevated serum creatinine. CT of the pelvis was done use colitis of the cecum and ascending colon. Patient has been on vancomycin and levofloxacin and Flagyl. At this point we will DC the levofloxacin and Flagyl and continue oral vancomycin to finish a 14 day course. Juhi might benefit from probiotics.
[2018-01-30] MEDS ORDERED: traZODone 50 MG TABLET PO SCH (21:00)
[2018-01-30] MEDS ORDERED: Famotidine 20 MG TABLET PO SCH (21:00)
[2018-01-30] MEDS: Cholestyramine 4 GM POWD.PACK PO SCH (21:44)
[2018-01-30] MEDS: Lactobacillus 1 EACH CAP.SPRINK PO SCH (21:45)
[2018-01-31] MEDS: Cholestyramine 4 GM POWD.PACK PO SCH (05:32)
[2018-01-31] MEDS: *HR* Heparin 5,000 UNIT/ML VIAL SQ SCH (05:34)
[2018-01-31 05:40] LABS: Basophils # 0.1 K/mcL (0.0-0.2); Eosinophils # 0.2 K/mcL (0.0-0.6); Eosinophils % 2.7 %; Hematocrit 31.5 % (35.3-44.9); Hemoglobin 9.9 g/dL (11.5-15.4); Immature Granulocytes % 0.6 % (0-4); Lymphocytes # 1.5 K/mcL (0.6-4.6); Lymphocytes % 22.5 %; Mean Corpuscular HGB Conc 31.4 g/dL (31.6-35.5); Mean Corpuscular Volume 92.4 fL (83.0-100.0); Mean Platelet Volume 9.2 fL (9.4-12.4); Monocytes # 0.7 K/mcL (0.0-1.3); Monocytes % 9.9 %; Neutrophils # 4.3 K/mcL (1.6-8.9); Platelet Count 313 K/mcL (140-400); Red Blood Count 3.41 M/mcL (3.82-4.97); Red Cell Distribution Width 13.3 % (11.5-14.5); Segmented Neutrophils % 63.3 %
[2018-01-31 06:02] LABS: Albumin 3.2 g/dL (3.5-5.7); Albumin/Globulin Ratio 1.7 (1.1-2.2); Bilirubin,Total 0.3 mg/dL (0.3-1.0); Calcium 8.7 mg/dL (8.6-10.3); Globulin 1.9 g/dL (2.4-3.5); Potassium 3.5 mEq/L (3.5-5.1); Total Protein 5.1 g/dL (6.4-8.9)
[2018-01-31] MEDS: Budesonide/Formoterol 160/4.5 MDI IH SCH (07:45)
[2018-01-31] MEDS: Lactobacillus 1 EACH CAP.SPRINK PO SCH (08:56)
[2018-01-31] MEDS: Vancomycin Oral Soln 125 MG/2.5 ML UDC PO SCH ×2 (08:58→13:19)
[2018-01-31] MEDS ORDERED: Cyanocobalamin (B-12) 1,000 MCG TABLET PO SCH (09:00)
[2018-01-31] MEDS ORDERED: Folic Acid 1 MG TABLET PO SCH (09:00)
[2018-01-31] MEDS ORDERED: Cholecalciferol (D-3) 1,000 UNIT TABLET PO SCH (09:00)
[2018-01-31] MEDS ORDERED: BuPROPion XL (24 HR) 150 MG TABLET PO SCH (09:00)
[2018-01-31 10:48] VITALS: BP 103/77
--- NOTE | 2018-01-31 11:26 | Discharge Summary ---
- NOTES TO OUTPATIENT PROVIDER Notes to Outpatient Provider: Patient has been diagnosed with a new diagnosis of C. difficile diarrhea. She needs to follow up with her primary care physician in a week and also needs a follow-up with gastroenterology because I have switched her from PPI to H2 blockers for GERD. Date of Encounter: 01/31/18 Time of Encounter: 11:24 - Discharge Diagnosis (1) C. difficile diarrhea Priority: Primary Status: Acute (2) Salmonella enteritis Priority: Secondary Status: Resolved (3) Sigmoid diverticulitis Priority: Secondary Status: Resolved Hospital course: Ms. Deleon is a 62 year old female who was admitted with diarrhea and abdominal discomfort and was diagnosed to have C. difficile diarrhea. The patient has previously received and hepatic course for salmonella as well as diverticulitis. These are most likely predisposing conditions for her to having a C. difficile diarrhea at this visit. She also has been on long-term PPI given her chronic gastroparesis with reflux disease and this may also be an underlying factor. I have switched her from PPI to H2 blockers and she was positive for C. difficile type B toxin. She will need a total of 14 days of duration for C. difficile and needs to follow up with her primary care physician and gi specialist outpatient basis. Discharge discussed with: patient - Time Spent with Patient Total time spent providing and/or coordinating discharge services: Greater than 30 minutes - Discharge Medications Prescriptions: Vancomycin Oral Soln [Firvanq] 125 mg PO QID 12 Days #120 ml Home Medications: Albuterol Sulfate [Ventolin Hfa] 2 puff IH Q4-6H PRN 01/20/17 [History] Ascorbic Acid [Vitamin C] 500 mg PO DAILY 01/20/17 [History] Bupropion HCl [Wellbutrin Xl] 300 mg PO DAILY 01/20/17 [History] Cholecalciferol (Vitamin D3) [Vitamin D3] 5,000 unit PO DAILY 01/20/17 [History] Cyanocobalamin (Vitamin B-12) [Vitamin B12] 1,000 mcg PO DAILY 01/20/17 [History ] Folic Acid 1 mg PO DAILY 01/20/17 [History] Gabapentin [Neurontin] 600 mg PO HS 03/16/17 [History] Trazodone HCl 100 mg PO HS 04/22/17 [History] Iron Ag,Ps/C/Fa6/B12/Zn/SA/Sto [Niferex Tablet] 1 each PO DAILY 11/06/17 [ History] Mometasone/Formoterol [Dulera 200 Mcg/5 Mcg Inhaler] 2 puff IH BID 11/07/17 [ History] Paroxetine [Paxil] 30 mg PO DAILY 12/18/17 [History] Calcitriol [Rocaltrol] 0.25 mcg PO DAILY 01/30/18 [History] Dicyclomine [Bentyl] 10 mg PO QID 01/30/18 [History] Acetaminophen [Tylenol] 650 mg PO Q6HR PRN tablet 01/31/18 [Rx] Famotidine [Pepcid] 20 mg PO HS tablet 01/31/18 [Rx] Lactobacillus [Culturelle] 1 each PO BID cap.sprink 01/31/18 [Rx] Vancomycin Oral Soln [Firvanq] 125 mg PO QID 12 Days #120 ml 01/31/18 [Rx] hydrALAZINE [HydrALAZINE] 10 mg IVP Q6HR PRN vial 01/31/18 [Rx] Allergies/Adverse Reactions: 3 Allergy/AdvReac Type Severity Reaction Status Date / Time codeine AdvReac Nausea Verified 12/18/17 14:53 morphine AdvReac Nausea Verified 12/18/17 14:53 Penicillins [PCN] AdvReac Rash Verified 12/18/17 14:53 Sulfa (Sulfonamide AdvReac Rash Verified 12/18/17 14:53 Antibiotics) Date of admission: 01/29/18 19:55 Primary care physician: Aranza Ring Consults: 01/29/18 20:00 Consult to Gastroenterology [CONS] Routine Consulting Provider: Gastroenterology [facility] Reason for Consult: Chronic diarrhea, colitis Call Completed: No 01/30/18 10:54 Consult to Infectious Diseases [CONS] Routine Consulting Provider: Infectious Disease [place] Reason for Consult: CDAD . Hx of Salmonella Time Notified: 10:55 Call Completed: Yes - Constitutional Vitals: Temp Pulse Resp BP Pulse Ox 97.9 F 62 16 103/77 94 01/31/18 10:47 01/31/18 10:47 01/31/18 10:47 01/31/18 10:47 01/31/18 10:47 General appearance: Present: A&O X 3, no acute distress, answers questions appropriately Exam: GENERAL: Alert, no distress, cooperative EYES: PERRLA, EOMI EARS: External ears normal, canals clear OROPHARYNX: Lips, mucosa, and tongue normal. Teeth and gums normal. Oropharynx normal. NECK: No jugulovenous distention, No carotid bruits, Carotid pulse normal contour, Supple LUNGS: Lungs clear to auscultation, Good diaphragmatic excursion CARDIAC: Normal S1 and S2; no rubs, murmurs, or gallops ABDOMEN: Abdomen soft, non-tender, BS normal, No masses or organomegaly EXTREMITIES: Extremities normal, no deformities, edema, clubbing or skin discoloration. Good capillary refill., No ulcers NEURO: Gait normal. Reflexes normal and symmetric. Sensation grossly intact, Cranial nerves II-XII intact PULSES: 2+ radial, 2+ carotid Rest of the exam is non contributory - Patient Status Disposition: Home, Self-Care Condition: Good Functional capacity at discharge: independent ambulation Overall status at discharge: patient is progressing back to baseline - Discharge Instructions Follow Up With: Aranza Ring [Primary Care Provider] - - Diet and Activity Activity: increase activity as tolerated Diet: advance to your usual diet
--- NOTE | 2018-01-31 14:04 | Infectious Disease Progress No ---
Date of Encounter: 01/31/18 Time of Encounter: 10:10 - Subjective Interval history: Patient seen and examined. No acute events noted overnight. Patient states she feels better this morning. Denies fevers, chills, or rigors. Denies chest pain, shortness of breath, or cough. Denies nausea, vomiting, or abdominal pain. Reports 5 loose stools yesterday, two today, but states they are more formed. Denies urinary complaints and states her appetite is better. Denies oral thrush or new skin lesions. Infect Dis PN-Objective Data - Labs CBC & Chem 7: 01/31/18 05:26 01/31/18 05:26 Labs: Laboratory Results - last 24 hr 01/31/18 01/31/18 05:26 05:26 WBC 6.8 RBC 3.41 L Hgb 9.9 L Hct 31.5 L MCV 92.4 MCH 29.0 MCHC 31.4 L RDW 13.3 Plt Count 313 MPV 9.2 L Immature Gran % 0.6 Seg Neutrophils % 63.3 Lymphocytes % 22.5 Monocytes % 9.9 Eosinophils % 2.7 Basophils % 1.0 Neutrophils # 4.3 Lymphocytes # 1.5 Monocytes # 0.7 Eosinophils # 0.2 Basophils # 0.1 Sodium 142 Potassium 3.5 Chloride 117 H Carbon Dioxide 18 L BUN 25 H Creatinine 2.66 H Est GFR ( Amer) 22 L Est GFR (Non-Af Amer) 18 L BUN/Creatinine Ratio 9 Glucose 111 H Calculated Osmolality 299 Calcium 8.7 Total Bilirubin 0.3 AST 6 L ALT 3 L Alkaline Phosphatase 53 Serum Total Protein 5.1 L Albumin 3.2 L Globulin 1.9 L Albumin/Globulin Ratio 1.7 Cultures: Serology 01/30/18 01/30/18 Range/Units 05:35 05:35 Stl C. cayetanensis PCR Not detected (Not detect) Stool Rotavirus A PCR Not detected (Not detect) Stl Adenov F 40/41 PCR Not detected (Not detect) Stool Astrovirus (PCR) Not detected (Not detect) Stool Campylobacter PCR Not detected (Not detect) Stl C. diff Tox B Gene Positive (Negative) Stl C. diff Tox A/B PCR See reflex test A (Not detect) Stool Cryptosporidium PCR Not detected (Not detect) Stl Sh Tox Pr E STEC PCR Not detected (Not detect) Stool E coli O157 PCR Not detected (Not detect) Stl Enterotoxigenic E PCR Not detected (Not detect) Stool EPEC (PCR) Not detected (Not detect) Stool EAEC (PCR) Not detected (Not detect) Stl E. histolytica PCR Not detected (Not detect) Stool Giardia Lamblia PCR Not detected (Not detect) Stool Salmonella PCR Not detected (Not detect) Stool Sapovirus (PCR) Not detected (Not detect) Stl P. shigelloides PCR Not detected (Not detect) Stl Shigella/EIEC PCR Not detected (Not detect) St Y.enterocolitica PCR Not detected (Not detect) Stool Vibrio (PCR) Not detected (Not detect) Stl Vibrio cholerae PCR Not detected (Not detect) Stl Norovirus GI/GII PCR Not detected (Not detect) Stl GI Panel (PCR) Com See below Exam - Constitutional Vitals: Temp Pulse Resp BP Pulse Ox 97.9 F 62 16 103/77 94 01/31/18 10:47 01/31/18 10:47 01/31/18 10:47 01/31/18 10:47 01/31/18 10:47 General appearance: cooperative, no acute distress, obese - Head Head exam: Present: atraumatic, normal inspection, normocephalic - Eye Eye exam: Present: EOMI, normal appearance, PERRL Pupils: Present: normal accommodation - ENT ENT exam: Present: mucous membranes moist - Neck Neck exam: Present: normal inspection - Respiratory Respiratory exam: Present: CTAB. Absent: rales, respiratory distress, rhonchi, wheezes - Cardiovascular Cardiovascular exam: Present: RRR, +S1, +S2 - GI/Abdominal GI/Abdominal exam: Present: normal bowel sounds, soft. Absent: distended, tenderness - Extremities Exam Extremities exam: Present: normal inspection. Absent: joint swelling, pedal edema, tenderness - Neurological Exam Neurological exam: Present: alert, oriented X3, no focal deficits - Psychiatric Psychiatric exam: Present: normal affect, normal mood - Skin Skin exam: Present: dry, intact, normal color, warm Consult Discharge Plan - Plan Instructions: Clostridium Difficile Infection (DC) Referrals: Aranza Ring [Primary Care Provider] - 02/20/18 12:30 pm Prescriptions: Vancomycin Oral Soln [Firvanq] 125 mg PO QID 12 Days #120 ml - Attending Attestation I examined this patient and my medical decision-making was reviewed with the Resident Physician. I agree with the documented findings, disposition and treatment plan as described except to the extent set forth below.
[2018-01-31] MEDS ORDERED: Levofloxacin 500 MG/100 ML 500 MG/100 ML BAG IVPB SCH (19:00)
== END 2018-01-31 14:11 | disposition home or self-care (01) | DRG 248 ==
LOC: 3ANU 13:54 → EMEROO 13:54 → SUATTDRO 19:55 → 3ANU 20:02
PROVIDERS: ADMIT Internal Medicine Nephrology; ATTEND Internal Medicine

== ENCOUNTER 2018-05-09 13:34 | Inpatient (IN) ==
[2018-05-09] MEDS ORDERED: 0.9 % Sodium Chloride 1,000 ML ONE ×3 (13:47→15:33)
[2018-05-09] MEDS ORDERED: 0.9 % Sodium Chloride 1,000 ML IVC ONE ×4 (13:53→18:31)
[2018-05-09] MEDS ORDERED: Isovue-370 500 ML INFUS..BTL IV ONE (14:04)
[2018-05-09 14:14] LABS: Hematocrit 44.7 % (35.3-44.9); Hemoglobin 13.8 g/dL (11.5-15.4); Mean Corpuscular HGB Conc 30.9 g/dL (31.6-35.5); Mean Corpuscular Hemoglobin 29.2 pg (28.0-33.3); Mean Corpuscular Volume 94.7 fL (83.0-100.0); Mean Platelet Volume 9.7 fL (9.4-12.4); Platelet Count 388 K/mcL (140-400); Red Blood Count 4.72 M/mcL (3.82-4.97); Red Cell Distribution Width 12.9 % (11.5-14.5)
[2018-05-09] MEDS ORDERED: Ondansetron 4 MG/2 ML VIAL IVP ONE ×2 (14:16→14:46)
[2018-05-09 14:19] LABS: INR 1.1; Prothrombin Time 12.1 Seconds (9.4-12.1)
[2018-05-09 14:22] LABS: Activated Partial Thrombo Time 29.4 Seconds (26.0-36.0)
[2018-05-09 14:33] LABS: Troponin I < 0.03 ng/mL (< 0.04)
[2018-05-09 14:37] LABS: BUN/Creatinine Ratio 10 (6-26); Blood Urea Nitrogen 28 mg/dL (8-23); Calcium 8.7 mg/dL (8.6-10.3); Carbon Dioxide 14 mEq/L (23-29); Chloride 113 mEq/L (98-107); Glucose 150 mg/dL (70-105); Osmolality,Calculated 294 (280-300); Potassium 4.8 mEq/L (3.5-5.1); Sodium 138 mEq/L (136-145); eGFR For Non-African Americans 17 (> 60)
[2018-05-09] MEDS ORDERED: Ondansetron 4 MG/2 ML VIAL ONE (14:47)
[2018-05-09] MEDS ORDERED: Hydrocortisone Sodium Succ 100 MG/2 ML VIAL ONE (14:58)
[2018-05-09] MEDS ORDERED: Hydrocortisone Sodium Succ 100 MG/2 ML VIAL IVP ONE (15:00)
[2018-05-09 15:09] LABS: Lymphocytes # 4.8 K/mcL (0.6-4.6); Neutrophils # 1.5 K/mcL (1.6-8.9); Platelet Estimate Normal (Normal); Reactive Lymphocytes Present (Not Present)
[2018-05-09] MEDS ORDERED: *HR* Promethazine 25 MG/ML VIAL ONE (15:09)
[2018-05-09] MEDS: *HR* Promethazine 25 MG/ML VIAL IVP ONE ×2 (15:12→15:13)
[2018-05-09] MEDS: Norepinephrine 4 MG in D5% in Water 250 ML IVC SCH ×2 (15:28→20:54)
[2018-05-09] MEDS ORDERED: 0.9 % Sodium Chloride 500 ML IVC ONE (15:36)
[2018-05-09] MEDS ORDERED: MetroNIDAZOLE 500 MG/100 ML 500 MG/100 ML BAG IVPB ONE (15:58)
[2018-05-09] MEDS ORDERED: Levofloxacin 750 MG/150 ML 750 MG/150 ML BAG IVPB ONE (15:58)
[2018-05-09] MEDS ORDERED: Vancomycin Oral Soln 125 MG/2.5 ML UDC PO ONE (15:59)
[2018-05-09] MEDS: Dexmedetomidine HCl 400 MCG/100 ML MLS IVC SCH (16:00)
[2018-05-09 16:18] LABS: ABG Base Excess -14 mEq/L (-2 to 3); ABG HCO3 14 mEq/L (21-27); ABG Oxygen Saturation 97 % (95-98); ABG PCO2 41 mmHg (35-45); ABG PH 7.14 pH Units (7.32-7.45); ABG PO2 121 mmHg (85-104); ABG TCO2 15 mEq/L (20-26); Blood Gas Modality ASSIST CONTROL; Blood Gas PEEP 5 cm H2O; Blood Gas Respiration Rate 12; Blood Gas VT 550 cc
[2018-05-09 16:29] LABS: VBG HCO3 10 mEq/L (21-27); VBG PCO2 38 mmHg (41-51); VBG PH 7.01 pH Units (7.32-7.42); VBG PO2 210 mmHg (25-50)
--- NOTE | 2018-05-09 16:32 | Emergency Department Note ---
Disposition Clinical Impression: Septic shock, Elevated lactic acid level, Metabolic acidosis Altered mental status Qualifiers: Altered mental status type: unspecified Qualified Code(s): R41.82 - Altered mental status, unspecified Diarrhea Qualifiers: Diarrhea type: unspecified type Qualified Code(s): R19.7 - Diarrhea, unspecified Dyspnea Qualifiers: Dyspnea type: shortness of breath Qualified Code(s): R06.02 - Shortness of breath Syncope Qualifiers: Syncope type: unspecified Qualified Code(s): R55 - Syncope and collapse Chronic kidney disease Qualifiers: Chronic kidney disease stage: unspecified stage Qualified Code(s): N18.9 - Chronic kidney disease, unspecified Disposition: Admitted As Inpatient Condition: Serious General Adult HPI - General Chief complaint: ED General Medical Stated complaint: medical assist-with CP, SOB Time Seen by Provider: 05/09/18 13:37 Source: other Mode of arrival: wheelchair Limitations: altered mental status Nursing Notes Reviewed: Yes Vital Signs Reviewed: Yes - History of Present Illness HPI Narrative: 62-year-old female presents to the ER from outpatient surgery due to concern for syncopal episode. The patient was there for a thyroid biopsy. Apparently the procedure well without complication. After that the patient complained of chest pain or shortness of breath and and has syncopal episode. The patient was brought here for evaluation. Upon arrival the patient had some augmentation but was answering most questions appropriately. Her main complaint was she was having abdominal pain and felt like she had to have a bowel movement. Denied any chest pain on presentation. She was noted to have a marginal blood pressure here. The patient did have an episode of diarrhea that was rust colored here. at bedside reports she felt fine when she went to have her biopsy today. States that she is now not acting normal. 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 Denies: chest pain Treatments Prior to Arrival: none - Related Data Home Medications Medication Instructions Recorded Confirmed Albuterol Sulfate [Ventolin Hfa] 2 puff IH Q4-6H PRN 01/20/17 05/09/18 Ascorbic Acid [Vitamin C] 500 mg PO DAILY 01/20/17 05/09/18 Bupropion HCl [Wellbutrin Xl] 300 mg PO DAILY 01/20/17 05/09/18 Cholecalciferol (Vitamin D3) 5,000 unit PO DAILY 01/20/17 05/09/18 [Vitamin D3] Cyanocobalamin (Vitamin B-12) 1,000 mcg PO DAILY 01/20/17 05/09/18 [Vitamin B12] Folic Acid 1 mg PO DAILY 01/20/17 05/09/18 Gabapentin [Neurontin] 600 mg PO HS 03/16/17 05/09/18 Trazodone HCl 200 mg PO HS 04/22/17 05/09/18 Iron Ag,Ps/C/Fa6/B12/Zn/SA/Sto 1 each PO DAILY 11/06/17 05/09/18 [Niferex Tablet] Mometasone/Formoterol [Dulera 200 2 puff IH BID 11/07/17 05/09/18 Mcg/5 Mcg Inhaler] Paroxetine [Paxil] 30 mg PO DAILY 12/18/17 05/09/18 Calcitriol [Rocaltrol] 0.25 mcg PO DAILY 01/30/18 05/09/18 Dicyclomine [Bentyl] 20 mg PO QID 01/30/18 05/09/18 Lisinopril [Zestril] 20 mg PO DAILY 05/09/18 05/09/18 Previous Rx's Medication Instructions Recorded Famotidine [Pepcid] 20 mg PO HS tablet 01/31/18 Allergies Allergy/AdvReac Type Severity Reaction Status Date / Time codeine AdvReac Nausea Verified 12/18/17 14:53 morphine AdvReac Nausea Verified 12/18/17 14:53 Penicillins [PCN] AdvReac Rash Verified 12/18/17 14:53 Sulfa (Sulfonamide AdvReac Rash Verified 12/18/17 14:53 Antibiotics) All systems ED: reviewed and negative except as stated. Constitutional: Denies: fever Cardiovascular: Reports: chest pain (Previously) Respiratory: Reports: dyspnea Gastrointestinal: Reports: abdominal pain, nausea, vomiting, diarrhea Genitourinary: Denies: dysuria, hematuria Past Medical History - Past Medical History Attestation: Yes The following information was validated with the patient. Source: patient, old records reviewed, obtained from family Medical history: Reports: asthma, GERD, hyperlipidemia, hypertension, renal disease, other Surgical history: Reports: appendectomy, cholecystectomy, herniorrhaphy Psychiatric history: Reports: anxiety, depression [employer] history: Reports: bilateral tubal ligation - Social History Smoking Status: Never smoker Smokeless Tobacco Status: No Alcohol use: Reports: none Drug use: Reports: none Physical Exam - General Limitations: no limitations General appearance: alert, other (Somnolent) - Head Head exam: atraumatic, normocephalic - Eye Eye exam: Present: normal appearance - ENT ENT exam: normal exam - Neck Neck exam: Present: normal inspection - Chest Chest inspection: Present: normal inspection, symmetric chest wall rise - Respiratory Respiratory exam: Present: normal lung sounds bilaterally - Cardiovascular Cardiovascular exam: Present: regular rate, normal rhythm, normal heart sounds - Abdominal Exam Abdominal exam: Present: soft, tenderness (Mild suprapubic tenderness). Absent : distention, guarding, rigidity - Extremities Exam Extremities exam: Present: normal inspection, full ROM - Expanded Upper Extremity Exam Shoulder exam: Present: normal inspection, full ROM Arm exam: Present: normal inspection, full ROM Elbow exam: Present: normal inspection, full ROM Forearm/Wrist exam: Present: normal inspection, full ROM Hand exam: Present: normal inspection, full ROM - Expanded Lower Extremity Exam Hip/Pelvis exam: Present: normal inspection, full ROM Upper leg exam: Present: normal inspection, full ROM Knee exam: Present: normal inspection, full ROM Lower leg exam: Present: normal inspection, full ROM Ankle exam: Present: normal inspection, full ROM Foot/toe exam: Present: normal inspection, full ROM - Neurological Exam Neurological exam: Present: alert, other (GCS 14. No focal deficits.) - Skin Skin exam: Present: dry Course Course Narrative: Patient seen and examined. Vital signs reviewed. Plan for EKG, chest x-ray, labs including troponin. - Reevaluation(s) Reevaluation #1: Called to the room as the patient started vomiting. 1 L of fluids ordered as well as Zofran. Noted to be hypotensive 70 systolic. Has been at bedside states she was fine earlier today. She has had numerous episodes of diarrhea here. Reviewed her chart demonstrating that she has been admitted numerous times in the past for diverticulitis, Salmonella enteritis and C. difficile colitis. Unsure if she is currently on antibiotics. Reevaluation #2: The patient continues to have refractory shock despite 2 L of IV fluids. Additional liter ordered. Education is reviewed showing she is currently on steroids. Solu-Cortef given for stress dose steroids. Central line placed see documentation for details of procedure. The patient was in no state to provide consent. I discussed with the patient's significant other at bedside about risks and benefits. Verbalizes understanding and is in agreement. Reevaluation #3: The patient had worsening mental status, perioral cyanosis and increasing shortness of breath. The decision was made to intubate. Please see documentation procedure note. She was given an additional 500 mL bolus to make 3.5 and total as well as started on maintenance fluids and lever fed prior to intubation given her hypotension. At the time of intubation her systolic blood pressure had increased to 100. Vital Signs Temperature 97.7 F 05/09/18 13:37 Pulse Rate 95 05/09/18 13:37 Respiratory Rate 26 05/09/18 13:37 Blood Pressure 85/66 05/09/18 13:37 O2 Sat by Pulse Oximetry 90 05/09/18 13:37 Temperature 96.8 F L 05/09/18 19:00 Pulse Rate 56 05/09/18 18:46 Respiratory Rate 12 05/09/18 18:46 Blood Pressure 100/59 05/09/18 19:37 O2 Sat by Pulse Oximetry 100 05/09/18 19:37 Oxygen Delivery Oxygen Delivery Ventilator Procedures - Central Line Placement Left IJ Central Line Inserted*: Yes Central Line Insertion: emergent Consent Obtained: verbal consent Patient Placed on Monitor/Pulse Ox: Yes During the Procedure: clinician is wearing sterile gloves, cap, mask,& gown during insertion, sterile field and sterile technique are maintained, patient's face is covered with drape or mask and wearing a cap, everyone in room is wearing a mask Central Line Prep: Chlorhexidine scrub Prep the Procedure Site: apply chloraprep to the skin using a back and forth scrubbing motion, apply chloraprep for 30 seconds (upper body), 1-2 min ( femoral sites), allow prep to dry, drape the patient with a full body drape Local Anesthetic: lidocaine 1% Amount of anesthesia used (mL): 3 Ultrasound Used for Placement: Yes Central Line Lumen Inserted: triple Post Procedure: sutured in place, good blood return, all ports aspirated, flushed, capped, sterile dressing applied, guide wire removed and visualized Post Procedure X-Ray: tip of catheter in good position, no pneumothorax seen Patient Tolerated Procedure: well Complications: none Name of Clinician Inserting Central Line: Dr. Shahid - Intubation sedative: Etomidate Mg Given: 30 paralytic: Rocuronium Mg Given: 100 Laryngoscope: Kirsten ET Tube Size: 7.5 Tube Secured Depth (cm): 22 Tube Secured Location: lips Tube Placement Confirmation: visualized tube passing through cords, equal breath sounds bilaterally, no breath sounds over epigastrium, confirmation by capnometry Patient Tolerated Procedure: well Intubation Complications: none Medical Decision Making - MDM Narrative Medical decision making narrative: 62-year-old female presenting due to a possible syncopal episode an outpatient surgery. Presented after a thyroid biopsy. Upon arrival she was alert answering questions appropriately but not at her baseline mental status as per family. She did quickly evolved to have hypotension and worsening altered mental status and work of breathing. She had copious diarrhea while in the emergency department with what appears to be a history of enteritis and diverticulitis from salmonella and C. difficile colitis. Central line was placed as the patient had poor peripheral access. She received a total of 3.5 L of normal saline bolus with maintenance fluids initiated. She was also placed on Levaquin fed for intubation as she had worsening mental status and started vomiting here. Procedures performed without complication. Labs are grossly normal as per Baseline with chronic kidney disease. She does have a mildly elevated lactic acid which was repeated without change. She is noted to have a non-anion gap metabolic acidosis which in this case suggest GI losses. She was treated empirically with oral vancomycin as well as Levaquin and Flagyl. Blood pressure did improve with fluids and pressors. We added a dose of stress dose steroids with Solu-Cortef. Head CT without acute findings. CT of the abdomen and pelvis without acute findings. She is admitted to the hospitalist service to the intensive care unit in serious but stable condition. - Lab Data Lab results reviewed: Yes I reviewed the patient's lab results. Result diagrams: 05/09/18 13:59 05/09/18 16:41 Lab Results 05/09/18 05/09/18 05/09/18 Range/Units 13:57 13:59 13:59 WBC (4.3-11.1) K/mcL RBC (3.82-4.97) M/mcL Hgb (11.5-15.4) g/dL Hct (35.3-44.9) % MCV (83.0-100.0) fL MCH (28.0-33.3) pg MCHC (31.6-35.5) g/dL RDW (11.5-14.5) % Plt Count (140-400) K/mcL MPV (9.4-12.4) fL Seg Neutrophils % % Lymphocytes % % Neutrophils # (1.6-8.9) K/mcL Lymphocytes # (0.6-4.6) K/mcL Reactive Lymphocytes (Not Present) Platelet Estimate (Normal) PT 12.1 (9.4-12.1) Seconds INR 1.1 APTT 29.4 (26.0-36.0) Seconds Sample Site ABG pH (7.32-7.45) pH Units ABG pCO2 (35-45) mmHg ABG pO2 (85-104) mmHg ABG HCO3 (21-27) mEq/L ABG Total CO2 (20-26) mEq/L ABG O2 Saturation (95-98) % ABG Base Excess (-2 to 3) mEq/L VBG pH (7.32-7.42) pH Units VBG pCO2 (41-51) mmHg VBG pO2 (25-50) mmHg VBG HCO3 (21-27) mEq/L Respiration Rate O2 Delivery Device Blood Gas Modality Inspired O2 (1-15=lpm [id number]=%) Tidal Volume cc PEEP cm H2O Sodium (136-145) mEq/L Potassium (3.5-5.1) mEq/L Chloride (98-107) mEq/L Carbon Dioxide (23-29) mEq/L BUN (8-23) mg/dL Creatinine (0.60-1.20) mg/dL Est GFR ( Amer) (> 60) Est GFR (Non-Af Amer) (> 60) BUN/Creatinine Ratio (6-26) Glucose (70-105) mg/dL Calculated Osmolality (280-300) Lactic Acid 2.5 H (0.5-2.2) mmol/L Calcium (8.6-10.3) mg/dL Magnesium (1.6-2.6) mg/dL Troponin I (< 0.04) ng/mL B-Natriuretic Peptide 70 (Less than 100) pg/mL 05/09/18 05/09/18 05/09/18 Range/Units 13:59 13:59 16:13 WBC 6.3 (4.3-11.1) K/mcL RBC 4.72 (3.82-4.97) M/mcL Hgb 13.8 (11.5-15.4) g/dL Hct 44.7 (35.3-44.9) % MCV 94.7 (83.0-100.0) fL MCH 29.2 (28.0-33.3) pg MCHC 30.9 L (31.6-35.5) g/dL RDW 12.9 (11.5-14.5) % Plt Count 388 (140-400) K/mcL MPV 9.7 (9.4-12.4) fL Seg Neutrophils % 24.0 % Lymphocytes % 76.0 % Neutrophils # 1.5 L (1.6-8.9) K/mcL Lymphocytes # 4.8 H (0.6-4.6) K/mcL Reactive Lymphocytes Present A (Not Present) Platelet Estimate Normal (Normal) PT (9.4-12.1) Seconds INR APTT (26.0-36.0) Seconds Sample Site R Brach ABG pH 7.14 L* (7.32-7.45) pH Units ABG pCO2 41 (35-45) mmHg ABG pO2 121 H (85-104) mmHg ABG HCO3 14 L (21-27) mEq/L ABG Total CO2 15 L (20-26) mEq/L ABG O2 Saturation 97 (95-98) % ABG Base Excess -14 L (-2 to 3) mEq/L VBG pH (7.32-7.42) pH Units VBG pCO2 (41-51) mmHg VBG pO2 (25-50) mmHg VBG HCO3 (21-27) mEq/L Respiration Rate 12 O2 Delivery Device Adult Vent Blood Gas Modality ASSIST CONTROL Inspired O2 30.0 (1-15=lpm [id number]=%) Tidal Volume 550 cc PEEP 5 cm H2O Sodium 138 (136-145) mEq/L Potassium 4.8 (3.5-5.1) mEq/L Chloride 113 H (98-107) mEq/L Carbon Dioxide 14 L (23-29) mEq/L BUN 28 H (8-23) mg/dL Creatinine 2.86 H (0.60-1.20) mg/dL Est GFR ( Amer) 20 L (> 60) Est GFR (Non-Af Amer) 17 L (> 60) BUN/Creatinine Ratio 10 (6-26) Glucose 150 H (70-105) mg/dL Calculated Osmolality 294 (280-300) Lactic Acid (0.5-2.2) mmol/L Calcium 8.7 (8.6-10.3) mg/dL Magnesium (1.6-2.6) mg/dL Troponin I < 0.03 (< 0.04) ng/mL B-Natriuretic Peptide (Less than 100) pg/mL 05/09/18 05/09/18 05/09/18 Range/Units 16:26 16:39 16:41 WBC (4.3-11.1) K/mcL RBC (3.82-4.97) M/mcL Hgb (11.5-15.4) g/dL Hct (35.3-44.9) % MCV (83.0-100.0) fL MCH (28.0-33.3) pg MCHC (31.6-35.5) g/dL RDW (11.5-14.5) % Plt Count (140-400) K/mcL MPV (9.4-12.4) fL Seg Neutrophils % % Lymphocytes % % Neutrophils # (1.6-8.9) K/mcL Lymphocytes # (0.6-4.6) K/mcL Reactive Lymphocytes (Not Present) Platelet Estimate (Normal) PT (9.4-12.1) Seconds INR APTT (26.0-36.0) Seconds Sample Site ABG pH (7.32-7.45) pH Units ABG pCO2 (35-45) mmHg ABG pO2 (85-104) mmHg ABG HCO3 (21-27) mEq/L ABG Total CO2 (20-26) mEq/L ABG O2 Saturation (95-98) % ABG Base Excess (-2 to 3) mEq/L VBG pH 7.01 L* (7.32-7.42) pH Units VBG pCO2 38 L (41-51) mmHg VBG pO2 210 H (25-50) mmHg VBG HCO3 10 L (21-27) mEq/L Respiration Rate O2 Delivery Device Blood Gas Modality Inspired O2 (1-15=lpm [id number]=%) Tidal Volume cc PEEP cm H2O Sodium 139 (136-145) mEq/L Potassium 5.4 H (3.5-5.1) mEq/L Chloride 116 H (98-107) mEq/L Carbon Dioxide 14 L (23-29) mEq/L BUN 29 H (8-23) mg/dL Creatinine 2.76 H (0.60-1.20) mg/dL Est GFR ( Amer) 21 L (> 60) Est GFR (Non-Af Amer) 17 L (> 60) BUN/Creatinine Ratio 11 (6-26) Glucose 221 H (70-105) mg/dL Calculated Osmolality 301 H (280-300) Lactic Acid 2.5 H (0.5-2.2) mmol/L Calcium 8.0 L (8.6-10.3) mg/dL Magnesium 1.8 (1.6-2.6) mg/dL Troponin I (< 0.04) ng/mL B-Natriuretic Peptide (Less than 100) pg/mL - Radiology Data Radiology results reviewed: Yes I reviewed the patient's radiology results. KUB X-Ray 05/09/18 00:00 IMPRESSION: 1. Life support apparatus as described. 2. No focal consolidation in the chest. 3. Nasogastric tube courses into the body of the stomach. D/ / Gerardo Kyle / Gerardo Kyle Interpreting Provider: Gerardo Kyle Chest X-Ray 05/09/18 15:42 IMPRESSION: 1. Life support apparatus as described. 2. No focal consolidation in the chest. 3. Nasogastric tube courses into the body of the stomach. D/ / Gerardo Kyle / Gerardo Kyle Interpreting Provider: Gerardo Kyle - EKG Data EKG #1 EKG attestation: Yes I reviewed and interpreted this EKG. EKG results narrative: EKG demonstrates sinus rhythm with rate of 65 bpm. Normal axis. Normal intervals. Normal R-wave progression. No gross ST elevations or depressions. No acute ischemic findings. Critical Care Time Critical Care Time: Yes Total Critical Care Time: 60 Attestation: The high probability of a clinically significant, sudden or life threatening deterioration of the [CV/GI] system(s) required my full and direct attention, intervention and personal management. The aggregate critical care time was [60] minutes. This time is in addition to time spent performing reported procedures but includes the following: [x] Data Review and interpretation [x] Patient assessment and monitoring of vital signs [x] Documentation [x] Medication orders and management S.Kia - Venkat Situation: Demographics, MOA Background: Presenting Complaint, Relevant PMH, Meds, & Allergies Assessment: Vital Signs, Course and respsone to treatment, Exam Concerns, Patient/Family Expectation, Pertinant Lab Results Recommendation: Barrier(s) to disposition, Recommendation based on pending studies, treatments, or consults S.BBeverly Report Given to: Dr. Tito Robledo Repor Time: 19:09 Attestation Statement - Attestation Attestation: I examined this patient and my medical decision-making was reviewed with the Resident Physician, Dr. Shahid. I agree with the documented findings, disposition and treatment plan as described except to the extent set forth below. Patient is a 62-year-old white female who is sent to us from a procedure suite in the hospital after patient had just completed a thyroid biopsy she reportedly complaining of some chest pain shortness of breath and had a syncopal episode. Patient was sent to the emergency department for evaluation. On arrival to the ED patient was complaining of some abdominal pain and repeatedly concerned because she states just have a bowel movement. Patient's been having excessive diarrhea for the past week with no relief. Patient denies any vomiting states she was feeling fine before her testing this morning and there was no complication during the biopsy procedure. Patient denies any chest pain pressure or heaviness, no prior history of syncope, and was hypotensive on arrival. I agree with patient's physical exam findings as documented. She shows a normal sinus rhythm without acute ischemia. Patient had multiple episodes of loose watery diarrhea at bedside shortly after arrival. Patient received IV fluid boluses with concern for sepsis had full lab evaluation including lactate EKG performed and chest x-ray obtained. We did order CT imaging. Patient did not respond to initial 2 L bolus and a third liter was ordered and needed additional IV access. Patient had a central line placed after consent by the in the left IJ. I was personally present and supervised procedure at bedside. Procedure was performed without complication and position was confirmed on chest x-ray postprocedure. No pneumothorax or complications, please see procedure note for details. Patient' s status continued to decline as well as continued diarrhea at bedside. Stool cultures were sent upon review of her medical records she is on chronic steroids so steroid dose was given. Patient was started on pressors and due to declining mental status the decision was made to intubate the patient for airway stability. Patient was intubated while I personally was in the room supervising the procedure. There were no complications or episodes of hypoxia, please see procedure note for details. Patient had her leave that titrated, sedation was added. CT abdomen and pelvis was obtained which does not show any acute abnormality. Patient had IV antibiotics to cover for C. difficile and an infectious diarrheal illness initiated in the ED. Patient was admitted to the ICU for further evaluation and management of septic shock, syncope, lactic acidosis. Patient remains in critical but stable condition.
[2018-05-09] MEDS ORDERED: Naloxone 0.4 MG/ML INJ IVP PRN (18:17)
[2018-05-09] MEDS ORDERED: D5% in Water 1,000 ML IVC PRN (18:23)
[2018-05-09] MEDS ORDERED: *HR* Dextrose 50 % in Water (Syg) 50 ML SYRINGE IVP PRN (18:23)
[2018-05-09] MEDS ORDERED: Dextrose Gel 15 GM/37.5 ML TUBE PO PRN ×2 (18:23)
[2018-05-09] MEDS ORDERED: D5% in 0.9% NACL 1,000 ML IVC SCH (18:30)
[2018-05-09 18:34] LABS: Magnesium 1.8 mg/dL (1.6-2.6); Potassium 5.4 mEq/L (3.5-5.1)
[2018-05-09] MEDS ORDERED: Potassium Chloride 40 MEQ/200 ML BAG IVPB PRN (19:18)
[2018-05-09] MEDS ORDERED: Artificial Tears SOLN 15 ML BOTTLE BOTH EYES PRN (19:22)
[2018-05-09] MEDS ORDERED: Ringers Solution, Lactated 1,000 ML IVC SCH (19:30)
--- NOTE | 2018-05-09 20:15 | Internal Med History&Physical ---
Date of Encounter: 05/09/18 Time of Encounter: 20:04 Internal Medicine - H&P: HPI Chief complaint: Syncope Admitted From: Home Plans for Post Hospital Care: Home History of present illness: Ms. Deleon is a 62 year old female presented to the emergency department from outpatient surgery after having syncopal episode. Patient is currently sedated and intubated treatment examination. Daughters are at bedside but did not know patient's medical situation. Patient underwent procedure without any complications and thereafter started having chest pain, shortness of breath and became syncopal. Medical service was called and patient was transferred to the emergency department. She Patient told the emergency department physician that she was having abdominal pain and felt like she needed to have a bowel movement. Her blood pressure was found to be hypertensive in systolic 80s 90s. She is blood pressure was refractory to IV fluids. She was given stress dose steroids. Her mental status started worsening and she developed perioral cyanosis. Therefore patient was intubated. She had a left IJ CVC access placed. And she was started on pressor support with norepinephrine. Patient has a history of barretts esophagus and was started on carafate and PPI BID in september. In october she developed salmonella enteritis and was treated with ciprofloxacin. In november she devleoped acute diverticulitis and was treated with total 14 days of cirpofloxacin and flagyl. Then in january she devleoped c-diff colits and was treated with vancomycin oral for 14 days. Last admission for C. difficile colitis was January 2018. At that time she was treated with oral vancomycin for total 14 days. Unclear if patient has recently been on antibiotics. Past Med Surg Social Fam HX - Past Medical History Medical history: asthma, GERD, hyperlipidemia, hypertension, renal disease, other Additional medical history: diverticulitis Psychiatric history: anxiety, depression - Past Surgical History Surgical History: appendectomy, cholecystectomy, herniorrhaphy Additional surgical history: bilateral knees - Social History Smoking Status: Never smoker Smokeless Tobacco Status: No Alcohol use: none Drug use: none - Family History Mother Living Status: Still Living Hx Family Cardiac Disorders: Yes (CABG) Hx Family Neurologic Disorders: Yes (DEMENTIA) Father Living Status: Internal Medicine - H&P: Meds Albuterol Sulfate [Ventolin Hfa] 2 puff IH Q4-6H PRN 01/20/17 [History] Ascorbic Acid [Vitamin C] 500 mg PO DAILY 01/20/17 [History] Bupropion HCl [Wellbutrin Xl] 300 mg PO DAILY 01/20/17 [History] Cholecalciferol (Vitamin D3) [Vitamin D3] 5,000 unit PO DAILY 01/20/17 [History] Cyanocobalamin (Vitamin B-12) [Vitamin B12] 1,000 mcg PO DAILY 01/20/17 [History ] Folic Acid 1 mg PO DAILY 01/20/17 [History] Gabapentin [Neurontin] 600 mg PO HS 03/16/17 [History] Trazodone HCl 200 mg PO HS 04/22/17 [History] Iron Ag,Ps/C/Fa6/B12/Zn/SA/Sto [Niferex Tablet] 1 each PO DAILY 11/06/17 [ History] Mometasone/Formoterol [Dulera 200 Mcg/5 Mcg Inhaler] 2 puff IH BID 11/07/17 [ History] Paroxetine [Paxil] 30 mg PO DAILY 12/18/17 [History] Calcitriol [Rocaltrol] 0.25 mcg PO DAILY 01/30/18 [History] Dicyclomine [Bentyl] 20 mg PO QID 01/30/18 [History] Famotidine [Pepcid] 20 mg PO HS tablet 01/31/18 [Rx] Lisinopril [Zestril] 20 mg PO DAILY 05/09/18 [History] 3 Allergy/AdvReac Type Severity Reaction Status Date / Time codeine AdvReac Nausea Verified 12/18/17 14:53 morphine AdvReac Nausea Verified 12/18/17 14:53 Penicillins [PCN] AdvReac Rash Verified 12/18/17 14:53 Sulfa (Sulfonamide AdvReac Rash Verified 12/18/17 14:53 Antibiotics) ROS unobtainable: due to endotracheal tube, due to mental status All Systems PM: A 10-system review of systems was performed and is negative for pertinent findings except as documented above in the HPI. - Constitutional Vitals: Temp Pulse Resp BP Pulse Ox 96.8 F L 56 12 100/59 100 05/09/18 19:00 05/09/18 18:46 05/09/18 18:46 05/09/18 19:37 05/09/18 19:37 Exam: General: Medically induced coma, intubated HEENT: Head atraumatic, normocephalic, PERRL, absent ear discharge or trauma, intubated Neck: nontender to palpation, absent lymphadenopathy, left IJ CVC Cardiovascualr: Sinus Bradycardia, without murmur, absent gallops or rubs, absent pedal edema, radial pulses 2 out of 4 Lungs: Clear to auscultation bilaterally, intubated Abdomen: Soft nontender, nondistended positive bowel sounds, absent hepatomegaly Skin: warm and dry, absent rash, absent open wounds and nodules MSK: absent clubbing, cyanosis, joints without swelling Neuro: Intubated, sedated Psych: Intubated, sedated Internal Med - H&P Results - Labs CBC & Chem 7: 05/09/18 13:59 05/09/18 16:41 Labs: Cardiac Enzymes 05/09/18 Range/Units 18:30 Troponin I 0.03 (< 0.04) ng/mL - Assessment and plan (1) Septic shock Current Visit: Yes Status: Acute Assessment and plan: 62-year-old female presented from outpatient surgery after undergoing thyroid biopsy. She had a syncopal episode. She was found to be hypotensive despite IV fluid resuscitation and started on norepinephrine Patient had a large positive diarrhea: Infectious etiology includes Clostridium difficile. Patient also had history of salmonella enteritis and diverticulitis Lactic acid initially was 2. 5 repeat was 1.1. Plan: Continue norepinephrine with a goal of map of 60. We will start maintenance fluids with lactated Ringer's running at 125 an hour. (2) Acute respiratory failure with hypoxia Current Visit: Yes Status: Acute Assessment and plan: In the emergency department patient was seen to altered mental status likely secondary to hypertension and developing perioral cyanosis. She was emergently intubated ABG pH was 7.14 with PCO2 of 41 and a PO2 of 121. Chest x-ray was us any signs of infection. Head CT negative. Patient has non-gap metabolic acidosis secondary to profound diarrhea The patient has adequate ventilation with a tidal volume of 550, rate of 12, PEEP of 5 and FiO2 of 30 Plan: Repeat ABG, bed of head elevated, oral hygiene (3) Infectious diarrhea Current Visit: Yes Status: Acute Assessment and plan: Patient likely septic shock secondary to infectious diarrhea Last January patient was diagnosed with C. difficile colitis and treated with 14 days of oral vancomycin. Furthermore in the past patient has had salmonella enteritis as well. CT abdomen and pelvis showed liquid stool within the ascending and transverse colon, no pericolonic inflammatory changes. We will send stool panel. Patient started on oral vancomycin, ciprofloxacin and Flagyl. She will have maintenance IV fluids to negate GI losses. (4) Acute kidney injury Current Visit: Yes Status: Acute Assessment and plan: Acute on chronic kidney injury. Patient has history of CKD stage 4 Secondary to septic shock, prerenal Given IV fluids and currently on pressor support We will repeat CMP to follow renal function. Avoid nephrotoxic agents. (5) Hyperkalemia Current Visit: Yes Status: Acute Assessment and plan: Patient's last BMP indicated a potassium of 5.4 Patient has been given a total of 4 L IV fluids and is on maintenance LR We will recheck CMP. - Time Spent With Patient Total time spent is greater than 50% in coordination of care (as documented) at patient's floor/unit and/or counseling patient:
[2018-05-09 20:46] LABS: ABG Base Excess -14 mEq/L (-2 to 3); ABG HCO3 15 mEq/L (21-27); ABG Oxygen Saturation 98 % (95-98); ABG PCO2 40 mmHg (35-45); ABG PH 7.16 pH Units (7.32-7.45); ABG PO2 132 mmHg (85-104); ABG TCO2 16 mEq/L (20-26); Blood Gas Modality ASSIST CONTROL; Blood Gas PEEP 5 cm H2O; Blood Gas Respiration Rate 12; Blood Gas VT 550 cc
[2018-05-09] MEDS: *HR* Heparin 5,000 UNIT/ML VIAL SQ SCH (20:55)
[2018-05-09] MEDS: Artificial Tears SOLN 15 ML BOTTLE BOTH EYES SCH ×2 (20:55→23:36)
[2018-05-09] MEDS: Chlorhexidine Rinse 15 ML MOUTHWASH MM SCH (20:55)
[2018-05-09] MEDS ORDERED: Vancomycin Oral Soln 125 MG/2.5 ML UDC PO SCH (21:00)
[2018-05-09 21:20] LABS: VBG Ionized Calcium 1.11 mmol/L (1.15-1.35)
[2018-05-09 21:37] LABS: Albumin 3.7 g/dL (3.5-5.7); Albumin/Globulin Ratio 2.1 (1.1-2.2); Bilirubin,Total 0.4 mg/dL (0.3-1.0); Calcium 7.7 mg/dL (8.6-10.3); Globulin 1.8 g/dL (2.4-3.5); Potassium 5.5 mEq/L (3.5-5.1); Total Protein 5.5 g/dL (6.4-8.9)
[2018-05-09] MEDS: Sodium Bicarbonate 150 MEQ in D5% in Water 1,000 ML IVC SCH (21:58)
[2018-05-09] MEDS: Cholestyramine 4 GM POWD.PACK PO SCH (22:04)
[2018-05-09 22:49] LABS: Bilirubin,Urine Negative (Negative); Blood,Urine Moderate (Negative); Clarity,Urine Cloudy (Clear); Color,Urine Yellow (Yellow); Glucose,Urine (UA) Normal (Normal); Ketones,Urine Negative (Negative); Leukocyte Esterase,Urine Small (Negative); Nitrite,Urine Negative (Negative); PH,Urine 5.5 pH Units (5.0-8.0); Protein,Urine 30 mg/dL (Neg-Trace); Specific Gravity,Urine 1.014 (1.010-1.025); Urobilinogen,Urine Normal (Normal)
[2018-05-09 22:51] LABS: Bacteria,Urine None Seen per hpf (None-Few); Hyaline Casts,Urine Few per lpf (None-Few); RBC,Urine 15-30 per hpf (0-3); Squamous Epithelial Cell,Urine Many per lpf (None-Few); WBC,Urine 15-30 per hpf (0-3)
[2018-05-09 23:06] LABS: Renal Epithelial Cells,Urine Few per hpf (None-Few)
[2018-05-09 23:07] LABS: Yeast,Urine Few per hpf (None Seen)
[2018-05-09] MEDS: Insulin LISPRO 300 UNITS/3 ML VIAL SQ SCH (23:35)
[2018-05-09] MEDS: MetroNIDAZOLE 500 MG/100 ML 500 MG/100 ML BAG IVPB SCH (23:36)
[2018-05-10 00:15] LABS: Adenovirus F 40/41 PCR Not detected (Not detect); Astrovirus PCR Not detected (Not detect); C.difficile Toxin A/B by PCR Not detected (Not detect); Campylobacter by PCR Not detected (Not detect); Cryptosporidium by PCR Not detected (Not detect); Cyclospora cayetanensis PCR Not detected (Not detect); Entamoeba histolytica PCR Not detected (Not detect); Enteroaggregative E.coli(EAEC) Not detected (Not detect); Enteropathogenic E.coli(EPEC) Not detected (Not detect); Enterotoxigenic E.coli (ETEC) Not detected (Not detect); Giardia lamblia PCR Not detected (Not detect); Norovirus GI/GII PCR Not detected (Not detect); Plesiomonas shigelloides PCR Not detected (Not detect); Rotavirus A PCR Not detected (Not detect); Salmonella PCR Not detected (Not detect); Sapovirus PCR Not detected (Not detect); Shig/EnteroinvasiveE coli EIEC Not detected (Not detect); Shigalike tox-prod E coli STEC Not detected (Not detect); Vibrio PCR Not detected (Not detect); Vibrio cholerae PCR Not detected (Not detect); Yersinia enterocolitica PCR Not detected (Not detect)
[2018-05-10] MEDS: Artificial Tears SOLN 15 ML BOTTLE BOTH EYES SCH ×6 (03:17→23:21)
[2018-05-10 03:50] LABS: Basophils % 0.3 %; Eosinophils % 0.1 %; Hematocrit 29.5 % (35.3-44.9); Hemoglobin 9.5 g/dL (11.5-15.4); Immature Granulocytes % 0.4 % (0-4); Lymphocytes # 1.6 K/mcL (0.6-4.6); Lymphocytes % 10.5 %; Mean Corpuscular HGB Conc 32.2 g/dL (31.6-35.5); Mean Corpuscular Volume 93.1 fL (83.0-100.0); Mean Platelet Volume 9.5 fL (9.4-12.4); Monocytes # 0.8 K/mcL (0.0-1.3); Monocytes % 4.9 %; Neutrophils # 12.8 K/mcL (1.6-8.9); Platelet Count 215 K/mcL (140-400); Red Blood Count 3.17 M/mcL (3.82-4.97); Red Cell Distribution Width 12.9 % (11.5-14.5); Segmented Neutrophils % 83.8 %
[2018-05-10 03:52] LABS: Basophils # 0.1 K/mcL (0.0-0.2)
[2018-05-10 04:11] LABS: Magnesium 1.4 mg/dL (1.6-2.6); Phosphorous 2.8 mg/dL (2.7-4.5); Potassium 4.4 mEq/L (3.5-5.1)
[2018-05-10] MEDS: Sodium Bicarbonate 150 MEQ in D5% in Water 1,000 ML IVC SCH (04:13)
[2018-05-10 04:51] LABS: ABG Base Excess -8 mEq/L (-2 to 3); ABG HCO3 17 mEq/L (21-27); ABG Oxygen Saturation 98 % (95-98); ABG PCO2 34 mmHg (35-45); ABG PH 7.32 pH Units (7.32-7.45); ABG PO2 114 mmHg (85-104); ABG TCO2 18 mEq/L (20-26); Blood Gas Modality ASSIST CONTROL; Blood Gas PEEP 5 cm H2O; Blood Gas Respiration Rate 12; Blood Gas VT 550 cc
[2018-05-10 04:53] LABS: VBG Ionized Calcium 1.09 mmol/L (1.15-1.35)
[2018-05-10] MEDS: *HR* Heparin 5,000 UNIT/ML VIAL SQ SCH ×3 (05:05→20:45)
[2018-05-10] MEDS: Insulin LISPRO 300 UNITS/3 ML VIAL SQ SCH ×4 (05:12→23:24)
[2018-05-10 05:13] LABS: Troponin I 0.03 ng/mL (< 0.04)
[2018-05-10] MEDS ORDERED: Famotidine 20 MG/2 ML VIAL IVP SCH (06:00)
[2018-05-10] MEDS ORDERED: Pantoprazole 40 MG VIAL IVP SCH (06:00)
[2018-05-10] MEDS: Cholestyramine 4 GM POWD.PACK PO SCH ×4 (07:20→20:45)
[2018-05-10] MEDS: Chlorhexidine Rinse 15 ML MOUTHWASH MM SCH ×2 (07:20→20:45)
[2018-05-10] MEDS: MetroNIDAZOLE 500 MG/100 ML 500 MG/100 ML BAG IVPB SCH ×3 (07:20→23:15)
[2018-05-10] MEDS: Dexmedetomidine HCl 400 MCG/100 ML MLS IVC SCH ×2 (07:24→14:21)
--- NOTE | 2018-05-10 07:52 | Electrocardiograph Report ---
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
[2018-05-10 08:26] LABS: Estimated Average Glucose 111 mg/dl; Hemoglobin A1C 5.5 %
[2018-05-10] MEDS ORDERED: Ringers Solution, Lactated 1,000 ML IVC ONE (08:30)
[2018-05-10] MEDS: Norepinephrine 4 MG in D5% in Water 250 ML IVC SCH ×2 (09:27→21:22)
--- NOTE | 2018-05-10 10:44 | Pulmonology Consult Note ---
<Olivier Degroot - Last Filed: 05/10/18 12:37> Date of Encounter: 05/10/18 Time of Encounter: 12:37 Assessment and Plan (1) Septic shock Current Visit: Yes Status: Acute Syncopal episode experienced after undergoing thyroid biopsy Patient hypotensive despite IV fluid resuscitation-started on Levophed Patient positive for diarrhea with CT scan revealing large amount of liquid stool-patient has history of diverticulitis and Salmonella and C. difficile enteritis. Lactic acid currently normal at 1.1 at last check (05/09/2018) Continue Levophed with map goal of 65. Continue IV fluids (2) Acute respiratory failure with hypoxia Current Visit: Yes Status: Acute Patient experience altered mental status in the setting of perioral cyanosis and dyspnea Patient emergently intubated in [facility] ED Patient initially presented with metabolic acidosis-started on bicarbonate drip- pH now 7.32 Repeat ABGs Metabolic acidosis likely secondary to diarrhea Chest x-ray negative for acute pulmonary process Head CT negative for intracranial pathology Patient is currently intubated on mechanical ventilation with sedation Continue to monitor (3) Acute kidney injury superimposed on chronic kidney disease Current Visit: Yes Status: Acute Patient has a history of CKD4 Acute on chronic kidney injury likely secondary to hypotension Currently receiving IV fluids and pressure support Repeat BMP to follow renal function, avoid nephrotoxic agents. (4) Infectious diarrhea Current Visit: Yes Status: Acute Patient likely experiences septic shock secondary to infectious diarrhea Patient has history of C. difficile colitis and Salmonella enteritis. CT abdomen and pelvis showed liquid stool within the colon without inflammatory change Stool panel negative for C. difficile Patient currently receiving ciprofloxacin and Flagyl Strictly monitor intake and output with IV fluids to replace GI loss. (5) Hyperkalemia Current Visit: Yes Status: Acute Last potassium level 4.4 Patient has received a total of 4 L of fluid Continue to monitor her electrolytes (6) DVT prophylaxis Current Visit: No Status: Acute 5000 units subcutaneous heparin 3 times a day History of Present Illness Reason for consult: dyspnea, chest pain Chief complaint: Syncope History of present illness: Patient is a 62-year-old female who presented to [facility] ICU from outpatient surgery after having a syncopal episode immediately following a thyroid biopsy. Rapid response was called to ultrasound bed 3 due to the patient stating that she was having chest pains and difficulty breathing in association with diaphoresis. Patient was sent to the ED where she became hypotensive and hypoxic with perioral cyanosis noted. Patient blood pressures were nonresponsive IV fluids and further decompensation in patient status occurred. The patient was intubated and placed on pressors via a central line. 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 difficile. Patient was examined this morning with her at bedside. states that patient had no complaints prior hospital admission except abdominal pain and diarrhea. Patient has been stated there was one episode of possible visual hallucination 2 or 3 days ago with the patient describes seeing bugs crawling through their house that the did not see. states patient has been on no new medications to his knowledge. Past Med Surg Social Fam HX - Past Medical History Medical history: asthma, GERD, hyperlipidemia, hypertension, renal disease, other Additional medical history: diverticulitis Psychiatric history: anxiety, depression - Past Surgical History Surgical History: appendectomy, cholecystectomy, herniorrhaphy Additional surgical history: bilateral knees - Social History Smoking Status: Never smoker Smokeless Tobacco Status: No Alcohol use: none Drug use: none - Family History Father Living Status: Mother Living Status: Still Living Hx Family Cardiac Disorders: Yes (CABG) Hx Family Neurologic Disorders: Yes (DEMENTIA) Medications and Allergies RX: Albuterol Sulfate [Ventolin Hfa] 2 puff IH Q4-6H PRN 01/20/17 [History] RX: Ascorbic Acid [Vitamin C] 500 mg PO DAILY 01/20/17 [History] RX: Bupropion HCl [Wellbutrin Xl] 300 mg PO DAILY 01/20/17 [History] RX: Cholecalciferol (Vitamin D3) [Vitamin D3] 5,000 unit PO DAILY 01/20/17 [History] RX: Cyanocobalamin (Vitamin B-12) [Vitamin B12] 1,000 mcg PO DAILY 01/20/17 [History] RX: Folic Acid 1 mg PO DAILY 01/20/17 [History] RX: Gabapentin [Neurontin] 600 mg PO HS 03/16/17 [History] RX: Trazodone HCl 200 mg PO HS 04/22/17 [History] RX: Iron Ag,Ps/C/Fa6/B12/Zn/SA/Sto [Niferex Tablet] 1 each PO DAILY 11/06/17 [History] RX: Mometasone/Formoterol [Dulera 200 Mcg/5 Mcg Inhaler] 2 puff IH BID 11/07/17 [History] RX: Paroxetine [Paxil] 30 mg PO DAILY 12/18/17 [History] RX: Calcitriol [Rocaltrol] 0.25 mcg PO DAILY 01/30/18 [History] RX: Dicyclomine [Bentyl] 20 mg PO QID 01/30/18 [History] RX: Famotidine [Pepcid] 20 mg PO HS tablet 01/31/18 [Rx] RX: Lisinopril [Zestril] 20 mg PO DAILY 05/09/18 [History] Allergy/AdvReac Type Severity Reaction Status Date / Time codeine AdvReac Nausea Verified 12/18/17 14:53 morphine AdvReac Nausea Verified 12/18/17 14:53 Penicillins [PCN] AdvReac Rash Verified 12/18/17 14:53 Sulfa (Sulfonamide AdvReac Rash Verified 12/18/17 14:53 Antibiotics) ROS unobtainable: due to endotracheal tube, due to mental status (Patient is intubated and chemically sedated on mechanical ventilation) All Systems: The remainder of the systems were reviewed and are negative Physical Examination Vital Signs: Vital Signs, Last 4 Hours Temp Pulse Resp BP Pulse Ox 05/10/18 09:00 50 12 81/34 99 05/10/18 08:25 98.3 F 05/10/18 08:00 52 12 89/46 100 05/10/18 07:00 50 12 86/66 100 General appearance: asleep (Patient is intubated and chemically sedated on mechanical ventilation) Auscultation: bilateral: clear Cardiovascular: regular rate and rhythm Gastrointestinal: normoactive bowel sounds, soft, tender (Patient grimaces to abdominal palpation), non-distended Extremities: no cyanosis, no edema Ventilator Settings Ventilator Settings: Ventilator Settings, Last 8 Hours Ventilator Tidal Volume 550 Setting Ventilator Tidal Volume 550 Setting Ventilator Tidal Volume 550 Setting Ventilator Tidal Volume 550 Setting Ventilator Tidal Volume 550 Setting Ventilator Tidal Volume 550 Setting Ventilator Tidal Volume 550 Setting Ventilator Tidal Volume 550 Setting Ventilator Tidal Volume 550 Setting Ventilator Tidal Volume 550 Setting Ventilator Respiratory Rate 12 Setting Ventilator Respiratory Rate 12 Setting Ventilator Respiratory Rate 12 Setting Ventilator Respiratory Rate 12 Setting Ventilator Respiratory Rate 12 Setting Ventilator Respiratory Rate 12 Setting Ventilator Respiratory Rate 12 Setting Ventilator Respiratory Rate 12 Setting Ventilator Respiratory Rate 12 Setting Ventilator Respiratory Rate 12 Setting Actual Respiratory Rate 12 Actual Respiratory Rate 12 Actual Respiratory Rate 12 Actual Respiratory Rate 12 Actual Respiratory Rate 12 Actual Respiratory Rate 12 Positive End Expiratory 5 Pressure Positive End Expiratory 5 Pressure Positive End Expiratory 5 Pressure Positive End Expiratory 5 Pressure Positive End Expiratory 5 Pressure Positive End Expiratory 5 Pressure Positive End Expiratory 5 Pressure Positive End Expiratory 5 Pressure Positive End Expiratory 5 Pressure Positive End Expiratory 5 Pressure Peak Inspiratory Airway 22 Pressure Peak Inspiratory Airway 23 Pressure Peak Inspiratory Airway 24 Pressure Peak Inspiratory Airway 24 Pressure Peak Inspiratory Airway 24 Pressure Peak Inspiratory Airway 24 Pressure Peak Inspiratory Airway 23 Pressure Peak Inspiratory Airway 21 Pressure Peak Inspiratory Airway 21 Pressure Results - Laboratory Findings CBC and BMP: 05/10/18 03:40 05/10/18 03:40 ABG ABG pH 7.32 pH Units (7.32-7.45) 05/10/18 04:47 ABG pCO2 34 mmHg (35-45) L 05/10/18 04:47 ABG pO2 114 mmHg (85-104) H 05/10/18 04:47 ABG O2 Saturation 98 % (95-98) 05/10/18 04:47 PT/INR, D-dimer PT 12.1 Seconds (9.4-12.1) 05/09/18 13:59 Abnormal lab findings: Abnormal lab results WBC 15.3 K/mcL (4.3-11.1) H D 05/10/18 03:40 RBC 3.17 M/mcL (3.82-4.97) L 05/10/18 03:40 Hgb 9.5 g/dL (11.5-15.4) L D 05/10/18 03:40 Hct 29.5 % (35.3-44.9) L 05/10/18 03:40 Neutrophils # 12.8 K/mcL (1.6-8.9) H 05/10/18 03:40 Reactive Lymphocytes Present (Not Present) A 05/09/18 13:59 ABG pCO2 34 mmHg (35-45) L 05/10/18 04:47 ABG pO2 114 mmHg (85-104) H 05/10/18 04:47 ABG HCO3 17 mEq/L (21-27) L 05/10/18 04:47 ABG Total CO2 18 mEq/L (20-26) L 05/10/18 04:47 ABG Base Excess -8 mEq/L (-2 to 3) L 05/10/18 04:47 VBG pH 7.01 pH Units (7.32-7.42) L* 05/09/18 16:26 VBG pCO2 38 mmHg (41-51) L 05/09/18 16:26 VBG pO2 210 mmHg (25-50) H 05/09/18 16:26 VBG HCO3 10 mEq/L (21-27) L 05/09/18 16:26 Chloride 114 mEq/L (98-107) H 05/10/18 03:40 Carbon Dioxide 18 mEq/L (23-29) L 05/10/18 03:40 BUN 31 mg/dL (8-23) H 05/10/18 03:40 Creatinine 2.69 mg/dL (0.60-1.20) H 05/10/18 03:40 Est GFR ( Amer) 22 (> 60) L 05/10/18 03:40 Est GFR (Non-Af Amer) 18 (> 60) L 05/10/18 03:40 Glucose 210 mg/dL (70-105) H 05/10/18 03:40 POC Glucose 197 mg/dL (70-99) H 05/09/18 23:30 Calculated Osmolality 301 (280-300) H 05/10/18 03:40 Calcium 7.0 mg/dL (8.6-10.3) L 05/10/18 03:40 Venous Ioniz Calcium 1.09 mmol/L (1.15-1.35) L 05/10/18 04:51 Magnesium 1.4 mg/dL (1.6-2.6) L 05/10/18 03:40 AST 10 Units/L (13-39) L 05/09/18 21:00 ALT 6 Units/L (7-52) L 05/09/18 21:00 Serum Total Protein 5.5 g/dL (6.4-8.9) L 05/09/18 21:00 Globulin 1.8 g/dL (2.4-3.5) L 05/09/18 21:00 Urine Clarity Cloudy (Clear) A 05/09/18 22:38 Urine Protein 30 mg/dL (Neg-Trace) H 05/09/18 22:38 Urine Blood Moderate (Negative) H 05/09/18 22:38 Ur Leukocyte Esterase Small (Negative) H 05/09/18 22:38 Urine Microscopic RBC 15-30 per hpf (0-3) H 05/09/18 22:38 Urine Microscopic WBC 15-30 per hpf (0-3) H 05/09/18 22:38 Ur Squamous Epith Cells Many per lpf (None-Few) H 05/09/18 22:38 Urine Yeast Few per hpf (None Seen) H 05/09/18 22:38 Ur Culture Indicated? NO. (NO) A 05/09/18 22:38 - Clinical Findings Intake & Output: Intake & Output 05/09/18 05/10/18 05/10/18 23:59 07:59 15:59 Intake Total 697 / 1460 3084 / 3084 650 / 650 Output Total 400 / 400 250 / 250 Balance 697 / 1460 2684 / 2684 400 / 400 Weight 112.3 kg Consult Discharge Plan - Plan Referrals: Aranza Ring [Primary Care Provider] - <Martin Diaz M - Last Filed: 05/11/18 16:46> All Systems: The remainder of the systems were reviewed and are negative Physical Examination Vital Signs: Vital Signs, Last 4 Hours Temp Pulse Resp BP Pulse Ox 05/10/18 12:09 98.6 F 05/10/18 12:00 58 12 103/44 100 05/10/18 11:00 58 12 105/52 100 05/10/18 10:46 12 100 05/10/18 10:00 55 12 98/40 99 Ventilator Settings Ventilator Settings: Ventilator Settings, Last 8 Hours Ventilator Tidal Volume 550 Setting Ventilator Tidal Volume 550 Setting Ventilator Tidal Volume 550 Setting Ventilator Tidal Volume 550 Setting Ventilator Tidal Volume 550 Setting Ventilator Tidal Volume 550 Setting Ventilator Tidal Volume 550 Setting Ventilator Tidal Volume 550 Setting Ventilator Respiratory Rate 12 Setting Ventilator Respiratory Rate 12 Setting Ventilator Respiratory Rate 12 Setting Ventilator Respiratory Rate 12 Setting Ventilator Respiratory Rate 12 Setting Ventilator Respiratory Rate 12 Setting Ventilator Respiratory Rate 12 Setting Ventilator Respiratory Rate 12 Setting Actual Respiratory Rate 12 Actual Respiratory Rate 12 Positive End Expiratory 5 Pressure Positive End Expiratory 5 Pressure Positive End Expiratory 5 Pressure Positive End Expiratory 5 Pressure Positive End Expiratory 5 Pressure Positive End Expiratory 5 Pressure Positive End Expiratory 5 Pressure Positive End Expiratory 5 Pressure Peak Inspiratory Airway 22 Pressure Peak Inspiratory Airway 24 Pressure Peak Inspiratory Airway 25 Pressure Peak Inspiratory Airway 25 Pressure Peak Inspiratory Airway 22 Pressure Peak Inspiratory Airway 23 Pressure Peak Inspiratory Airway 24 Pressure Peak Inspiratory Airway 24 Pressure Results - Laboratory Findings CBC and BMP: 05/11/18 04:05 05/11/18 04:05 ABG ABG pH 7.32 pH Units (7.32-7.45) 05/10/18 04:47 ABG pCO2 34 mmHg (35-45) L 05/10/18 04:47 ABG pO2 114 mmHg (85-104) H 05/10/18 04:47 ABG O2 Saturation 98 % (95-98) 05/10/18 04:47 PT/INR, D-dimer PT 12.1 Seconds (9.4-12.1) 05/09/18 13:59 Abnormal lab findings: Abnormal lab results WBC 15.3 K/mcL (4.3-11.1) H D 05/10/18 03:40 RBC 3.17 M/mcL (3.82-4.97) L 05/10/18 03:40 Hgb 9.5 g/dL (11.5-15.4) L D 05/10/18 03:40 Hct 29.5 % (35.3-44.9) L 05/10/18 03:40 Neutrophils # 12.8 K/mcL (1.6-8.9) H 05/10/18 03:40 Reactive Lymphocytes Present (Not Present) A 05/09/18 13:59 ABG pCO2 34 mmHg (35-45) L 05/10/18 04:47 ABG pO2 114 mmHg (85-104) H 05/10/18 04:47 ABG HCO3 17 mEq/L (21-27) L 05/10/18 04:47 ABG Total CO2 18 mEq/L (20-26) L 05/10/18 04:47 ABG Base Excess -8 mEq/L (-2 to 3) L 05/10/18 04:47 VBG pH 7.01 pH Units (7.32-7.42) L* 05/09/18 16:26 VBG pCO2 38 mmHg (41-51) L 05/09/18 16:26 VBG pO2 210 mmHg (25-50) H 05/09/18 16:26 VBG HCO3 10 mEq/L (21-27) L 05/09/18 16:26 Chloride 114 mEq/L (98-107) H 05/10/18 03:40 Carbon Dioxide 18 mEq/L (23-29) L 05/10/18 03:40 BUN 31 mg/dL (8-23) H 05/10/18 03:40 Creatinine 2.69 mg/dL (0.60-1.20) H 05/10/18 03:40 Est GFR ( Amer) 22 (> 60) L 05/10/18 03:40 Est GFR (Non-Af Amer) 18 (> 60) L 05/10/18 03:40 Glucose 210 mg/dL (70-105) H 05/10/18 03:40 POC Glucose 197 mg/dL (70-99) H 05/09/18 23:30 Calculated Osmolality 301 (280-300) H 05/10/18 03:40 Calcium 7.0 mg/dL (8.6-10.3) L 05/10/18 03:40 Venous Ioniz Calcium 1.09 mmol/L (1.15-1.35) L 05/10/18 04:51 Magnesium 1.4 mg/dL (1.6-2.6) L 05/10/18 03:40 AST 10 Units/L (13-39) L 05/09/18 21:00 ALT 6 Units/L (7-52) L 05/09/18 21:00 Serum Total Protein 5.5 g/dL (6.4-8.9) L 05/09/18 21:00 Globulin 1.8 g/dL (2.4-3.5) L 05/09/18 21:00 Urine Clarity Cloudy (Clear) A 05/09/18 22:38 Urine Protein 30 mg/dL (Neg-Trace) H 05/09/18 22:38 Urine Blood Moderate (Negative) H 05/09/18 22:38 Ur Leukocyte Esterase Small (Negative) H 05/09/18 22:38 Urine Microscopic RBC 15-30 per hpf (0-3) H 05/09/18 22:38 Urine Microscopic WBC 15-30 per hpf (0-3) H 05/09/18 22:38 Ur Squamous Epith Cells Many per lpf (None-Few) H 05/09/18 22:38 Urine Yeast Few per hpf (None Seen) H 05/09/18 22:38 Ur Culture Indicated? NO. (NO) A 05/09/18 22:38 - Clinical Findings Intake & Output: Intake & Output 05/09/18 05/10/18 05/10/18 23:59 07:59 15:59 Intake Total 697 / 1460 3188 / 3188 1080 / 1080 Output Total 400 / 400 550 / 550 Balance 697 / 1460 2788 / 2788 530 / 530 Weight 112.3 kg - Attending Attestation I examined this patient and my medical decision-making was reviewed with the Resident Physician. I agree with the documented findings, disposition and treatment plan as described except to the extent set forth below. Patient seen and examined. Labs, radiology, chart personally reviewed. 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 Pulmonary: Acceptable oxygenation and ventilation, however she is not stable for SBT and appropriate vent changes based on her ABG and her PEEPi and Plateau pressure is acceptable range. Cardiovascular: Septic shock and tried fluid with crystolloid and colloid, hopin g to get her off pressors. Might consider cardiology if continue to have arrythmias GI: Nutrition per dietary and GI prophylaxis per routine. Patient has chronic diarrhea and suspect intravascular volume depetion. Heme: DVT prophylaxis per routine ID: Continue antibiotics and plan to de-escalation Renal; urine out put and renal funtion reviewed. I suspect acute on chronic renal failure and may need nephrology for renal replacement therapy if no improvement. Endorcine: blood glucose is monitored Lines: all lines checked and no evidence of infections Skin: skin care to prevent pressure ulcers per nursing routine care I spent 35 min of Critical Care time with this patient. It involved decision making of high complexity to assess, manipulate, and support vital organ system failure and/or to prevent further life threatening deterioration of the patient's condition. The time involved in the performance of separately reportable procedures was not counted toward critical care time.
[2018-05-10] MEDS: FentaNYL (PF) 1,000 MCG in 0.9 % Sodium Chloride 80 ML IVC SCH ×2 (12:04→17:41)
[2018-05-10 16:14] LABS: VBG Ionized Calcium 1.08 mmol/L (1.15-1.35)
[2018-05-10 16:30] LABS: Magnesium 1.6 mg/dL (1.6-2.6); Phosphorous 4.5 mg/dL (2.7-4.5)
[2018-05-10] MEDS ORDERED: *HR* Atropine Sulfate 1 MG/10 ML SYRINGE ONE (17:20)
[2018-05-10] MEDS ORDERED: Lidocaine -MPF 1% 5 ML AMPUL ONE (22:41)
[2018-05-10 23:03] LABS: VBG Ionized Calcium 1.17 mmol/L (1.15-1.35)
[2018-05-11] MEDS: FentaNYL (PF) 1,000 MCG in 0.9 % Sodium Chloride 80 ML IVC SCH (01:12)
[2018-05-11 04:51] LABS: ABG Base Excess -8 mEq/L (-2 to 3); ABG HCO3 17 mEq/L (21-27); ABG Oxygen Saturation 98 % (95-98); ABG PCO2 33 mmHg (35-45); ABG PH 7.33 pH Units (7.32-7.45); ABG PO2 110 mmHg (85-104); ABG TCO2 18 mEq/L (20-26); Blood Gas Modality ASSIST CONTROL; Blood Gas PEEP 5 cm H2O; Blood Gas Respiration Rate 12; Blood Gas VT 550 cc
[2018-05-11 10:55] LABS: Basophils # 0.1 K/mcL (0.0-0.2); Basophils % 0.6 %; Eosinophils # 0.2 K/mcL (0.0-0.6); Hematocrit 27.2 % (35.3-44.9); Hemoglobin 8.7 g/dL (11.5-15.4); Immature Granulocytes % 0.3 % (0-4); Lymphocytes # 2.8 K/mcL (0.6-4.6); Lymphocytes % 25.2 %; Mean Corpuscular Hemoglobin 29.7 pg (28.0-33.3); Mean Corpuscular Volume 92.8 fL (83.0-100.0); Mean Platelet Volume 9.4 fL (9.4-12.4); Monocytes # 1.3 K/mcL (0.0-1.3); Monocytes % 11.5 %; Neutrophils # 6.6 K/mcL (1.6-8.9); Platelet Count 211 K/mcL (140-400); Red Blood Count 2.93 M/mcL (3.82-4.97); Red Cell Distribution Width 13.2 % (11.5-14.5); Segmented Neutrophils % 60.4 %
--- NOTE | 2018-05-11 11:48 | Pulmonology Progress Note ---
<ZiacapriOlivier - Last Filed: 05/11/18 16:28> Time of Encounter: 11:47 Assessment and Plan (1) Septic shock Current Visit: Yes Status: Acute Syncopal episode experienced after undergoing thyroid biopsy Initially hypotensive despite IV fluid resuscitation-started on Levophed Patient positive for diarrhea with CT scan revealing large amount of liquid stool-patient has history of diverticulitis and Salmonella and C. difficile enteritis. Lactic acid currently normal at 1.1 at last check (05/09/2018) Patient weaned off Levophed-maintaining blood pressure normotensive range Patient is currently afebrile, non-tachycardic, non-tachypneic, normotensive, and without leukocytosis. (2) Acute respiratory failure with hypoxia Current Visit: Yes Status: Acute Altered mental status in the setting of perioral cyanosis and dyspnea Patient emergently intubated in [facility] ED Patient initially presented with metabolic acidosis-started on bicarbonate drip Metabolic acidosis likely secondary to diarrhea Chest x-ray negative for acute pulmonary process Head CT negative for intracranial pathology Patient was successfully weaned from mechanical ventilation on 05/11/2018 Patient became hypoxic and cyanotic on 4 L via nasal cannula and was transitioned to BiPAP 35% FiO2 ABG showed respiratory acidosis (pH 7.14)-pH now normalizing to 7.22 Patient tolerating BiPAP well Plan for outpatient follow-up for formal polysomnography study due to GREY Continue to monitor (3) Acute kidney injury superimposed on chronic kidney disease Current Visit: Yes Status: Acute Patient has a history of CKD4 Acute on chronic kidney injury likely secondary to hypotension Creatinine is currently 2.96-which is up from 2.69 05/10/2018. Patient given 40 units of Lasix to counteract worsening respiratory function on 05/11/2018 Repeat BMP to follow renal function, avoid nephrotoxic agents. (4) Infectious diarrhea Current Visit: Yes Status: Acute Patient likely experiences septic shock secondary to infectious diarrhea Patient has history of C. difficile colitis and Salmonella enteritis. CT abdomen and pelvis showed liquid stool within the colon without inflammatory change Stool panel negative for C. difficile Patient currently receiving ciprofloxacin and Flagyl Strictly monitor intake and output with IV fluids to replace GI loss. (5) Hyperkalemia Current Visit: Yes Status: Acute Last potassium level 3.7 Patient has received a total of 10 L of fluid Continue to monitor her electrolytes (6) DVT prophylaxis Current Visit: No Status: Acute 5000 units subcutaneous heparin 3 times a day Subjective Principal diagnosis: Syncope Interval history: Patient is a 62-year-old female who presented to [facility] ICU from outpatient surgery after having a syncopal episode immediately following a thyroid biopsy. Rapid response was called to ultrasound bed 3 due to the patient stating that she was having chest pains and difficulty breathing in association with diaphoresis. Patient was sent to the ED where she became hypotensive and hypoxic with perioral cyanosis noted. Patient blood pressures were nonresponsive IV fluids and further decompensation in patient status occurred. The patient was intubated and placed on pressors via a central line. 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 difficile. The patient successfully passed BiPAP test and has been weaned off the ventilator and sedation. Pressors stopped and patient is maintaining blood pressure in the 120s over 60s. Atrial fibrillation noted on the monitor last evening has spontaneously resolved. The patient is alert to verbal stimuli and responds appropriately, although is still very sleepy. Patient became hypoxic and cyanotic-likely due to GREY while recovering from sedation-placed on BiPAP, tolerating well. Objective PUL Vital signs: Last Vital Signs Temp 98.4 F 05/11/18 00:00 Pulse 82 05/11/18 01:00 Resp 12 05/11/18 01:10 BP 111/77 05/11/18 01:10 Pulse Ox 100 05/11/18 01:10 General appearance: no acute distress, asleep (Patient is asleep but alert to verbal stimuli) Eyes: nonicteric ENT: oropharynx moist Effort: normal Auscultation: bilateral: clear Cardiovascular: regular rate and rhythm Gastrointestinal: normoactive bowel sounds, soft, non-tender, non-distended Extremities: no cyanosis, no edema non-focal exam Results - Laboratory Findings CBC and BMP: 05/11/18 04:05 05/11/18 04:05 ABG ABG pH 7.33 pH Units (7.32-7.45) 05/11/18 04:47 ABG pCO2 33 mmHg (35-45) L 05/11/18 04:47 ABG pO2 110 mmHg (85-104) H 05/11/18 04:47 ABG O2 Saturation 98 % (95-98) 05/11/18 04:47 PT/INR, D-dimer PT 12.1 Seconds (9.4-12.1) 05/09/18 13:59 Abnormal lab findings: Abnormal lab results WBC 15.3 K/mcL (4.3-11.1) H D 05/10/18 03:40 RBC 3.17 M/mcL (3.82-4.97) L 05/10/18 03:40 Hgb 9.5 g/dL (11.5-15.4) L D 05/10/18 03:40 Hct 29.5 % (35.3-44.9) L 05/10/18 03:40 Neutrophils # 12.8 K/mcL (1.6-8.9) H 05/10/18 03:40 Reactive Lymphocytes Present (Not Present) A 05/09/18 13:59 ABG pCO2 33 mmHg (35-45) L 05/11/18 04:47 ABG pO2 110 mmHg (85-104) H 05/11/18 04:47 ABG HCO3 17 mEq/L (21-27) L 05/11/18 04:47 ABG Total CO2 18 mEq/L (20-26) L 05/11/18 04:47 ABG Base Excess -8 mEq/L (-2 to 3) L 05/11/18 04:47 VBG pH 7.01 pH Units (7.32-7.42) L* 05/09/18 16:26 VBG pCO2 38 mmHg (41-51) L 05/09/18 16:26 VBG pO2 210 mmHg (25-50) H 05/09/18 16:26 VBG HCO3 10 mEq/L (21-27) L 05/09/18 16:26 Chloride 114 mEq/L (98-107) H 05/10/18 03:40 Carbon Dioxide 18 mEq/L (23-29) L 05/10/18 03:40 BUN 31 mg/dL (8-23) H 05/10/18 03:40 Creatinine 2.69 mg/dL (0.60-1.20) H 05/10/18 03:40 Est GFR ( Amer) 22 (> 60) L 05/10/18 03:40 Est GFR (Non-Af Amer) 18 (> 60) L 05/10/18 03:40 Glucose 210 mg/dL (70-105) H 05/10/18 03:40 POC Glucose 108 mg/dL (70-99) H 05/10/18 23:24 Calculated Osmolality 301 (280-300) H 05/10/18 03:40 Calcium 7.0 mg/dL (8.6-10.3) L 05/10/18 03:40 AST 10 Units/L (13-39) L 05/09/18 21:00 ALT 6 Units/L (7-52) L 05/09/18 21:00 Serum Total Protein 5.5 g/dL (6.4-8.9) L 05/09/18 21:00 Globulin 1.8 g/dL (2.4-3.5) L 05/09/18 21:00 Urine Clarity Cloudy (Clear) A 05/09/18 22:38 Urine Protein 30 mg/dL (Neg-Trace) H 05/09/18 22:38 Urine Blood Moderate (Negative) H 05/09/18 22:38 Ur Leukocyte Esterase Small (Negative) H 05/09/18 22:38 Urine Microscopic RBC 15-30 per hpf (0-3) H 05/09/18 22:38 Urine Microscopic WBC 15-30 per hpf (0-3) H 05/09/18 22:38 Ur Squamous Epith Cells Many per lpf (None-Few) H 05/09/18 22:38 Urine Yeast Few per hpf (None Seen) H 05/09/18 22:38 Ur Culture Indicated? NO. (NO) A 05/09/18 22:38 - Microbiology Findings Microbiology Findings: Microbiology, Last 48 Hours 05/09/18 14:43 Blood Culture - Preliminary Peripheral Venipuncture Culture is incubating and being continuously mon itored for growth. Final report to follow. 05/09/18 13:57 Blood Culture - Preliminary Peripheral Venipuncture Culture is incubating and being continuously monitored for growth. Final report to follow. - Clinical Findings Intake & Output: Intake & Output 05/10/18 05/11/18 05/11/18 23:59 07:59 15:59 Intake Total 874.3 / 874.3 100 / 100 Output Total 620 / 620 500 / 500 Balance 254.3 / 254.3 -400 / -400 Weight 118.85 kg Consult Discharge Plan - Plan Referrals: Aranza Ring [Primary Care Provider] - <Martin Diaz - Last Filed: 05/11/18 21:48> Date of Encounter: 05/11/18 Objective PUL Vital signs: Last Vital Signs Temp 98.0 F 05/11/18 13:00 Pulse 78 05/11/18 15:00 Resp 12 05/11/18 15:00 BP 95/53 05/11/18 15:00 Pulse Ox 100 05/11/18 15:00 Ventilator Settings Ventilator Settings: Ventilator Settings, Last 8 Hours Ventilator Tidal Volume 550 Setting Actual Respiratory Rate 11 Positive End Expiratory 5 Pressure Peak Inspiratory Airway 14 Pressure Results - Laboratory Findings CBC and BMP: 05/11/18 04:05 05/11/18 04:05 ABG ABG pH 7.22 pH Units (7.32-7.45) L 05/11/18 14:06 ABG pCO2 49 mmHg (35-45) H 05/11/18 14:06 ABG pO2 96 mmHg (85-104) 05/11/18 14:06 ABG O2 Saturation 96 % (95-98) 05/11/18 14:06 PT/INR, D-dimer PT 12.1 Seconds (9.4-12.1) 05/09/18 13:59 Abnormal lab findings: Abnormal lab results RBC 2.93 M/mcL (3.82-4.97) L 05/11/18 04:05 Hgb 8.7 g/dL (11.5-15.4) L 05/11/18 04:05 Hct 27.2 % (35.3-44.9) L 05/11/18 04:05 Reactive Lymphocytes Present (Not Present) A 05/09/18 13:59 ABG pH 7.22 pH Units (7.32-7.45) L 05/11/18 14:06 ABG pCO2 49 mmHg (35-45) H 05/11/18 14:06 ABG HCO3 20 mEq/L (21-27) L 05/11/18 14:06 ABG Base Excess -8 mEq/L (-2 to 3) L 05/11/18 14:06 VBG pH 7.01 pH Units (7.32-7.42) L* 05/09/18 16:26 VBG pCO2 38 mmHg (41-51) L 05/09/18 16:26 VBG pO2 210 mmHg (25-50) H 05/09/18 16:26 VBG HCO3 10 mEq/L (21-27) L 05/09/18 16:26 Chloride 114 mEq/L (98-107) H 05/11/18 04:05 Carbon Dioxide 19 mEq/L (23-29) L 05/11/18 04:05 BUN 26 mg/dL (8-23) H 05/11/18 04:05 Creatinine 2.96 mg/dL (0.60-1.20) H 05/11/18 04:05 Est GFR ( Amer) 19 (> 60) L 05/11/18 04:05 Est GFR (Non-Af Amer) 16 (> 60) L 05/11/18 04:05 Glucose 126 mg/dL (70-105) H 05/11/18 04:05 POC Glucose 108 mg/dL (70-99) H 05/10/18 23:24 Calcium 7.9 mg/dL (8.6-10.3) L 05/11/18 04:05 AST 10 Units/L (13-39) L 05/09/18 21:00 ALT 6 Units/L (7-52) L 05/09/18 21:00 Serum Total Protein 5.5 g/dL (6.4-8.9) L 05/09/18 21:00 Globulin 1.8 g/dL (2.4-3.5) L 05/09/18 21:00 Urine Clarity Cloudy (Clear) A 05/09/18 22:38 Urine Protein 30 mg/dL (Neg-Trace) H 05/09/18 22:38 Urine Blood Moderate (Negative) H 05/09/18 22:38 Ur Leukocyte Esterase Small (Negative) H 05/09/18 22:38 Urine Microscopic RBC 15-30 per hpf (0-3) H 05/09/18 22:38 Urine Microscopic WBC 15-30 per hpf (0-3) H 05/09/18 22:38 Ur Squamous Epith Cells Many per lpf (None-Few) H 05/09/18 22:38 Urine Yeast Few per hpf (None Seen) H 05/09/18 22:38 Ur Culture Indicated? NO. (NO) A 05/09/18 22:38 - Microbiology Findings Microbiology Findings: Microbiology, Last 48 Hours 05/09/18 14:43 Blood Culture - Preliminary Peripheral Venipuncture Culture is incubating and being continuously monitored for growth. Final report to follow. 05/09/18 13:57 Blood Culture - Preliminary Peripheral Venipuncture Culture is incubating and being continuously monitored for growth. Final report to follow. - Clinical Findings Intake & Output: Intake & Output 05/11/18 05/11/18 05/11/18 07:59 15:59 23:59 Intake Total 200 / 200 105 / 105 Output Total 500 / 500 Balance -300 / -300 105 / 105 Weight 118.85 kg - Attending Attestation I examined this patient and my medical decision-making was reviewed with the Resident Physician. I agree with the documented findings, disposition and treatment plan as described except to the extent set forth below. Patient seen and examined. Labs, radiology, chart personally reviewed. 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 Pulmonary: Acceptable oxygenation and ventilation, Patient tolerated SBT and was extubated successfully, however she had respiratory distress and ABG was done with evidence of acute respiratory acidosis with hypercapnic respiratory f ailure. Patient was placed on NIVPP and interface was changed to be more comfortable and patient generating great tidal volume and decided to monitor closely and repeated ABG is acceptable and will continue monitoring in ICU for now.If worsen, will need to be re-intubated. Cardiovascular: Patient on vasopressor and when she was awaken for SBT her BP has improved and off pressors. GI: Nutrition per dietary and GI prophylaxis per routine. Patient at risk of aspiration and keep NPO for now Heme: DVT prophylaxis per routine ID: Continue antibiotics and plan to de-escalation Renal; urine out put and renal funtion reviewed. Patient has significant fluid for her septic shock and will start to diuresis some. Might need nephrology. Endorcine: blood glucose is monitored Lines: all lines checked and no evidence of infections Skin: skin care to prevent pressure ulcers per nursing routine care Discussed with family at bedside. Critical care performed: Time is exclusive of separately billable procedures. Time includes: direct patient care, patient reassessment, coordination of patient care, interpretation of data (laboratory data, radiology data, and respiratory data), review of sharon ent's medical records, medical consultation and documentation of patient care. Procedures excluded from critical care time: 32 minutes.
[2018-05-11] MEDS ORDERED: Ipratropium/Albuterol Neb 3 ML IH ONE (12:07)
[2018-05-11 12:23] LABS: Calcium 7.9 mg/dL (8.6-10.3); Potassium 3.7 mEq/L (3.5-5.1)
[2018-05-11 12:25] LABS: ABG Base Excess -8 mEq/L (-2 to 3); ABG HCO3 21 mEq/L (21-27); ABG Oxygen Saturation 80 % (95-98); ABG PCO2 61 mmHg (35-45); ABG PH 7.14 pH Units (7.32-7.45); ABG PO2 59 mmHg (85-104); ABG TCO2 23 mEq/L (20-26); Blood Gas Modality BiLevel; Blood Gas PEEP 12 cm H2O; Blood Gas Pressure Support 6 cm H2O
[2018-05-11] MEDS ORDERED: Furosemide 40 MG/4 ML VIAL IVP ONE (12:36)
--- NOTE | 2018-05-11 13:40 | Electrocardiograph Report ---
[address] [place], [place] [address] Test Date: 2018-05-10 Pat Name: Toña Deleon Department: 112 Room: 11 Gender: F Right Of Way Clearer: : 1955 Requested By: Callum Recio Order Number: [id number] Reading MD: Dary Rainey Measurements Intervals [place] Rate: 87 P: NC: 0 QRS: 17 QRSD: 102 T: 33 QT: 371 QTc: 416 Interpretive Statements ATRIAL FIBRILLATION NONSPECIFIC ST & T-WAVE ABNORMALITY ABNORMAL RHYTHM ECG Electronically Signed On 05-11-2018 13:39:34 EDT by Dary Rainey
[2018-05-11 14:10] LABS: ABG Base Excess -8 mEq/L (-2 to 3); ABG HCO3 20 mEq/L (21-27); ABG Oxygen Saturation 96 % (95-98); ABG PCO2 49 mmHg (35-45); ABG PH 7.22 pH Units (7.32-7.45); ABG PO2 96 mmHg (85-104); ABG TCO2 21 mEq/L (20-26); Blood Gas PEEP 7 cm H2O
[2018-05-11] MEDS ORDERED: *HR* Heparin 5,000 UNIT/ML VIAL IVP ONE (14:26)
[2018-05-11] MEDS ORDERED: MetroNIDAZOLE 500 MG/100 ML BAG IVPB ONE (14:26)
[2018-05-11] MEDS ORDERED: POTASSIUM CHLORIDE 20 MEQ/100 ML IVPB ONE (14:26)
[2018-05-11] MEDS ORDERED: Chlorhexidine Rinse 15 ML MOUTHWASH PO ONE (14:26)
[2018-05-11] MEDS ORDERED: Famotidine 20 MG/2 ML VIAL IVP ONE (14:26)
[2018-05-11] MEDS ORDERED: Cholestyramine 4 GM POWD.PACK PO ONE (14:26)
[2018-05-11] MEDS: *HR* Heparin 5,000 UNIT/ML VIAL SQ SCH ×3 (16:05→22:10)
[2018-05-11] MEDS: Artificial Tears SOLN 15 ML BOTTLE BOTH EYES SCH ×6 (16:05→23:48)
[2018-05-11] MEDS: Insulin LISPRO 300 UNITS/3 ML VIAL SQ SCH ×4 (16:05→23:48)
[2018-05-11] MEDS: Chlorhexidine Rinse 15 ML MOUTHWASH MM SCH ×2 (16:06→20:34)
[2018-05-11] MEDS: MetroNIDAZOLE 500 MG/100 ML 500 MG/100 ML BAG IVPB SCH ×3 (16:06→23:48)
[2018-05-11] MEDS: Cholestyramine 4 GM POWD.PACK PO SCH ×4 (16:06→20:34)
[2018-05-11] MEDS: Famotidine 20 MG/2 ML VIAL IVP SCH (16:07)
[2018-05-11] MEDS: Dexmedetomidine HCl 400 MCG/100 ML MLS IVC SCH (20:34)
[2018-05-11 21:07] LABS: ABG Base Excess -5 mEq/L (-2 to 3); ABG HCO3 21 mEq/L (21-27); ABG Oxygen Saturation 98 % (95-98); ABG PCO2 46 mmHg (35-45); ABG PH 7.27 pH Units (7.32-7.45); ABG PO2 112 mmHg (85-104); ABG TCO2 23 mEq/L (20-26); Blood Gas Modality NIV; Blood Gas PEEP 7 cm H2O
[2018-05-12] MEDS: Artificial Tears SOLN 15 ML BOTTLE BOTH EYES SCH ×2 (03:40→08:10)
[2018-05-12 04:33] LABS: Basophils % 0.4 %; Eosinophils # 0.3 K/mcL (0.0-0.6); Eosinophils % 2.7 %; Hematocrit 24.3 % (35.3-44.9); Immature Granulocytes % 0.4 % (0-4); Lymphocytes # 1.7 K/mcL (0.6-4.6); Lymphocytes % 17.9 %; Mean Corpuscular HGB Conc 31.3 g/dL (31.6-35.5); Mean Corpuscular Hemoglobin 29.7 pg (28.0-33.3); Mean Corpuscular Volume 94.9 fL (83.0-100.0); Mean Platelet Volume 9.2 fL (9.4-12.4); Monocytes # 1.1 K/mcL (0.0-1.3); Monocytes % 11.6 %; Neutrophils # 6.3 K/mcL (1.6-8.9); Platelet Count 159 K/mcL (140-400); Red Blood Count 2.56 M/mcL (3.82-4.97); Red Cell Distribution Width 13.4 % (11.5-14.5)
[2018-05-12 04:35] LABS: VBG Ionized Calcium 1.24 mmol/L (1.15-1.35)
[2018-05-12 04:40] LABS: Hemoglobin 7.6 g/dL (11.5-15.4)
[2018-05-12 04:41] LABS: Calcium 8.7 mg/dL (8.6-10.3); Phosphorous 4.7 mg/dL (2.7-4.5); Potassium 3.9 mEq/L (3.5-5.1)
[2018-05-12] MEDS: *HR* Heparin 5,000 UNIT/ML VIAL SQ SCH ×3 (05:15→22:27)
[2018-05-12] MEDS: Insulin LISPRO 300 UNITS/3 ML VIAL SQ SCH ×4 (05:24→22:28)
[2018-05-12 05:59] LABS: ABG Base Excess -3 mEq/L (-2 to 3); ABG HCO3 23 mEq/L (21-27); ABG Oxygen Saturation 98 % (95-98); ABG PCO2 50 mmHg (35-45); ABG PH 7.28 pH Units (7.32-7.45); ABG PO2 116 mmHg (85-104); ABG TCO2 25 mEq/L (20-26); Blood Gas Modality NIV; Blood Gas PEEP 7 cm H2O
[2018-05-12] MEDS ORDERED: Ipratropium/Albuterol Neb 3 ML IH ONE (06:58)
[2018-05-12] MEDS ORDERED: Furosemide 40 MG/4 ML VIAL IVP ONE ×2 (07:14→15:13)
[2018-05-12] MEDS: methylPREDNISolone 125 MG/2 ML VIAL IVP SCH ×3 (08:08→23:42)
[2018-05-12] MEDS: Famotidine 20 MG/2 ML VIAL IVP SCH (08:09)
[2018-05-12] MEDS: Cholestyramine 4 GM POWD.PACK PO SCH ×4 (08:09→22:27)
[2018-05-12] MEDS: MetroNIDAZOLE 500 MG/100 ML 500 MG/100 ML BAG IVPB SCH (08:09)
[2018-05-12] MEDS: Chlorhexidine Rinse 15 ML MOUTHWASH MM SCH (08:11)
--- NOTE | 2018-05-12 08:47 | Nephrology Consult Note ---
Date of Encounter: 05/12/18 Time of Encounter: 08:46 Assessment and Plan (1) Acute kidney injury superimposed on chronic kidney disease Current Visit: Yes Status: Acute Patient has CKD with a baseline eGFR in the low 20s. Her renal function has decreased to an eGFR of 15 in the face of hypovolemic shock that is now improved and progressive anemia. She has multifactorial prerenal azotemia/ATN. With her decreasing hemoglobin I will recommend transfusion of at least one unit of packed red blood cells. I will defer workup for the cause of her anemia to her primary team. Avoid nephrotoxins. Titrate medications for her renal function. She had a recent CT scan of her abdomen that was negative for hydronephrosis so I do not think she needs a renal ultrasound at this time. I will perform a limited workup for acute kidney injury as she has a likely clinical cause for her renal decline. I spoke with the patient as well as her and let them know that there is a possibility of the need for dialysis, however, at this time I do not think she warrants renal replacement therapy. At this time she does not warrant a renal biopsy. (2) Shock Current Visit: Yes Status: Acute Improved. She is not on pressors. She would benefit from a blood transfusion. (3) Diarrhea Current Visit: Yes Status: Acute Per the primary team. Patient reports this is improved. Qualifiers: Diarrhea type: unspecified type Qualified Code(s): R19.7 - Diarrhea, unspecified (4) Metabolic acidosis Current Visit: Yes Status: Acute Resolved. (5) Anemia Current Visit: No Status: Chronic Defer work-up to primary team. Qualifiers: Anemia type: unspecified type Qualified Code(s): D64.9 - Anemia, unspecified (6) Sepsis Current Visit: No Status: Resolved Per the primary team. Qualifiers: Sepsis type: Salmonella Qualified Code(s): A02.1 - Salmonella sepsis (7) Blurred vision Current Visit: Yes Status: Acute Defer to the primary team. History of Present Illness - Reason for Consult Consult date: 05/12/18 Acute Kidney Injury, Chronic Kidney Disease - Chief Complaint JEFF on CKD - History of Present Illness Ms. Deleon is a 62 yo woman with a history of CKD who presented for a thyroid biopsy. Her post procedure course was complicated by hypotension and she was transferred to the ICU. She has experienced both hydration and diuresis and her renal function has undulated. She was seen with her at her bedside. She has no new complaint other than feeling frustrated that she has some blurring of her vision. She was having diarrhea, but no nausea or vomiting. She denies chest pain and states her breathing has improved. Past Med Surg Social Fam HX - Past Medical History Medical history: asthma, GERD, hyperlipidemia, hypertension, renal disease, othe r Additional medical history: diverticulitis Psychiatric history: anxiety, depression - Past Surgical History Surgical History: appendectomy, cholecystectomy, herniorrhaphy Additional surgical history: bilateral knees - Social History Smoking Status: Never smoker Smokeless Tobacco Status: No Alcohol use: none Drug use: none - Family History Mother Living Status: Still Living Hx Family Cardiac Disorders: Yes (CABG) Hx Family Neurologic Disorders: Yes (DEMENTIA) Father Living Status: Medications and Allergies Albuterol Sulfate [Ventolin Hfa] 2 puff IH Q4-6H PRN 01/20/17 [History] Ascorbic Acid [Vitamin C] 500 mg PO DAILY 01/20/17 [History] Bupropion HCl [Wellbutrin Xl] 300 mg PO DAILY 01/20/17 [History] Cholecalciferol (Vitamin D3) [Vitamin D3] 5,000 unit PO DAILY 01/20/17 [History] Cyanocobalamin (Vitamin B-12) [Vitamin B12] 1,000 mcg PO DAILY 01/20/17 [History] Folic Acid 1 mg PO DAILY 01/20/17 [History] Gabapentin [Neurontin] 600 mg PO HS 03/16/17 [History] Trazodone HCl 200 mg PO HS 04/22/17 [History] Iron Ag,Ps/C/Fa6/B12/Zn/SA/Sto [Niferex Tablet] 1 each PO DAILY 11/06/17 [History] Mometasone/Formoterol [Dulera 200 Mcg/5 Mcg Inhaler] 2 puff IH BID 11/07/17 [History] Paroxetine [Paxil] 30 mg PO DAILY 12/18/17 [History] Calcitriol [Rocaltrol] 0.25 mcg PO DAILY 01/30/18 [History] Dicyclomine [Bentyl] 20 mg PO QID 01/30/18 [History] Famotidine [Pepcid] 20 mg PO HS tablet 01/31/18 [Rx] Lisinopril [Zestril] 20 mg PO DAILY 05/09/18 [History] Allergy/AdvReac Type Severity Reaction Status Date / Time codeine AdvReac Nausea Verified 12/18/17 14:53 morphine AdvReac Nausea Verified 12/18/17 14:53 Penicillins [PCN] AdvReac Rash Verified 12/18/17 14:53 Sulfa (Sulfonamide AdvReac Rash Verified 12/18/17 14:53 Antibiotics) Review of Systems All Systems: reviewed and no additional remarkable complaints except as stated (As documented in history of present illness) Exam - Vital Signs Vital signs: Initial Vital Signs Temp Pulse Resp BP Pulse Ox 97.7 F 95 26 85/66 90 05/09/18 13:37 05/09/18 13:37 05/09/18 13:37 05/09/18 13:37 05/09/18 13:37 Vital Signs - Last 8 Hours Temp Pulse Resp BP Pulse Ox 05/12/18 08:00 99.2 F 05/12/18 07:36 26 100 05/12/18 06:00 62 14 107/43 100 05/12/18 05:20 16 100/48 100 05/12/18 05:00 67 17 100/48 100 05/12/18 04:00 65 17 99/43 99 05/12/18 03:38 99.4 F 05/12/18 03:00 63 16 113/58 99 05/12/18 02:00 68 19 110/39 100 05/12/18 01:00 69 16 122/63 100 Intake and Output 05/11/18 05/12/18 05/12/18 23:59 07:59 15:59 Intake Total 100 / 100 100 / 100 Output Total 2425 / 2425 1999 600 / 600 Balance -2325 / -2325 -1900 / -1900 -600 / -600 Intake: IV Fluids 100 / 100 100 / 100 Flagyl Premix 500 MG/100 ML 500 100 / 100 100 / 100 mg In 100 ml @ 100 mls/hr IVPB Q8HR [facility] Rx#:[id number] Output: Catheter 2425 / 2425 1999 600 / 600 Other: Blood Glucose* 93 - General Appearance General appearance: well-developed, well-nourished EENT: ATNC Neck: supple Respiratory: course breath sounds Cardiology: no edema, regular rate, regular rhythm Gastrointestinal: no tenderness Integumentary: warm and dry Neurologic: alert and oriented x3 Musculoskeletal: no cyanosis Psychiatric: mood/affect appropriate Results - Lab Results 05/12/18 04:17 05/12/18 04:17 Most recent lab results ABG pH 7.28 pH Units (7.32-7.45) L 05/12/18 05:55 ABG pCO2 50 mmHg (35-45) H 05/12/18 05:55 ABG pO2 116 mmHg (85-104) H 05/12/18 05:55 ABG HCO3 23 mEq/L (21-27) 05/12/18 05:55 ABG O2 Saturation 98 % (95-98) 05/12/18 05:55 Calcium 8.7 mg/dL (8.6-10.3) 05/12/18 04:17 Phosphorus 4.7 mg/dL (2.7-4.5) H 05/12/18 04:17 Magnesium 2.0 mg/dL (1.6-2.6) 05/12/18 04:17 Consult Discharge Plan - Plan Referrals: Aranza Ring [Primary Care Provider] -
--- NOTE | 2018-05-12 08:47 | Pulmonology Progress Note ---
<Martin Diaz M - Last Filed: 05/12/18 09:23> Objective PUL Vital signs: Last Vital Signs Temp 99.2 F 05/12/18 08:00 Pulse 62 05/12/18 06:00 Resp 26 05/12/18 07:36 BP 107/43 05/12/18 06:00 Pulse Ox 100 05/12/18 07:36 Results - Laboratory Findings CBC and BMP: 05/12/18 04:17 05/12/18 04:17 ABG ABG pH 7.28 pH Units (7.32-7.45) L 05/12/18 05:55 ABG pCO2 50 mmHg (35-45) H 05/12/18 05:55 ABG pO2 116 mmHg (85-104) H 05/12/18 05:55 ABG O2 Saturation 98 % (95-98) 05/12/18 05:55 PT/INR, D-dimer PT 12.1 Seconds (9.4-12.1) 05/09/18 13:59 Abnormal lab findings: Abnormal lab results RBC 2.56 M/mcL (3.82-4.97) L 05/12/18 04:17 Hgb 7.6 g/dL (11.5-15.4) L 05/12/18 04:17 Hct 24.3 % (35.3-44.9) L 05/12/18 04:17 MCHC 31.3 g/dL (31.6-35.5) L 05/12/18 04:17 MPV 9.2 fL (9.4-12.4) L 05/12/18 04:17 Reactive Lymphocytes Present (Not Present) A 05/09/18 13:59 ABG pH 7.28 pH Units (7.32-7.45) L 05/12/18 05:55 ABG pCO2 50 mmHg (35-45) H 05/12/18 05:55 ABG pO2 116 mmHg (85-104) H 05/12/18 05:55 ABG Base Excess -3 mEq/L (-2 to 3) L 05/12/18 05:55 VBG pH 7.01 pH Units (7.32-7.42) L* 05/09/18 16:26 VBG pCO2 38 mmHg (41-51) L 05/09/18 16:26 VBG pO2 210 mmHg (25-50) H 05/09/18 16:26 VBG HCO3 10 mEq/L (21-27) L 05/09/18 16:26 Chloride 113 mEq/L (98-107) H 05/12/18 04:17 Creatinine 3.13 mg/dL (0.60-1.20) H 05/12/18 04:17 Est GFR ( Amer) 18 (> 60) L 05/12/18 04:17 Est GFR (Non-Af Amer) 15 (> 60) L 05/12/18 04:17 Glucose 109 mg/dL (70-105) H 05/12/18 04:17 Phosphorus 4.7 mg/dL (2.7-4.5) H 05/12/18 04:17 AST 10 Units/L (13-39) L 05/09/18 21:00 ALT 6 Units/L (7-52) L 05/09/18 21:00 Serum Total Protein 5.5 g/dL (6.4-8.9) L 05/09/18 21:00 Globulin 1.8 g/dL (2.4-3.5) L 05/09/18 21:00 Urine Clarity Cloudy (Clear) A 05/09/18 22:38 Urine Protein 30 mg/dL (Neg-Trace) H 05/09/18 22:38 Urine Blood Moderate (Negative) H 05/09/18 22:38 Ur Leukocyte Esterase Small (Negative) H 05/09/18 22:38 Urine Microscopic RBC 15-30 per hpf (0-3) H 05/09/18 22:38 Urine Microscopic WBC 15-30 per hpf (0-3) H 05/09/18 22:38 Ur Squamous Epith Cells Many per lpf (None-Few) H 05/09/18 22:38 Urine Yeast Few per hpf (None Seen) H 05/09/18 22:38 Ur Culture Indicated? NO. (NO) A 05/09/18 22:38 - Clinical Findings Intake & Output: Intake & Output 05/11/18 05/12/18 05/12/18 23:59 07:59 15:59 Intake Total 100 / 100 100 / 100 Output Total 2425 / 2425 1999 / 1999 600 / 600 Balance -2325 / -2325 -1900 / -1900 -600 / -600 Consult Discharge Plan - Plan Referrals: Aranza Ring [Primary Care Provider] - - Attending Attestation I examined this patient and my medical decision-making was reviewed with the Resident Physician. I agree with the documented findings, disposition and treatment plan as described except to the extent set forth below. Patient seen and examined. Labs, radiology, chart personally reviewed. Agree with resident's history and physical, assessment, plan with following comments: [employer]: Patient follows simple commands, will check head CT Pulmonary: Acceptable oxygenation and ventilation. Patient remained on noninvasive ventilation and because of the history of asthma she might have a bronchospasm as well as suspect pulmonary edema from fluid resuscitation. We will start patient on systemic steroid and continue bronchodilators and keep in ICU for close monitoring for now. Cardiovascular: stable GI: Nutrition per dietary and GI prophylaxis per routine Heme: DVT prophylaxis per routine. Hemoglobin and anemia is not clear clinically with the results blood loss or from fluid resuscitation. Patient will receive one pack RBC and diuresis. ID: Continue antibiotics and plan to de-escalation Renal; urine out put and renal funtion reviewed. Nephrology consultation. Patient has evidence of combined non-gap acidosis and acute respiratory acidosis. BiPAP is helping and hold any IV fluid for now. Endorcine: blood glucose is monitored Lines: all lines checked and no evidence of infections Skin: skin care to prevent pressure ulcers per nursing routine care <Olivier Degroot - Last Filed: 05/12/18 09:36> Date of Encounter: 05/12/18 Time of Encounter: 08:48 Assessment and Plan (1) Septic shock Current Visit: Yes Status: Acute Syncopal episode experienced after undergoing thyroid biopsy Initially hypotensive despite IV fluid resuscitation-started on Levophed Patient positive for diarrhea with CT scan revealing large amount of liquid stool-patient has history of diverticulitis and Salmonella and C. difficile enteritis. Lactic acid currently normal at 1.1 at last check (05/09/2018) Patient weaned off Levophed-maintaining blood pressure normotensive range Patient is currently afebrile, non-tachycardic, non-tachypneic, normotensive, and without leukocytosis. Patient continues to appear altered, complains of vision abnormality, failed visual field testing-head CT to assess for intracranial pathology Strength/motor/sensation are intact bilaterally (2) Acute respiratory failure with hypoxia Current Visit: Yes Status: Acute Altered mental status in the setting of perioral cyanosis and dyspnea Patient emergently intubated in [facility] ED Patient was successfully weaned from mechanical ventilation on 05/11/2018 Patient became hypoxic and cyanotic on 4 L via nasal cannula and was transitioned to BiPAP 35% FiO2 ABG showed respiratory acidosis (pH 7.14)-pH now normalizing to 7.22 Patient tolerating BiPAP well Patient continues to be in respiratory acidosis with pH of 7.28 and PCO2 of 50- metabolic acidosis component with HC03 at 23 (likely hyperchloremic acidosis due to fluid resuscitation). Patient continues to appear altered, complains of vision abnormality, failed visual field testing-head CT to assess for intracranial pathology Plan for outpatient follow-up for formal polysomnography study due to GREY Continue to monitor (3) Acute kidney injury superimposed on chronic kidney disease Current Visit: Yes Status: Acute Patient has a history of CKD4 Acute on chronic kidney injury likely secondary to hypotension Creatinine is continuing to trend upward and is currently at 3.13 Nephrology has been consulted and is following Hemoglobin currently trending downward at 7.6-1 unit PRBCs to be given per nephrology recommendation 40 mg Lasix given 05/10 and 05/11 due to concerns over respiratory status Repeat BMP to follow renal function, avoid nephrotoxic agents. (4) Infectious diarrhea Current Visit: Yes Status: Acute Patient likely experiences septic shock secondary to infectious diarrhea Patient has history of C. difficile colitis and Salmonella enteritis. CT abdomen and pelvis showed liquid stool within the colon without inflammatory change Stool panel negative for C. difficile Patient currently receiving ciprofloxacin and Flagyl Strictly monitor intake and output with IV fluids to replace GI loss. (5) Hyperkalemia Current Visit: Yes Status: Acute Last potassium level 3.7 Patient has received a total of 10 L of fluid Continue to monitor her electrolytes (6) DVT prophylaxis Current Visit: No Status: Acute 5000 units subcutaneous heparin 3 times a day Subjective Principal diagnosis: Syncope Interval history: Patient is a 62-year-old female who presented to [facility] ICU from outpatient surgery after having a syncopal episode immediately following a thyroid biopsy. Rapid response was called to ultrasound bed 3 due to the patient stating that she was having chest pains and difficulty breathing in association with diaphoresis. Patient was sent to the ED where she became hypotensive and hypoxic with perioral cyanosis noted. Patient blood pressures were nonresponsive IV fluids and further decompensation in patient status occurred. The patient was intubated and placed on pressors via a central line. 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 difficile. 05/11/2018: The patient successfully passed BiPAP test and has been weaned off the ventilator and sedation. Pressors stopped and patient is maintaining normal blood pressures. Patient became hypoxic and cyanotic-likely due to GREY while recovering from sedation-placed on BiPAP, tolerating well. 05/12/2018: Patient ABG still notes a respiratory acidosis with metabolic acidosis component-likely due to hyperchloremic acidosis caused by fluid resuscitation. Patient lung sounds with wheezing in upper lobes noted-patient given DuoNeb nebs and started on 60 mg Solu-Medrol Q8 hours as well as 40 mg Lasix once. In the light of the patient's rising creatinine, nephrology has been consulted and is following. We will reassess patient this afternoon with intent to transfer patient from ICU to stepdown unit. Objective PUL Vital signs: Last Vital Signs Temp 99.2 F 05/12/18 08:00 Pulse 62 05/12/18 06:00 Resp 26 05/12/18 07:36 BP 107/43 05/12/18 06:00 Pulse Ox 100 05/12/18 07:36 General appearance: no acute distress, asleep (Patient is asleep but responds to verbal stimuli) Eyes: nonicteric ENT: oropharynx moist Effort: normal (Patient is on BiPAP) Auscultation: bilateral: wheezes Cardiovascular: regular rate and rhythm Gastrointestinal: normoactive bowel sounds, soft, non-tender, non-distended Integumentary: normal Extremities: no cyanosis, no edema non-focal exam Results - Laboratory Findings CBC and BMP: 05/12/18 04:17 05/12/18 04:17 ABG ABG pH 7.28 pH Units (7.32-7.45) L 05/12/18 05:55 ABG pCO2 50 mmHg (35-45) H 05/12/18 05:55 ABG pO2 116 mmHg (85-104) H 05/12/18 05:55 ABG O2 Saturation 98 % (95-98) 05/12/18 05:55 PT/INR, D-dimer PT 12.1 Seconds (9.4-12.1) 05/09/18 13:59 Abnormal lab findings: Abnormal lab results RBC 2.56 M/mcL (3.82-4.97) L 05/12/18 04:17 Hgb 7.6 g/dL (11.5-15.4) L 05/12/18 04:17 Hct 24.3 % (35.3-44.9) L 05/12/18 04:17 MCHC 31.3 g/dL (31.6-35.5) L 05/12/18 04:17 MPV 9.2 fL (9.4-12.4) L 05/12/18 04:17 Reactive Lymphocytes Present (Not Present) A 05/09/18 13:59 ABG pH 7.28 pH Units (7.32-7.45) L 05/12/18 05:55 ABG pCO2 50 mmHg (35-45) H 05/12/18 05:55 ABG pO2 116 mmHg (85-104) H 05/12/18 05:55 ABG Base Excess -3 mEq/L (-2 to 3) L 05/12/18 05:55 VBG pH 7.01 pH Units (7.32-7.42) L* 05/09/18 16:26 VBG pCO2 38 mmHg (41-51) L 05/09/18 16:26 VBG pO2 210 mmHg (25-50) H 05/09/18 16:26 VBG HCO3 10 mEq/L (21-27) L 05/09/18 16:26 Chloride 113 mEq/L (98-107) H 05/12/18 04:17 Creatinine 3.13 mg/dL (0.60-1.20) H 05/12/18 04:17 Est GFR ( Amer) 18 (> 60) L 05/12/18 04:17 Est GFR (Non-Af Amer) 15 (> 60) L 05/12/18 04:17 Glucose 109 mg/dL (70-105) H 05/12/18 04:17 Phosphorus 4.7 mg/dL (2.7-4.5) H 05/12/18 04:17 AST 10 Units/L (13-39) L 05/09/18 21:00 ALT 6 Units/L (7-52) L 05/09/18 21:00 Serum Total Protein 5.5 g/dL (6.4-8.9) L 05/09/18 21:00 Globulin 1.8 g/dL (2.4-3.5) L 05/09/18 21:00 Urine Clarity Cloudy (Clear) A 05/09/18 22:38 Urine Protein 30 mg/dL (Neg-Trace) H 05/09/18 22:38 Urine Blood Moderate (Negative) H 05/09/18 22:38 Ur Leukocyte Esterase Small (Negative) H 05/09/18 22:38 Urine Microscopic RBC 15-30 per hpf (0-3) H 05/09/18 22:38 Urine Microscopic WBC 15-30 per hpf (0-3) H 05/09/18 22:38 Ur Squamous Epith Cells Many per lpf (None-Few) H 05/09/18 22:38 Urine Yeast Few per hpf (None Seen) H 05/09/18 22:38 Ur Culture Indicated? NO. (NO) A 05/09/18 22:38 - Clinical Findings Intake & Output: Intake & Output 05/11/18 05/12/18 05/12/18 23:59 07:59 15:59 Intake Total 100 / 100 100 / 100 Output Total 2425 / 2425 1999 / 1999 600 / 600 Balance -2325 / -2325 -1900 / -1900 -600 / -600
[2018-05-12] MEDS ORDERED: 0.9 % Sodium Chloride 250 ML ONE (12:15)
[2018-05-12] MEDS ORDERED: Ipratropium/Albuterol Neb 3 ML IH SCH (16:00)
[2018-05-12] MEDS ORDERED: D5% in Water 1,000 ML IVC PRN (18:14)
[2018-05-12] MEDS ORDERED: Dextrose Gel 15 GM/37.5 ML TUBE PO PRN ×2 (18:14)
[2018-05-12] MEDS ORDERED: *HR* Dextrose 50 % in Water (Syg) 50 ML SYRINGE IVP PRN (18:14)
[2018-05-12] MEDS ORDERED: Naloxone 0.4 MG/ML INJ IVP PRN (18:14)
[2018-05-12] MEDS: Dexmedetomidine HCl 400 MCG/100 ML MLS IVC SCH (19:22)
[2018-05-12] MEDS: Nitroglycerin 0.4 MG TAB.SUBL SL ONE ×3 (20:11→20:23)
[2018-05-12] MEDS: Ipratropium/Albuterol Neb 3 ML IH SCH (21:06)
[2018-05-13] MEDS: Ipratropium/Albuterol Neb 3 ML IH SCH ×4 (03:46→22:30)
[2018-05-13] MEDS: *HR* Heparin 5,000 UNIT/ML VIAL SQ SCH ×3 (05:51→22:19)
[2018-05-13] MEDS: Insulin LISPRO 300 UNITS/3 ML VIAL SQ SCH ×4 (05:52→20:00)
--- NOTE | 2018-05-13 07:37 | Nephrology Progress Note ---
Date of Encounter: 05/13/18 Time of Encounter: 07:36 - Assessment and Plan (1) Acute kidney injury superimposed on chronic kidney disease Current Visit: Yes Status: Acute Patient has CKD with a baseline eGFR in the low 20s. Her renal function has decreased to an eGFR of 15 in the face of hypovolemic shock that is now improved and progressive anemia. She has multifactorial prerenal azotemia/ATN. Avoid nephrotoxins. Titrate medications for her renal function. She had a recent CT scan of her abdomen that was negative for hydronephrosis so I do not think she needs a renal ultrasound at this time. Her renal function is stable with she has good urine output. Continue to monitor. No need for dialysis. (2) Shock Current Visit: Yes Status: Acute Improved. She is not on pressors. (3) Diarrhea Current Visit: Yes Status: Acute Per the primary team. Patient reports this is improved. Qualifiers: Diarrhea type: unspecified type Qualified Code(s): R19.7 - Diarrhea, unspecified (4) Metabolic acidosis Current Visit: Yes Status: Acute Resolved. (5) Anemia Current Visit: No Status: Chronic Defer work-up to primary team. Qualifiers: Anemia type: unspecified type Qualified Code(s): D64.9 - Anemia, unspecified Subjective Principal diagnosis: Syncope Interval history: Patient seen. No new complaint. She feels better. Objective - Vital Signs Vital signs: Vital Signs Temp Pulse Resp BP Pulse Ox 05/13/18 03:57 98.2 F 74 18 121/61 95 05/13/18 03:46 16 97 05/12/18 23:41 98.3 F 62 18 136/65 94 05/12/18 21:39 90 18 136/88 97 05/12/18 21:08 18 95 05/12/18 20:20 73 18 116/68 94 05/12/18 20:15 74 20 118/69 94 05/12/18 20:10 57 20 137/94 97 05/12/18 19:47 98.6 F 62 18 139/69 98 05/12/18 17:45 69 20 133/78 96 05/12/18 16:50 20 96 05/12/18 15:00 59 20 131/70 96 05/12/18 14:10 98.6 F 56 18 120/50 98 05/12/18 14:00 56 18 120/50 98 05/12/18 13:00 73 20 124/69 97 05/12/18 12:44 98.6 F 59 16 120/69 97 05/12/18 12:29 98.7 F 59 16 120/77 97 05/12/18 12:00 98.7 F 57 16 120/77 97 05/12/18 11:00 74 16 108/54 100 05/12/18 10:00 70 16 100 05/12/18 09:31 75 05/12/18 09:00 68 16 112/63 100 05/12/18 08:00 97.5 F L 75 16 122/68 100 Intake and Output 05/12/18 05/12/18 05/13/18 15:59 23:59 07:59 Intake Total 350 / 350 200 / 200 Output Total 2350 / 2350 600 / 600 950 / 950 Balance -2000 / -2000 -600 / -600 -750 / -750 Intake: Oral 200 / 200 Blood Product 350 / 350 Rbcs Leuko Poor As-1 Unit 350 / 350 [id number] Output: Urine 600 / 600 950 / 950 Catheter 2350 / 2350 Other: # Voids 1 # Urine Diapers 1 # Bowel Movements 1 Weight 106 kg Blood Glucose* 139 168 Patient Weight 05/13/18 23:59 Weight 106 kg - General Appearance General appearance: Present: well-developed, well-nourished, obese EENT: Present: ATNC Neck: Present: supple Cardiology: Present: regular rate Neurologic: Present: alert and oriented x3 Psychiatric: Present: mood/affect appropriate - Lab 05/13/18 08:38 05/13/18 08:38 Most recent lab results ABG pH 7.28 pH Units (7.32-7.45) L 05/12/18 05:55 ABG pCO2 50 mmHg (35-45) H 05/12/18 05:55 ABG pO2 116 mmHg (85-104) H 05/12/18 05:55 ABG HCO3 23 mEq/L (21-27) 05/12/18 05:55 ABG O2 Saturation 98 % (95-98) 05/12/18 05:55 Calcium 8.7 mg/dL (8.6-10.3) 05/12/18 04:17 Phosphorus 4.7 mg/dL (2.7-4.5) H 05/12/18 04:17 Magnesium 2.0 mg/dL (1.6-2.6) 05/12/18 04:17 Consult Discharge Plan - Plan Referrals: Aranza Ring [Primary Care Provider] -
[2018-05-13] MEDS: Famotidine 20 MG/2 ML VIAL IVP SCH (07:50)
[2018-05-13] MEDS: methylPREDNISolone 125 MG/2 ML VIAL IVP SCH (07:50)
[2018-05-13] MEDS: Cholestyramine 4 GM POWD.PACK PO SCH ×4 (07:50→22:19)
[2018-05-13 09:04] LABS: Basophils % 0.1 %; Hematocrit 29.6 % (35.3-44.9); Hemoglobin 9.8 g/dL (11.5-15.4); Immature Granulocytes % 0.5 % (0-4); Lymphocytes # 0.7 K/mcL (0.6-4.6); Lymphocytes % 4.6 %; Mean Corpuscular HGB Conc 33.1 g/dL (31.6-35.5); Mean Corpuscular Hemoglobin 30.1 pg (28.0-33.3); Mean Corpuscular Volume 90.8 fL (83.0-100.0); Mean Platelet Volume 9.9 fL (9.4-12.4); Monocytes # 0.4 K/mcL (0.0-1.3); Monocytes % 2.3 %; Neutrophils # 14.8 K/mcL (1.6-8.9); Platelet Count 240 K/mcL (140-400); Red Blood Count 3.26 M/mcL (3.82-4.97); Red Cell Distribution Width 13.2 % (11.5-14.5); Segmented Neutrophils % 92.5 %
[2018-05-13 09:26] LABS: Albumin 4.1 g/dL (3.5-5.7); Calcium 8.8 mg/dL (8.6-10.3); Potassium 3.7 mEq/L (3.5-5.1)
[2018-05-13 09:50] LABS: Vitamin B12 1485 pg/mL (250-1100)
[2018-05-13 09:53] LABS: Folate > 22.3 ng/mL (3.0-16.0)
--- NOTE | 2018-05-13 11:19 | Internal Med Progress Note ---
Hospitalist Progress Note - Encounter Date of Encounter: 05/13/18 Time of Encounter: 11:16 - Subjective Interval History: Evaluated patient earlier today. She was feeling much better overall. Denies any new complaints at this time. No nausea or vomiting. She reports decent urine output. No trouble passing urine. No fevers or chills reported overni ght. - Exam Vitals: Temp Pulse Resp BP Pulse Ox 98.2 F 76 18 142/78 95 05/13/18 11:10 05/13/18 11:10 05/13/18 11:10 05/13/18 11:10 05/13/18 11:10 Exam: General: Patient is alert, no acute distress, oriented x 3 Respiratory: Good respiratory effort. Normal breath sounds. Prolonged expiratory phase. Cardiovascular: Regular rate and rhythm. s1 and s2 normal . Abdomen: Abdomen is soft, nontender. Bowel sounds are present Musculoskeletal: Spontaneously moving all extremities Skin: warm, dry, intact. Neuro: Alert oriented x 3 normal cranial nerves, no focal deficits - Assessment and Plan (1) Acute kidney injury superimposed on chronic kidney disease Current Visit: Yes Status: Acute Assessment and Plan: Creatinine 3.17 today. Appears to be stabilizing. We will follow nephrology recommendations. Multifactorial etiology. Could be related to recent hypovolemic shock with anemia. Continue to monitor urine output and renal function. (2) Acute respiratory failure with hypoxia Current Visit: Yes Status: Acute Assessment and Plan: Improved. Patient currently on 2 L also receiving steroids. Will de-escalate. Continue bronchodilators. (3) Hyperkalemia Current Visit: Yes Status: Resolved Assessment and Plan: Potassium 3.7 today. (4) Septic shock Current Visit: Yes Status: Acute Assessment and Plan: From possible infectious diarrhea. Stool panel has been negative. Will complete 5 day treatment with Cipro and Flagyl and then stop antibiotics. Will place her on lactobacillus. (5) Infectious diarrhea Current Visit: Yes Status: Suspected Assessment and Plan: Management as above. Continue Cipro and Flagyl. Will transition to oral antibiotics. DVT Prophylaxis: On subcutaneous heparin - Time Spent with Patient Total time spent is greater than 50% in coordination of care (as documented) at patient's floor/unit and/or counseling patient: Internal Medicine: Result - Labs CBC & Chem 7: 05/13/18 08:38 05/13/18 08:38 Labs: Short CBC 05/13/18 Range/Units 08:38 WBC 16.0 H D (4.3-11.1) K/mcL Hgb 9.8 L D (11.5-15.4) g/dL Hct 29.6 L (35.3-44.9) % Plt Count 240 D (140-400) K/mcL Neutrophils # 14.8 H (1.6-8.9) K/mcL BMP 05/13/18 08:38 Sodium 140 Potassium 3.7 Chloride 104 Carbon Dioxide 23 BUN 28 H Creatinine 3.17 H Glucose 199 H Calcium 8.8 Liver Function 05/13/18 Range/Units 08:38 Albumin 4.1 (3.5-5.7) g/dL - ABG Interpretation ABG results: ABG ABG pH 7.28 pH Units (7.32-7.45) L 05/12/18 05:55 ABG pCO2 50 mmHg (35-45) H 05/12/18 05:55 ABG pO2 116 mmHg (85-104) H 05/12/18 05:55 ABG O2 Saturation 98 % (95-98) 05/12/18 05:55 PT/INR, D-dimer PT 12.1 Seconds (9.4-12.1) 05/09/18 13:59 Consult Discharge Plan - Plan Referrals: Aranza Ring [Primary Care Provider] -
--- NOTE | 2018-05-13 11:58 | Electrocardiograph Report ---
[place] [id number] Test Date: 2018-05-12 Pat Name: Toña Deleon Department: 110 Room: 2N14 Gender: F Cam Maker: ELLIE : 1955 Requested By: Andreas Panda Order Number: [id number] Reading MD: Dary Rainey Measurements Intervals [place] Rate: 63 P: 44 TX: 156 QRS: -5 QRSD: 108 T: 29 QT: 435 QTc: 442 Interpretive Statements SINUS RHYTHM LOW QRS VOLTAGE IN PRECORDIAL LEADS POSSIBLE LEFT VENTRICULAR HYPERTROPHY Electronically Signed On 05-13-2018 11:56:46 EDT by Dary Rainey
[2018-05-13] MEDS: Lactobacillus 1 EACH CAP.SPRINK PO SCH ×2 (12:07→19:59)
[2018-05-13] MEDS: metroNIDAZOLE 500 MG TABLET PO SCH ×2 (16:15→19:59)
[2018-05-13] MEDS ORDERED: Insulin LISPRO 300 UNITS/3 ML VIAL SQ SCH (16:30)
[2018-05-13] MEDS ORDERED: Gabapentin 300 MG CAPSULE PO SCH (21:00)
[2018-05-13] MEDS ORDERED: *HR* Metoprolol 5 MG/5 ML VIAL IVP ONE ×2 (22:12→22:16)
[2018-05-14] MEDS ORDERED: *HR* Metoprolol 5 MG/5 ML VIAL IVP ONE (00:19)
[2018-05-14] MEDS: Ipratropium/Albuterol Neb 3 ML IH SCH ×2 (03:44→10:07)
[2018-05-14] MEDS: *HR* Heparin 5,000 UNIT/ML VIAL SQ SCH (05:45)
[2018-05-14 06:04] LABS: Basophils % 0.1 %; Hemoglobin 9.1 g/dL (11.5-15.4); Immature Granulocytes % 0.7 % (0-4); Lymphocytes # 1.2 K/mcL (0.6-4.6); Lymphocytes % 6.8 %; Mean Corpuscular HGB Conc 32.5 g/dL (31.6-35.5); Mean Corpuscular Hemoglobin 30.1 pg (28.0-33.3); Mean Corpuscular Volume 92.7 fL (83.0-100.0); Mean Platelet Volume 9.6 fL (9.4-12.4); Monocytes # 1.1 K/mcL (0.0-1.3); Neutrophils # 15.2 K/mcL (1.6-8.9); Platelet Count 242 K/mcL (140-400); Red Blood Count 3.02 M/mcL (3.82-4.97); Red Cell Distribution Width 13.4 % (11.5-14.5); Segmented Neutrophils % 86.4 %
[2018-05-14 06:24] LABS: Albumin 3.9 g/dL (3.5-5.7); Calcium 8.8 mg/dL (8.6-10.3); Phosphorous 3.6 mg/dL (2.7-4.5); Potassium 3.8 mEq/L (3.5-5.1)
[2018-05-14] MEDS: Insulin LISPRO 300 UNITS/3 ML VIAL SQ SCH ×2 (07:29→12:06)
[2018-05-14] MEDS: metroNIDAZOLE 500 MG TABLET PO SCH (07:37)
[2018-05-14] MEDS: Cholestyramine 4 GM POWD.PACK PO SCH ×2 (07:37→12:05)
[2018-05-14] MEDS: Lactobacillus 1 EACH CAP.SPRINK PO SCH (07:37)
[2018-05-14] MEDS: Famotidine 20 MG/2 ML VIAL IVP SCH (07:38)
--- NOTE | 2018-05-14 07:54 | Nephrology Progress Note ---
Date of Encounter: 05/14/18 Time of Encounter: 07:52 - Assessment and Plan (1) Acute kidney injury superimposed on chronic kidney disease Current Visit: Yes Status: Acute Patient has CKD with a baseline eGFR in the low 20s. Her renal function decreased to an eGFR of 15 in the face of hypovolemic shock that is now improved and progressive anemia. She has multifactorial prerenal azotemia/ATN. Avoid nephrotoxins. Titrate medications for her renal function. She had a recent CT scan of her abdomen that was negative for hydronephrosis. Her renal function is stable with she has good urine output. Continue to monitor. No need for dialysis. Her renal function is starting to improve. (2) Diarrhea Current Visit: Yes Status: Acute Qualifiers: Diarrhea type: unspecified type Qualified Code(s): R19.7 - Diarrhea, unspecified (3) Anemia Current Visit: No Status: Chronic Defer work-up to primary team. Qualifiers: Anemia type: unspecified type Qualified Code(s): D64.9 - Anemia, u nspecified Subjective Principal diagnosis: Syncope Interval history: Patient seen. No new complaint. She feels better. Objective - Vital Signs Vital signs: Vital Signs Temp Pulse Resp BP Pulse Ox 05/14/18 07:09 98.5 F 75 18 163/85 98 05/14/18 04:31 98.6 F 62 18 136/72 92 05/14/18 03:45 14 96 05/13/18 22:54 98.4 F 105 17 140/90 96 05/13/18 22:32 14 98 05/13/18 21:56 98.0 F 109 17 146/96 93 05/13/18 19:05 98.4 F 61 18 134/56 96 05/13/18 16:17 98.0 F 67 18 142/76 95 05/13/18 15:12 18 142/78 93 05/13/18 11:10 98.2 F 76 18 142/78 95 05/13/18 09:47 16 159/78 95 Intake and Output 05/13/18 05/13/18 05/14/18 15:59 23:59 07:59 Intake Total 240 / 240 120 / 120 Output Total 600 / 600 400 / 400 Balance -360 / -360 120 / 120 -400 / -400 Intake: Oral 240 / 240 120 / 120 Output: Urine 600 / 600 400 / 400 Other: Meal Lunch Dinner Percent of Meal Consumed 100% 60% Stool Size Small Stool Consistency loose Weight 106 kg Blood Glucose* 227 169 125 - General Appearance General appearance: Present: well-developed, well-nourished, obese EENT: Present: ATNC Cardiology: Present: regular rate Neurologic: Present: alert and oriented x3 Psychiatric: Present: mood/affect appropriate - Lab 05/14/18 05:23 05/14/18 05:23 Most recent lab results ABG pH 7.28 pH Units (7.32-7.45) L 05/12/18 05:55 ABG pCO2 50 mmHg (35-45) H 05/12/18 05:55 ABG pO2 116 mmHg (85-104) H 05/12/18 05:55 ABG HCO3 23 mEq/L (21-27) 05/12/18 05:55 ABG O2 Saturation 98 % (95-98) 05/12/18 05:55 Calcium 8.8 mg/dL (8.6-10.3) 05/14/18 05:23 Phosphorus 3.6 mg/dL (2.7-4.5) 05/14/18 05:23 Magnesium 2.0 mg/dL (1.6-2.6) 05/12/18 04:17 Consult Discharge Plan - Plan Referrals: Aranza Ring [Primary Care Provider] -
[2018-05-14] MEDS ORDERED: predniSONE 20 MG TABLET PO SCH (09:00)
[2018-05-14 11:54] VITALS: BP 159/88
--- NOTE | 2018-05-14 12:06 | Discharge Summary ---
- NOTES TO OUTPATIENT PROVIDER Notes to Outpatient Provider: Patient was hospitalized here with septic shock and hypotension possibly related to infectious diarrhea. She was admitted to the ICU and given IV fluids and antibiotics. Her symptoms have slowly improved. Her stool cultures have been negative. The disease and her creatinine hitesh up to 3.17. It is now trending down. Patient also has anemia with hemoglobin going down to 7.6. She did receive 1 unit PRBC and her counts have improved. Anemia is likely due to chronic kidney disease but patient may also have underlying occult GI bleed. Stool was positive for occult blood. Patient is getting set up as outpatient for colonoscopy and is advised to get this done for further workup. At this time she is clinically stable for discharge. She was also treated for acute respiratory failure related to underlying asthma. Patient was started on steroids and bronchodilators and her respiratory symptoms have improved. She will be discharged on a tapering course of oral steroids. She will follow up with her primary care provider for further management of her chronic medical conditions. Orders not resulted at time of discharge: Pending orders 05/09/18 14:43 Culture,Blood [BC] Stat 05/10/18 19:55 Ova & Parasite Exam Stat 05/12/18 04:17 Ionized Calcium,venous blood Routine 05/13/18 22:11 EKG [ECG 12 lead ECG] [ECG] Routine Date of Encounter: 05/14/18 Time of Encounter: 12:03 - Discharge Diagnosis (1) Septic shock Priority: Primary Status: Resolved (2) Acute kidney injury superimposed on chronic kidney disease Priority: Secondary Status: Acute (3) Acute respiratory failure with hypoxia Priority: Secondary Status: Acute (4) Hyperkalemia Priority: Secondary Status: Resolved (5) Infectious diarrhea Priority: Secondary Status: Suspected Hospital course: Ms. Deleon is a 62 year old female patient with history of hypertension, hyperlipidemia who was hospitalized here with septic shock and hypotension possibly related to infectious diarrhea. She was admitted to the ICU and given IV fluids and antibiotics. Her symptoms have slowly improved. Her stool cultures have been negative. The disease and her creatinine hitesh up to 3.17. It is now trending down. Patient also has anemia with hemoglobin going down to 7.6. She did receive 1 unit PRBC and her counts have improved. Anemia is likely due to chronic kidney disease but patient may also have underlying occult GI bleed. Stool was positive for occult blood. Patient is getting set up as outpatient for colonoscopy and is advised to get this done for further workup. At this time she is clinically stable for discharge. She was also treated for acute respiratory failure related to underlying asthma. Patient was started on steroids and bronchodilators and her respiratory symptoms have improved. She will be discharged on a tapering course of oral steroids. She will follow up with her primary care provider for further management of her chronic medical conditions. Discharge discussed with: patient, nurse - Time Spent with Patient Total time spent providing and/or coordinating discharge services: Greater than 30 minutes (35 min) - Discharge Medications Prescriptions: RX: Cholestyramine 4 gm PO QIDAC #120 powd.pack RX: Lactobacillus [Culturelle] 1 each PO BID #14 cap.sprink RX: metroNIDAZOLE [Flagyl] 500 mg PO TID #3 tablet RX: predniSONE [PredniSONE] 10 mg PO DAILY 6 Days #12 tablet Home Medications: RX: Albuterol Sulfate [Ventolin Hfa] 2 puff IH Q4-6H PRN 01/20/17 [History] RX: Ascorbic Acid [Vitamin C] 500 mg PO DAILY 01/20/17 [History] RX: Bupropion HCl [Wellbutrin Xl] 300 mg PO DAILY 01/20/17 [History] RX: Cholecalciferol (Vitamin D3) [Vitamin D3] 5,000 unit PO DAILY 01/20/17 [History] RX: Cyanocobalamin (Vitamin B-12) [Vitamin B12] 1,000 mcg PO DAILY 01/20/17 [History] RX: Folic Acid 1 mg PO DAILY 01/20/17 [History] RX: Gabapentin [Neurontin] 600 mg PO HS 03/16/17 [History] RX: Trazodone HCl 200 mg PO HS 04/22/17 [History] RX: Iron Ag,Ps/C/Fa6/B12/Zn/SA/Sto [Niferex Tablet] 1 each PO DAILY 11/06/17 [History] RX: Mometasone/Formoterol [Dulera 200 Mcg/5 Mcg Inhaler] 2 puff IH BID 11/07/17 [History] RX: Paroxetine [Paxil] 30 mg PO DAILY 12/18/17 [History] RX: Calcitriol [Rocaltrol] 0.25 mcg PO DAILY 01/30/18 [History] RX: Dicyclomine [Bentyl] 20 mg PO QID 01/30/18 [History] RX: Famotidine [Pepcid] 20 mg PO HS tablet 01/31/18 [Rx] RX: Lisinopril [Zestril] 20 mg PO DAILY 05/09/18 [History] RX: Cholestyramine 4 gm PO QIDAC #120 powd.pack 05/14/18 [Rx] RX: Lactobacillus [Culturelle] 1 each PO BID #14 cap.sprink 05/14/18 [Rx] RX: metroNIDAZOLE [Flagyl] 500 mg PO TID #3 tablet 05/14/18 [Rx] RX: predniSONE [PredniSONE] 10 mg PO DAILY 6 Days #12 tablet 05/14/18 [Rx] Allergies/Adverse Reactions: Allergy/AdvReac Type Severity Reaction Status Date / Time codeine AdvReac Nausea Verified 12/18/17 14:53 morphine AdvReac Nausea Verified 12/18/17 14:53 Penicillins [PCN] AdvReac Rash Verified 12/18/17 14:53 Sulfa (Sulfonamide AdvReac Rash Verified 12/18/17 14:53 Antibiotics) Date of admission: 05/09/18 18:07 Primary care physician: Aranza Ring Consults: 05/09/18 20:05 Consult to Critical Care [CONS] Routine Consulting Provider: Pulm Crit Care & Hyacinth Carpio Reason for Consult: septic shock Call Completed: Yes 05/12/18 07:58 Consult to Nephrology [CONS] Routine Consulting Provider: Kidney Shirin/CAROLINE/RIO/ELLYN Reason for Consult: Elevated creatinine, CKD4 Time Notified: 07:58 Call Completed: No Discharging clinician: Andreas Panda Anticipated date of discharge: 05/14/18 - Constitutional Vitals: Temp Pulse Resp BP Pulse Ox 98.4 F 64 18 159/88 96 05/14/18 11:50 05/14/18 11:50 05/14/18 11:50 05/14/18 11:50 05/14/18 11:50 General appearance: Present: cooperative, A&O X 3, pleasant, obese, answers questions appropriately Exam: . - Respiratory Respiratory exam: Present: CTAB. Absent: accessory muscle use, rales, rhonchi, wheezes - Cardiovascular Cardiovascular exam: Present: RRR, +S1, +S2. Absent: diastolic murmur, gallop, rubs, systolic murmur - GI/Abdominal GI/Abdominal exam: Present: normal bowel sounds, soft, no peritoneal signs. Absent: distended, tenderness - Patient Status Disposition: Home, Self-Care Condition: Serious Functional capacity at discharge: independent ambulation Overall status at discharge: patient is progressing back to baseline - Ambulatory Orders Ambulatory Orders: Basic Metabolic Panel [CHEM] Time Frame: 1 Week, Facility: [facility], Location: Lab - Discharge Instructions Instructions: Cholestyramine (By mouth), Prednisone (By mouth), Metronidazole (By mouth), Probiotic (By mouth), Acute Respiratory Distress Syndrome (DC) Follow Up With: Aranza Ring [Primary Care Provider] - (in 1-2 weeks) Amrit Randle MD [Partnered Physician] - (Webrequest made 05/14/18@ 12:20 Office will call you to set up appointment. ) Ailyn Aggarwal MD [Partnered Physician] - (For colonoscopy and EGD regarding possible occult GI bleed SMILEY Webrequest sent 05/14 @ 12:23 Office will call you to schedule appointment. ) Additional Instructions: Hold lisinopril for 3 more days and resume after - Diet and Activity Activity: increase activity as tolerated Diet: low fat, low cholesterol, low salt diet
--- NOTE | 2018-05-16 16:14 | Electrocardiograph Report ---
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
[2018-05-17 09:04] LABS: Ova & Parasite Stain NEGATIVE (Negative)
--- NOTE | 2018-05-17 22:15 | Electrocardiograph Report ---
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
== END 2018-05-14 14:27 | disposition home or self-care (01) | DRG 720 ==
LOC: EMEROOARM 13:34 → ICNU 18:07 → SUATTDRO 18:07 → ICNU 18:35 → 2NNU 05-12 18:07
PROVIDERS: ADMIT Internal Medicine; ATTEND Internal Medicine

== ENCOUNTER 2021-12-18 22:34 | Observation (INO) ==
[2021-12-19] MEDS ORDERED: Isovue-370 500 ML BOTTLE IVP ONE (01:09)
[2021-12-19] MEDS ORDERED: 0.9 % Sodium Chloride 1,000 ML IV ONE ×2 (01:11→02:54)
[2021-12-19] MEDS ORDERED: Ondansetron 4 MG/2 ML VIAL IVP PRN ×2 (01:11→03:22)
[2021-12-19 01:28] LABS: Basophils % 0.7 %; Eosinophils % 0.2 %; Hematocrit 40.6 % (35.3-44.9); Hemoglobin 12.5 g/dL (11.5-15.4); Immature Granulocytes % 0.3 % (0-4); Lymphocytes # 1.4 K/mcL (0.6-4.6); Lymphocytes % 23.9 %; Mean Corpuscular HGB Conc 30.8 g/dL (31.6-35.5); Mean Corpuscular Hemoglobin 30.2 pg (28.0-33.3); Mean Corpuscular Volume 98.1 fL (83.0-100.0); Mean Platelet Volume 9.8 fL (9.4-12.4); Monocytes # 0.6 K/mcL (0.0-1.3); Monocytes % 10.1 %; Neutrophils # 3.8 K/mcL (1.6-8.9); Platelet Count 198 K/mcL (140-400); Red Blood Count 4.14 M/mcL (3.82-4.97); Red Cell Distribution Width 12.6 % (11.5-14.5); Segmented Neutrophils % 64.8 %; White Blood Count 5.9 K/mcL (4.3-11.1)
[2021-12-19 01:40] LABS: INR 1.5; Prothrombin Time 16.3 Seconds (9.4-12.1)
[2021-12-19 01:43] LABS: Activated Partial Thrombo Time 45.4 Seconds (26.0-36.0)
[2021-12-19 01:45] LABS: Alanine Aminotransferase 21 Units/L (7-52); Albumin 4.4 g/dL (3.5-5.7); Albumin/Globulin Ratio 1.5 (1.1-2.2); Alkaline Phosphatase 112 Units/L (34-104); Aspartate Amino Transferase 17 Units/L (13-39); BUN/Creatinine Ratio 8 (6-26); Bilirubin,Indirect 0.3 mg/dL (0.0-1.0); Bilirubin,Total 0.3 mg/dL (0.3-1.0); Blood Urea Nitrogen 32 mg/dL (8-23); Calcium 8.4 mg/dL (8.6-10.3); Carbon Dioxide 19 mEq/L (23-29); Chloride 108 mEq/L (98-107); Glucose 123 mg/dL (70-105); Lipase 26 Units/L (11-82); Osmolality,Calculated 292 (280-300); Potassium 4.9 mEq/L (3.5-5.1); Sodium 137 mEq/L (136-145); Total Protein 7.4 g/dL (6.4-8.9); Troponin I < 0.03 ng/mL (< 0.04); eGFR For African Americans 14 (> 60); eGFR For Non-African Americans 12 (> 60)
[2021-12-19 02:33] LABS: Bacteria,Urine Few per hpf (None-Few); Bilirubin,Urine Negative (Negative); Blood,Urine Negative (Negative); Clarity,Urine Clear (Clear); Color,Urine Light-Yellow (Yellow); Glucose,Urine (UA) Normal (Normal); Hyaline Casts,Urine Few per lpf (None Seen); Ketones,Urine Negative (Negative); Leukocyte Esterase,Urine Moderate (Negative); Mucus,Urine Few per lpf (None-Few); Nitrite,Urine Negative (Negative); Protein,Urine 50 mg/dL (Neg-Trace); RBC,Urine 0-3 per hpf (0-3); Specific Gravity,Urine 1.021 (1.010-1.025); Squamous Epithelial Cell,Urine Few per hpf (None-Few); Urobilinogen,Urine Normal (Normal); WBC,Urine 15-30 per hpf (0-3)
[2021-12-19] MEDS ORDERED: cefTRIAXone 1,000 MG in 0.9 % Sodium Chloride Mini Bag 100 ML IVPB ONE (02:54)
[2021-12-19 02:58] LABS: Adenovirus Not Detected (Not Detect); Coronavirus 229E Not Detected (Not Detect); Coronavirus HKU1 Not Detected (Not Detect); Coronavirus NL63 Not Detected (Not Detect); Coronavirus OC43 Not Detected (Not Detect)
[2021-12-19 03:00] LABS: Bordetella Pertussis Not Detected (Not Detect); Chlamydophila pneumoniae Not Detected (Not Detect); Human Metapneumovirus Not Detected (Not Detect); Human Rhinovirus/Enterovirus Not Detected (Not Detect); Influenza A Subtype 2009 H1 Not Detected (Not Detect); Influenza B Not Detected (Not Detect); Mycoplasma pneumoniae Not Detected (Not Detect); Parainfluenza Virus 1 Not Detected (Not Detect); Parainfluenza Virus 2 Not Detected (Not Detect); Parainfluenza Virus 3 Not Detected (Not Detect); Parainfluenza Virus 4 Not Detected (Not Detect); Respiratory Syncytial Virus Not Detected (Not Detect); SARS-CoV-2 DETECTED (Not Detect)
[2021-12-19] MEDS ORDERED: *HR* HYDROcodone/Acet 5/325 mg TABLET PO PRN (03:22)
[2021-12-19] MEDS ORDERED: Melatonin 3 MG TABLET PO PRN (03:22)
[2021-12-19] MEDS ORDERED: Naloxone 0.4 MG/ML INJ IVP PRN (03:22)
[2021-12-19] MEDS ORDERED: Acetaminophen 325 MG TABLET PO PRN (03:22)
[2021-12-19] MEDS: Ipratropium 1 PUFF INHALER IH SCH ×4 (04:15→19:45)
[2021-12-19 05:30] LABS: Basophils % 0.6 %; Eosinophils % 0.2 %; Hematocrit 40.1 % (35.3-44.9); Hemoglobin 12.3 g/dL (11.5-15.4); Immature Granulocytes % 0.2 % (0-4); Lymphocytes # 1.6 K/mcL (0.6-4.6); Lymphocytes % 32.4 %; Mean Corpuscular HGB Conc 30.7 g/dL (31.6-35.5); Mean Corpuscular Hemoglobin 30.4 pg (28.0-33.3); Mean Platelet Volume 10.1 fL (9.4-12.4); Monocytes # 0.5 K/mcL (0.0-1.3); Monocytes % 9.6 %; Neutrophils # 2.7 K/mcL (1.6-8.9); Platelet Count 171 K/mcL (140-400); Red Blood Count 4.05 M/mcL (3.82-4.97); Red Cell Distribution Width 12.5 % (11.5-14.5); White Blood Count 4.8 K/mcL (4.3-11.1)
[2021-12-19 06:38] LABS: Troponin I < 0.03 ng/mL (< 0.04)
[2021-12-19 06:55] LABS: Albumin 4.1 g/dL (3.5-5.7); Albumin/Globulin Ratio 1.7 (1.1-2.2); Bilirubin,Total 0.2 mg/dL (0.3-1.0); Calcium 7.8 mg/dL (8.6-10.3); Globulin 2.4 g/dL (2.4-3.5); Magnesium 1.6 mg/dL (1.6-2.6); Phosphorous 4.2 mg/dL (2.7-4.5); Potassium 4.7 mEq/L (3.5-5.1); Total Protein 6.5 g/dL (6.4-8.9)
[2021-12-19] MEDS: Budesonide/Formoterol 160/4.5 1 PUFF INH IH SCH ×2 (07:27→19:44)
[2021-12-19] MEDS ORDERED: *HR* Dextrose 50 % in Water (Syg) 50 ML SYRINGE IVP PRN (07:35)
[2021-12-19] MEDS ORDERED: Dextrose Gel 15 GM/37.5 ML TUBE PO PRN ×2 (07:35)
[2021-12-19] MEDS ORDERED: D5% in Water 1,000 ML IVC PRN (07:35)
[2021-12-19] MEDS ORDERED: Ringers Solution, Lactated 1,000 ML IVC SCH (07:45)
[2021-12-19] MEDS ORDERED: Sodium Bicarbonate 75 MEQ in 0.45 % Sodium Chloride 1,000 ML IVC SCH (08:00)
[2021-12-19] MEDS: Chlorhexidine Rinse 15 ML MOUTHWASH MM SCH ×2 (08:29→20:21)
[2021-12-19] MEDS: *HR* Heparin 5,000 UNIT/ML VIAL SQ SCH ×2 (08:31→14:09)
[2021-12-19] MEDS: Multivit/Ca/Min/Fe/FA 1 TAB TABLET PO SCH (08:31)
[2021-12-19] MEDS: Lactobacillus 1 EACH CAP.SPRINK PO SCH ×2 (08:31→20:21)
[2021-12-19] MEDS ORDERED: Cholecalciferol (D-3) 1,000 UNIT (25MCG) TABLET PO SCH (09:00)
[2021-12-19 09:28] LABS: Creatine Kinase 61 Units/L (30-223); Uric Acid 8.6 mg/dL (2.3-7.6)
[2021-12-19 10:38] LABS: Protein/Creatinine Ratio,Urine 0.61 mg/mg (0.00-0.20); Sodium, Urine 36.2 mEq/L
[2021-12-19] MEDS: Famotidine 20 MG TABLET PO SCH (20:21)
[2021-12-19] MEDS: Gabapentin 300 MG CAPSULE PO SCH (20:21)
[2021-12-19] MEDS: Apixaban 5 MG TABLET PO SCH (20:21)
[2021-12-20 03:05] LABS: Calcium 7.7 mg/dL (8.6-10.3); Magnesium 1.7 mg/dL (1.6-2.6); Phosphorous 3.8 mg/dL (2.7-4.5); Potassium 5.5 mEq/L (3.5-5.1)
[2021-12-20 06:08] LABS: Hematocrit 32.8 % (35.3-44.9); Immature Granulocytes % 0.3 % (0-4); Lymphocytes # 1.1 K/mcL (0.6-4.6); Lymphocytes % 33.2 %; Mean Corpuscular HGB Conc 31.4 g/dL (31.6-35.5); Mean Corpuscular Volume 95.6 fL (83.0-100.0); Mean Platelet Volume 9.6 fL (9.4-12.4); Monocytes # 0.3 K/mcL (0.0-1.3); Monocytes % 10.6 %; Neutrophils # 1.8 K/mcL (1.6-8.9); Platelet Count 165 K/mcL (140-400); Red Blood Count 3.43 M/mcL (3.82-4.97); Red Cell Distribution Width 12.4 % (11.5-14.5); Segmented Neutrophils % 55.9 %; White Blood Count 3.2 K/mcL (4.3-11.1)
[2021-12-20 06:10] LABS: Hemoglobin 10.3 g/dL (11.5-15.4)
[2021-12-20] MEDS: Ipratropium 1 PUFF INHALER IH SCH ×3 (07:23→11:26)
[2021-12-20] MEDS ORDERED: SODIUM ZIRCONIUM CYCLOSILICATE 5 GM POWD.PACK PO ONE (07:37)
[2021-12-20] MEDS ORDERED: Sodium Bicarbonate 150 MEQ in 0.45 % Sodium Chloride 1,000 ML IVC SCH (07:45)
[2021-12-20] MEDS: cefTRIAXone 1,000 MG in 0.9 % Sodium Chloride Mini Bag 100 ML IVPB SCH (07:49)
[2021-12-20] MEDS: Chlorhexidine Rinse 15 ML MOUTHWASH MM SCH ×2 (07:49→20:08)
[2021-12-20] MEDS: PARoxetine 10 MG TABLET PO SCH (07:50)
[2021-12-20] MEDS: BuPROPion XL (24 HR) 150 MG TABLET PO SCH (07:50)
[2021-12-20] MEDS: ARIPiprazole 10 MG TABLET PO SCH (07:50)
[2021-12-20] MEDS: calcitrioL 0.25 MCG CAPSULE PO SCH (07:51)
[2021-12-20] MEDS: Multivit/Ca/Min/Fe/FA 1 TAB TABLET PO SCH (07:51)
[2021-12-20] MEDS: Folic Acid 1 MG TABLET PO SCH (07:51)
[2021-12-20] MEDS: Cyanocobalamin (B-12) 1,000 MCG TABLET PO SCH (07:51)
[2021-12-20] MEDS: Lactobacillus 1 EACH CAP.SPRINK PO SCH ×2 (07:51→20:08)
[2021-12-20] MEDS: Apixaban 5 MG TABLET PO SCH ×2 (07:51→20:09)
[2021-12-20] MEDS: Ascorbic Acid 500 MG TABLET PO SCH (07:51)
[2021-12-20] MEDS: Cholecalciferol (D-3) 1,000 UNIT (25MCG) TABLET PO SCH (07:52)
[2021-12-20] MEDS: Budesonide/Formoterol 160/4.5 1 PUFF INH IH SCH ×3 (10:14→21:15)
[2021-12-20] MEDS: Gabapentin 300 MG CAPSULE PO SCH (20:08)
[2021-12-20] MEDS: Famotidine 20 MG TABLET PO SCH (20:09)
[2021-12-20] MEDS: Ipratropium 1 PUFF INHALER IH PRN (21:15)
[2021-12-21 02:54] LABS: Magnesium 1.6 mg/dL (1.6-2.6); Phosphorous 3.9 mg/dL (2.7-4.5)
[2021-12-21 03:20] VITALS: PULSE 67
[2021-12-21 07:19] VITALS: BP 110/74; TEMP 97.7
[2021-12-21] MEDS: cefTRIAXone 1,000 MG in 0.9 % Sodium Chloride Mini Bag 100 ML IVPB SCH (07:35)
[2021-12-21] MEDS: PARoxetine 10 MG TABLET PO SCH (07:35)
[2021-12-21] MEDS: BuPROPion XL (24 HR) 150 MG TABLET PO SCH (07:36)
[2021-12-21] MEDS: Apixaban 5 MG TABLET PO SCH (07:36)
[2021-12-21] MEDS: Chlorhexidine Rinse 15 ML MOUTHWASH MM SCH (07:36)
[2021-12-21] MEDS: Multivit/Ca/Min/Fe/FA 1 TAB TABLET PO SCH (07:36)
[2021-12-21] MEDS: ARIPiprazole 10 MG TABLET PO SCH (07:36)
[2021-12-21] MEDS: Cholecalciferol (D-3) 1,000 UNIT (25MCG) TABLET PO SCH (07:36)
[2021-12-21] MEDS: Lactobacillus 1 EACH CAP.SPRINK PO SCH (07:36)
[2021-12-21] MEDS: calcitrioL 0.25 MCG CAPSULE PO SCH (07:36)
[2021-12-21] MEDS: Folic Acid 1 MG TABLET PO SCH (07:36)
[2021-12-21] MEDS: Cyanocobalamin (B-12) 1,000 MCG TABLET PO SCH (07:37)
[2021-12-21] MEDS: Ascorbic Acid 500 MG TABLET PO SCH (07:37)
[2021-12-21] MEDS: Budesonide/Formoterol 160/4.5 1 PUFF INH IH SCH (07:49)
[2021-12-21] MEDS: Ipratropium 1 PUFF INHALER IH PRN (07:49)
[2021-12-21 11:32] VITALS: O2SAT 96
== END 2021-12-21 11:56 | disposition home or self-care (01) ==
LOC: EMEROOARM 22:34 → 3BNU 22:34 → SUATTDRO 12-19 03:04 → 3BNU 12-19 03:32
PROVIDERS: ADMIT Internal Medicine; ATTEND Internal Medicine